=== PATIENT | male | born 1940 | race Caucasian/White ===

== ENCOUNTER 2023-08-28 18:12 | Inpatient (IN) | payer MEDICARE, SELFPAY ==
[2023-08-28 16:42] LABS: % Basophils 1.2 % (0-2); % Eosinophils 1.3 % (0-6); % Immature Granulocytes 0.3 % (0-0.5); % Lymphocytes 9.3 % (20.5-51.1); % Neutrophils 79.9 % (42.2-75.2); Absolute Basophils 0.1 10^3/uL (0-0.2); Absolute Eosinophils 0.1 10^3/uL (0-0.7); Absolute Lymphocytes 0.7 10^3/uL (1.2-3.4); Absolute Monocytes 0.6 10^3/uL (0.1-0.6); Hematocrit 49.1 % (39.0-52.0); Mean Corp Hgb Conc. 32.6 g/dL (33.0-37.0); Mean Corpuscular Hgb 26.9 pg (27.0-31.0); Mean Corpuscular Volume 82.7 fL (80.0-94.0); Mean Platelet Volume 9.7 fL (7.4-10.4); Nucleated Red Blood Cells % 0 % (-); Platelet Count 397 10^3/uL (130-400); Red Blood Cell Count 5.94 10^6/uL (4.70-6.10); Red Cell Dist. Width 16.2 % (11.5-14.5); White Blood Cell Count 7.5 10^3/uL (4.8-10.8)
[2023-08-28 16:49] LABS: ALT (SGPT) 17 U/L (0-50); AST (SGOT) 29 U/L (17-59); Albumin 4.2 g/dl (3.5-5.0); Alkaline Phosphatase 82 U/L (38-126); Blood Urea Nitrogen 35 mg/dl (9-20); Calcium 9.2 mg/dl (8.4-10.2); Carbon Dioxide 32 mmol/L (22-30); Chloride 103 mmol/L (98-107); Glucose 93 mg/dl (70-99); Potassium 4.5 mmol/L (3.5-5.1); Sodium 140 mmol/L (135-145); Total Bilirubin 1.2 mg/dl (0.2-1.3); eGFR 30.85
[2023-08-28 16:56] LABS: NT-proBNP 14300 pg/ml
--- NOTE | 2023-08-28 17:34 | ED.GENMED ---
History of Present Illness
General
Chief Complaint: Breathing Problem
Source: patient and spouse
Time Seen by Provider: 08/28/23 16:48
Travel History
Have you had any contact with someone who has COVID-19?: No
Do you have any symptoms of coronavirus? Fever > 100 degrees, chills, cough, shortness of breath, sore throat, loss of taste or smell, muscle aches, or headache?: No
History of Present Illness
History of Present Illness:
83-year-old male with past medical history of hypertension, hyperlipidemia, CHF, atrial fibrillation, chronic kidney disease presenting to the emergency department for evaluation after he started experiencing worsening shortness of breath when
laying flat as well as with exertion, taking his daily 80 mg of Lasix as prescribed but without any relief. Patient was admitted at this facility in July for similar and was diuresed and was ultimately discharged after a few days. Patient
states that at rest he feels okay. Notes that his weight has been approximately 170 pounds. Denies any cough, chest pain, palpitations, diaphoresis, pleurisy, hemoptysis or any other concerns.
Past History
Past History
ED Past Medical History: Arrthythmia (afib), CHF, GERD, HTN, Hypercholesterolemia, Renal failure and Other (PNA, C-diff)
ED Past Surgical History: Appendectomy and Other (Hernia repair)
Patient has exhibited threatening behavior?: No
PSI?: No
Social History
Tobacco: Former smoker
Alcohol: Occasional
Drug: None
Personal:
Living: with family
Employment: Retired
Family History
Family History: Other (Noncontributory)
Review of Systems
Review of Systems
All Other Systems: ROS reviewed and negative except as documented in HPI and ROS
Phy Exam
Physical Exam
Physical Exam:
GENERAL: Alert , in no apparent distress
EYE: conjunctiva clear
NECK: Supple
ENT: o/p clr, mmm.
CARDIAC: Irregularly irregular rate and rhythm, systolic murmur
LUNGS: Bilateral posterior lung field lower lung rales, no accessory muscle use, no acute respiratory distress, no wheezing or rhonchi
NEUROLOGICAL: Alert and oriented
SKIN: Warm and dry, skin intact.
MUSCULOSKELETAL: well perfused. Trace ankle edema
PSYCH: Normal and appropriate interaction.
Scores
Heart Failure Risk
Heart Failure Risk Score: Yes
History of Stroke or TIA: No
History of intubation for respiratory distress: No
Heart rate on ED arrival >/= 110: No
SaO2 <90% on arrival on room air: No
HR >/=110 during 3min walk test (or too ill to perform test): Yes
ECG has acute ischemic changes: No
Urea >/=12mmol/L (BUN 33.6mg/dL): Yes
Serum CO2>/=35mmol/L: No
Troponin I or T elevated to [place] Level (0.4mg/dL): No
NT-proBNP >/=5,000ng/L (5,000pg/ml): Yes
HF Risk Score: 4
Admission Status: HIGH RISK 26.1% Consider SNF treatment or admission to hospital
Heart Score for Chest Pain Patients
STEMI patient?: Not applicable
Withdrawal Assessment of Alcohol
Withdrawal Assessment Completed?: Not applicable
Course
Orders/Labs/Results
Orders:
Orders
08/28/23 Dinner
Cholesterol Lowering
Cholesterol Lowering: Sodium, 2 Gram
08/28/23 15:59
EKG [Electrocardiogram (*1)] Urgent
Reason for Study: Shortness of Breath
EKG- Treatment ONCE
08/28/23 16:08
CMP [Comprehensive Metabolic Panel] Urgent
Complete Blood Count/With Diff Urgent
NT-proBNP Urgent
08/28/23 16:35
Chest [CR Chest - 2 Views ] Urgent
Comment:
Reason For Exam: SHAH
08/28/23 17:33
Furosemide [Lasix] 60 mg IV NOW STA
08/28/23 17:58
Admit/Transfer Patient As Directed
Co-Sign Provider:
Level of Care: Inpatient admission
Assign to:: Telemetry
Physician / Group: luma
Diagnosis: chf exacerbation
Reason for Telemetry: Subacute Heart Failure
Date to Stop Telemetry: 08/30/23
Time to Stop Telemetry: 11:00
Reason for Hospitalization: chf exacerbation
Expected length of stay greater than two midnights?: Yes
ELOS- Estimated Length of Stay in days: 2
I certify the patient meets the requirements for IP care: Yes
Code Status As Directed
Resuscitation Status: Full Code
08/28/23 18:30
Famotidine [Pepcid] 20 mg PO DAILYPRN PRN
azelastine [Astepro Allergy] 1 spray NASAL DAILY PRN
coenzyme Q10 [Co Q-10] 100 mg PO Q48H
08/28/23 18:30
VTE Contraindication Routine
VTE Mechanical Device Contraindication: Medical Contraindication
Pharmocologic Contraindication: Medical Contraindication
Activity As Directed
Activity Level: As Tolerated
Intake/ Output As Directed
Frequency: Per unit guidelines
Patient Education As Directed
Type: CHF folder
Comment: give on admission. Document in Interdisciplinary Education record
Sleep Apnea Assessment by RN As Directed
Comment:
Physician Instructions:
Vital Signs As Directed
Frequency: Other
Additional Instructions:: Q12 or per unit guidelines if more frequent.
Weight As Directed
Frequency: Daily
Type of Scale: Standing Scale
Comment: Daily morning weight. If unable to stand, use balanced bed scale.
Weight As Directed
Frequency: Once
Type of Scale: Standing Scale
Comment: Upon Admission. If unable to stand, use balanced bed scale.
Pulse Ox/cont/shift [RESP] Routine
Quantity: 1
Special Instructions: Daily pulse oximetry at rest. If greater than 92% at rest also obtain pulse oximetry
while ambulating as tolerated.
08/28/23 18:39
Procalcitonin Routine
PCT Algorithmm Indication: Respiratory
08/28/23 20:00
Apixaban [Eliquis] 2.5 mg PO BID
HydrALAZINE [Apresoline] 75 mg PO BID
Metoprolol Xl [Toprol Xl] 100 mg PO BID
08/29/23 06:00
Complete Blood Count/No Diff IN AM
Comprehensive Metabolic Panel IN AM
08/29/23 08:00
Empagliflozin [Jardiance] 10 mg PO DAILY
Furosemide [Lasix] 40 mg IV BID AT 0800,1600
ISOSORBIDE MONOnitrate ER [Imdur (Extended Release)] 30 mg PO DAILY
Multivitamin [Theragran] 1 tablet PO DAILY
08/29/23 18:00
Atorvastatin [Lipitor] 10 mg PO QPM
Doxazosin Mesylate [Cardura] 4 mg PO QPM
08/30/23 08:00
Polyethylene Glycol Powder [Miralax] 17 grams PO Q48H
08/30/23 11:00
DC Protocol for Telemetry ONCE
Abnormal Lab Results
08/28/23
16:08
MCH 26.9 L pg
(27.0-31.0)
MCHC 32.6 L g/dL
(33.0-37.0)
RDW 16.2 H %
(11.5-14.5)
Absolute Lymphs (auto) 0.7 L 10^3/uL
(1.2-3.4)
Neutrophils % 79.9 H %
(42.2-75.2)
Lymphocytes % 9.3 L %
(20.5-51.1)
Carbon Dioxide 32 H mmol/L
(22-30)
BUN 35 H mg/dl
(9-20)
Creatinine 2.1 H mg/dL
(0.7-1.3)
08/28/23 16:08
08/28/23 16:08
Vital Signs
Initial and Last Documented VS:
Initial Vital Signs
Temp Pulse Resp Pulse Ox
97.4 F 81 20 96
08/28/23 15:53 08/28/23 15:53 08/28/23 15:53 08/28/23 15:53
Last Documented Vital Signs
Temp Pulse Resp BP Pulse Ox
97.9 F 86 17 143/71 95
08/28/23 19:00 08/28/23 19:00 08/28/23 19:00 08/28/23 19:00 08/28/23 19:00
MDM/Problems Addressed
Differential Diagnosis Includes:
CHF, worsening renal failure, valvular disease, cardiac dysrhythmia, less likely infectious etiology such as pneumonia
MDM/Problems Addressed:
83-year-old male present emergency department for evaluation of gradually worsening shortness of breath with exertion as well as orthopnea x 2 days despite taking daily 80 mg Lasix p.o. as prescribed. Had a recent admission here for similar in
July. Follows with Dr. Benjamin from [facility]. Lab work was initiated in triage and shows no leukocytosis. Patient does have chronic kidney disease which is right around patient's baseline. Patient's BNP is also
significantly elevated although appears to be within the normal range when patient has been admitted in the past. Patient's chest x-ray shows cardiomegaly with bilateral lower lobe pleural effusions. Will initiate patient on IV Lasix. Plan to
admit.
Chronic conditions affecting care: Cardiomyopathy and Kidney disease
Acute Exacerbation and/or Progression of Chronic Illness: Cardiomyopathy and Kidney disease
*Radiology
Radiology exam reviewed: preliminary read by ED provider (Bilateral pleural effusions with cardiomegaly)
*Pulse Oximetry
Patient hypoxic: no
*EKG
Interpreted by ED Provider?: Yes
Comparison EKG: no changes
Heart Rate: 80
Rate: normal
Rhythm: a-fib
[place]: normal axis
Ischemia: no ischemia
*Critical Care Note
Total Time (30-74mins, 75-104mins- exclusive of procedures): Not Applicable
Data Reviewed
Review of Other/Old Records Reveals: Labs, Records and Discharge Summary
Source: patient, records and spouse
Patient Management
Discussion with other providers: Hospitalist
Escalation/DeEscalation of care consider admission/obs:
Hospitalist is aware and accepts patient for continued evaluation and treatment.
ED Attending Note
-
Portions of this chart may have been created with voice recognition software.� Occasional wrong word or��sound alike� substitutions may have occurred due to the inherent limitations of voice recognition software.
Discharge Plan
Departure
Patient Disposition: Admit
Date of Disposition: 08/28/23
Time of Disposition: 17:43
Presentation/result/management discussed w/ accepting MD/DO: Hospitalist
Discharge Problem:
Acute exacerbation of CHF (congestive heart failure), Pleural effusion, CKD (chronic kidney disease)
Interventions
Interventions:
*Risk Screen - Suicide Last Done: 08/28/23 15:53
*Neglect/Abuse Screening Last Done: 08/28/23 15:53
*ED COVID-19 Vaccine History Last Done: 08/28/23 15:53
*Nursing Disposition Last Done: 08/28/23 18:35
ED- Cardiac Assessment Last Done: 08/28/23 17:52
ED- Pulmonary Assessment Last Done: 08/28/23 17:52
Discharge Date and Time
Discharge Date/Time: 08/28/23 18:37
[2023-08-28] MEDS: LASIX 60 MG IV (17:45)
[2023-08-28 17:47] VITALS: BP 133/84
--- NOTE | 2023-08-28 18:05 | HPS.HSE ---
Family Physician
-
Family Physician:
Chief Complaint
-
shortness of breath
History of Present Illness
84-year-old male with past medical history of atrial fibrillation, CHF, hypertension, hyperlipidemia, CKD, GERD, C. difficile, presenting to the emergency room after having shortness of breath when lying down flat as well as with exertion. He
denies any cough, chest pain, palpitations, sweating or fevers or chills. He has slightly more lower extremity JULISSA but denies any weight gain. He has been taking 80 mg of Lasix per day for the past few weeks.
Medical History
Past Medical History
Past Medical History: Reports Other (atrial fibrillation, CHF, hypertension, hyperlipidemia, CKD, GERD, C. difficile)
Past Surgical History: Reports None
Social History
Tobacco: Non-smoker
Alcohol: Occasional
Drug: None
Family History
Family History: Not pertinent
Allergies / Home Medications
Allergies reflects when Allergies were last updated in [facility].
Home Medications with original date entered in [facility]
Allergy/Medication List:
Allergies
Allergy/AdvReac Type Severity Reaction Status Date / Time
No Known Allergies Allergy Verified 08/28/23 15:58
Home Medications
atorvastatin 10 mg tablet 10 mg PO QPM High cholesterol 12/26/19
apixaban 2.5 mg tablet (Eliquis) 2.5 mg PO BID Blood clot prevention/tx 10/22/22
coenzyme Q10 100 mg capsule (Co Q-10) 100 mg PO Q48H Supplement 10/22/22
doxazosin 4 mg tablet 4 mg PO QPM Urinary issue 10/22/22
isosorbide mononitrate 30 mg tablet,extended release 24 hr 30 mg PO DAILY Heart disease/condition 11/15/22
hydralazine 50 mg tablet 75 mg PO BID Blood Pressure 01/08/23
metoprolol succinate 100 mg tablet,extended release 24 hr 100 mg PO BID Heart Failure #60 tabs 01/11/23
famotidine 20 mg tablet (Pepcid) 20 mg PO DAILY PRN heartburn/gi issues 07/30/23
furosemide 80 mg tablet 80 mg PO DAILY Fluid Retention/Swelling 07/30/23
multivitamin-ferrous fumarate-folic acid 18 mg-400 mcg tablet (Centrum) 1 tab PO DAILY Supplement 07/30/23
azelastine 205.5 mcg (0.15 %) nasal spray (Astepro Allergy) 1 spray intranasal DAILY PRN allergies 08/28/23
empagliflozin 10 mg tablet (Jardiance) 10 mg PO DAILY 08/28/23
polyethylene glycol 3350 17 gram oral powder packet (Miralax) 17 g PO Q48H Constipation 08/28/23
Review of Systems
-
History Source: Patient
A 12 point ROS was completed and negative except as noted: Yes
Constitutional: Reports No Symptoms
EENT: Reports No Symptoms
Respiratory: Reports See HPI
Cardiac: Reports See HPI
Abdomen/GI: Reports No Symptoms
: Reports No Symptoms
Musculoskeletal: Reports No Symptoms
Skin: Reports No Symptoms
Neurological: Reports No Symptoms
Endocrine: Reports No Symptoms
Hematologic/Lymphatic: Reports No Symptoms
Psych: Reports No Symptoms
Physical Exam
Vital Signs
Vital Signs
Temp Pulse Resp BP Pulse Ox
97.4 F 79 15 133/84 94
08/28/23 15:53 08/28/23 17:47 08/28/23 17:47 08/28/23 17:47 08/28/23 17:47
Physical Exam
General: Well Developed, Well Nourished and No Apparent Distress
HEENT: NormoCephalic, Moist mucous membranes and Atraumatic
Respiratory: Rales
Cardiac: S1/S2 and Regular Rhythm; No Murmur or Rub
GI: Soft, Non Tender, Non Distended and Normal Bowel Sounds; No Organomegaly
Rectal: Deferred by Provider
Musculoskeletal: No Clubbing, No Cyanosis and No Edema
Skin: No Rash
Neuro: Nonfocal/grossly intact
Laboratory Results
-
08/28/23 16:08
08/28/23 16:08
Laboratory Results
Total Bilirubin 1.2 mg/dl (0.2-1.3) 08/28/23 16:08
AST 29 U/L (17-59) 08/28/23 16:08
ALT 17 U/L (0-50) 08/28/23 16:08
Alkaline Phosphatase 82 U/L (38-126) 08/28/23 16:08
Data Reviewed
-
Lab Data: Labs Reviewed by me
Old Records: Reviewed
Impression/Plan
-
IMPRESSION:
PLAN:
# Acute on chronic HFrEF exacerbation
-Cardiac BNP 14,000 from 18,000
-Chest x-ray interpretated as moderate right middle lobe and mild right lower lobe pneumonia but clinically does not seem to correlate with presentation
-check Procalcitonin
-Check I's and O's, daily weights
-60 IV Lasix
-40 IV Lasix twice daily
-Prior echo shows EF of 27%
-Continue isosorbide mononitrate
-continue Jiardiance
-Cardiology consulted
Moderate mitral regurgitation
Mild aortic regurgitation
Mild tricuspid regurgitation
Small pericardial effusion
Permanent atrial fibrillation
-Continue metoprolol
-Continue Eliquis
CKD 3
-Renal function at baseline
History of hydropneumothorax status post chest tube
Essential hypertension
-Continue hydralazine
Hyperlipidemia
-Continue statin
History of C. difficile
GERD
-Continue Pepcid
BPH
-Continue doxazosin
Ex-smoker
Full code
DVT prophylaxis Eliquis
Cardiac diet
[2023-08-28 19:00] VITALS: BP 138/61; BP 143/71; BMI 25.0
[2023-08-28 19:18] LABS: Procalcitonin < 0.05 ng/ml (0.0-0.25)
[2023-08-28 19:38] VITALS: BMI 25.0
[2023-08-28] MEDS: APRESOLINE 75 MG PO (20:50)
[2023-08-28] MEDS: ELIQUIS 2.5 MG PO (20:51)
[2023-08-28] MEDS: TOPROL XL 100 MG PO (20:51)
[2023-08-28 23:00] VITALS: BP 142/68
[2023-08-29 03:00] VITALS: BP 136/77
[2023-08-29 06:00] VITALS: BMI 24.3
[2023-08-29 06:56] LABS: Hematocrit 47.7 % (39.0-52.0); Mean Corp Hgb Conc. 33.5 g/dL (33.0-37.0); Mean Corpuscular Hgb 26.8 pg (27.0-31.0); Mean Platelet Volume 9.4 fL (7.4-10.4); Platelet Count 370 10^3/uL (130-400); Red Blood Cell Count 5.96 10^6/uL (4.70-6.10); Red Cell Dist. Width 15.9 % (11.5-14.5); White Blood Cell Count 8.9 10^3/uL (4.8-10.8)
[2023-08-29 07:00] VITALS: BP 137/69
[2023-08-29 07:43] LABS: ALT (SGPT) 14 U/L (0-50); AST (SGOT) 25 U/L (17-59); Albumin 3.6 g/dl (3.5-5.0); Alkaline Phosphatase 77 U/L (38-126); Blood Urea Nitrogen 36 mg/dl (9-20); Calcium 9.2 mg/dl (8.4-10.2); Carbon Dioxide 33 mmol/L (22-30); Chloride 100 mmol/L (98-107); Estimated Creatinine Clearance 28 ml/min; Glucose 101 mg/dl (70-99); Sodium 141 mmol/L (135-145); Total Protein 6.3 g/dl (6.3-8.2); eGFR 30.85
[2023-08-29] MEDS: APRESOLINE 75 MG PO ×2 (07:53→20:42)
[2023-08-29] MEDS: THERAGRAN 1 TABLET PO (07:53)
[2023-08-29] MEDS: ELIQUIS 2.5 MG PO ×2 (07:53→20:43)
[2023-08-29] MEDS: IMDUR (EXTENDED RELEASE) 30 MG PO (07:53)
[2023-08-29] MEDS: JARDIANCE 10 MG PO (07:53)
[2023-08-29] MEDS: LASIX 40 MG IV ×2 (07:54→17:04)
[2023-08-29] MEDS: TOPROL XL 100 MG PO ×2 (07:54→20:43)
--- NOTE | 2023-08-29 08:06 | W.PN.HOSP.TC ---
Today's Communication/Plan
-
Continue with IV diuresis which seems to be symptomatically responding
Monitor weights and BMP in setting of CKD
Will defer to cardiology for repeat echocardiogram left which was done in March
Assessment / Plan
Assessment / Plan
84-year-old male with past medical history of atrial fibrillation, CHF, hypertension, hyperlipidemia, CKD, GERD, C. difficile, presenting to the emergency room after having shortness of breath when lying down flat as well as with exertion.� He
denies any cough, chest pain, palpitations, sweating or fevers or chills.� He has slightly more lower extremity JULISSA but denies any weight gain.� He has been taking 80 mg of Lasix per day for the past few weeks.
# Acute on chronic HFrEF exacerbation
-Cardiac BNP 14,000 from 18,000
-Chest x-ray interpretated as moderate right middle lobe and mild right lower lobe pneumonia but clinically does not seem to correlate with presentation
-check Procalcitonin was normal shedding further doubt/would not treat with antibiotics
-Check I's and O's, daily weights
-60 IV Lasix
-40 IV Lasix twice daily
-Prior echo shows EF of 27% from echo March 2023/was due to have repeat in 1 month
-Continue isosorbide mononitrate
-continue Jiardiance
-Cardiology consulted
Moderate mitral regurgitation
Mild aortic regurgitation
Mild tricuspid regurgitation
Small pericardial effusion
Permanent atrial fibrillation
-Adequate rate control
-Continue metoprolol
-Continue Eliquis
CKD 3
-Renal function at baseline
History of hydropneumothorax status post chest tube
Essential hypertension
-Continue hydralazine
Hyperlipidemia
-Continue statin
History of C. difficile
GERD
-Continue Pepcid
BPH
-Continue doxazosin
Ex-smoker
Full code
DVT prophylaxis Eliquis
Cardiac diet
Anticipated Discharge: 24 - 48 hours
Subjective/Interval History
-
Date of Service: August 29, 2023
Patient already feeling better and able to at least semirecumbent overnight that he was unable to do at home he lost about 5 pounds of weight since arrival. He has had a brisk diuresis throughout the night
Objective Data
-
Labs:
Laboratory Results
08/29/23
06:42
WBC 8.9
Hgb 16.0
Hct 47.7
Plt Count 370
Sodium 141
Potassium 4.0
Chloride 100
Carbon Dioxide 33 H
BUN 36 H
Creatinine 2.1 H
Glucose 101 H
Calcium 9.2
Total Bilirubin 2.0 H
AST 25
ALT 14
Alkaline Phosphatase 77
Vital Signs:
Vital Signs
Temp Pulse Resp BP Pulse Ox
97.5 F 76 16 137/69 93
08/29/23 03:00 08/29/23 07:54 08/29/23 03:00 08/29/23 07:54 08/29/23 03:00
I&O
08/28/23 08/29/23 08/30/23
06:59 06:59 06:59
Output Total 850 / 850
Balance -850 / -850
Review of Systems
-
Constitutional: Reports Weight Gain
EENT: Reports No Symptoms Reported
Respiratory: Reports Trouble Breathing
Cardiac: Reports No Symptoms
Abdomen/GI: Reports No Symptoms
Physical Exam
-
General: Well Developed
HEENT: Normocephalic
Respiratory: Clear to Auscultation and Clear to Percussion
Cardiac: Regular Rhythm
GI: Soft, Nontender and Nondistended
Genito-urinary: No Costovertebral Tender
Skin: Warm
Neuro: Awake, Alert, Oriented, AO x 3 and No Motor Deficits
Psych: Calm
Data Reviewed
-
Total Time Spent with Patient (in minutes): 45
Diagnostic Radiology: Report Reviewed by me (Chest x-ray results reviewed and noted infiltrates right middle lobe and left mild right lower lobe)
Labs: Labs Reviewed by me (Creatinine stable at 2.1)
[2023-08-29 11:00] VITALS: BP 131/64
--- NOTE | 2023-08-29 15:06 | CON.CAR ---
Addendum entered and electronically signed by Angel Sheldon MD 08/29/23 17:37:
I saw and examined the patient.
The Technical Sales Support Manager's note was reviewed and I agree with the note.
Comment:
GEN: No distress, awake, Ox3
HEENT: supple, anicteric, mmm
LUNGS: scatt rhonchi
CV: irreg, S1/S2, 1/6 syst LSB, no gallop
ABD: soft, BS+, NT/ND
EXT: No edema
NEURO: Gross non-focal
SKIN: No rash
Plan:
He has a past medical history of chronic heart failure with reduced ejection fraction, permanent atrial fibrillation, pleural effusions, left bundle branch block, and hypertension. He presents with fatigue, shortness of breath, and difficulty
sleeping at night. He denies any chest pains. His ejection fraction has been anywhere in the 30 to 40% range over the past 12 months.
Continue IV Lasix 40 mg IV twice daily and reassess in AM. He is already been diuresing well. His creatinine is stable at 2.1.
Repeat echo with EF 35 to 40% with mild to moderate mitral, aortic, and tricuspid regurgitation. His PA pressure is elevated on his echo so we will attempt to diurese him until his kidney function worsens.
Continue Imdur and hydralazine.
Continue Jardiance.
His A-fib is overall rate controlled. Continue the Toprol and Eliquis. We will follow him on telemetry.
Original Note:
Consultation
Consultation Request
Date/Time Consultation Requested: 08/29/23
Date/Time Consultation Performed: 08/29/23
Requesting Provider: Dr. Higgins
Performing Provider: Dr. Sheldon
Reason for Consultation: Acute HF
Medical History
-
History of Present Illness:
Patient came to [facility] yesterday with SHAH and trouble sleeping at night and is now admitted with acute HF. Patient has had 6 admissions for HF since 09/2022. It was around that time that his paroxysmal Afib became more permanent, but HRs have been
controlled with Toprol XL 100 mg BID and he denies palpitations. Patient also had a slight drop in EF around that time to about 40%. Then patient had an admission 03/2023 for spontaneous left hydropneumothorax with exudative fluid on cytology and he
was managed with a chest tube and antibiotics, his EF dropped to 25-30% at that time. Patient was admitted most recently from 07/30/23 until 08/02/23 for acute HF and weighed 171 lbs at discharge. He has not been seen in the office since discharge, but
reports that he watches his fluid intake and weighs himself daily without increase in weight. He also has not noticed any edema or bloating. He eats at a restaurant several times a week. Patient has known CKD 3b and is not on LAURA/ARB/aldosterone
antagonist, but does take Toprol XL and a regimen of nitrates and hydralazine. Patient cannot afford SGLT-2 and even if he could his partner, Antonietta, has previously decided that they are not a good medication for the patient.
PMH:
Chronic HFrEF
Cardiomyopathy, EF 27-41% by echo 05/18/23
CKD 3b
Permanent Afib
Chronic Eliquis OAC
HTN
Mild aortic regurgitation
Mod MR
Chronic LBBB
Hyperlipidemia
Palpable abdominal aorta -normal aortic ultrasound 11/2022
h/o C.diff
Past Medical History
Past Medical History: Other (in HPI)
Past Surgical History: Other (in HPI)
Social History
Tobacco: Former Smoker
Alcohol: Occasional
Drug: None
Personal: Partner
Living: With Family
Family History
Family History: CAD and Hypertension
Allergies / Home Medications
Allergy/AdvReac Type Severity Reaction Status Date / Time
No Known Allergies Allergy Verified 08/28/23 15:58
Medication Instructions Recorded Confirmed Type
atorvastatin 10 mg tablet 10 mg PO QPM High cholesterol 12/26/19 08/28/23 History
apixaban 2.5 mg tablet (Eliquis) 2.5 mg PO BID Blood clot 10/22/22 08/28/23 History
prevention/tx
coenzyme Q10 100 mg capsule (Co 100 mg PO Q48H Supplement 10/22/22 08/28/23 History
Q-10)
doxazosin 4 mg tablet 4 mg PO QPM Urinary issue 10/22/22 08/28/23 History
isosorbide mononitrate 30 mg 30 mg PO DAILY Heart 11/15/22 08/28/23 History
tablet,extended release 24 hr disease/condition
hydralazine 50 mg tablet 75 mg PO BID Blood Pressure 01/08/23 08/28/23 History
metoprolol succinate 100 mg 100 mg PO BID Heart Failure #60 01/11/23 08/28/23 Rx
tablet,extended release 24 hr tabs
famotidine 20 mg tablet (Pepcid) 20 mg PO DAILY PRN heartburn/gi 07/30/23 08/28/23 History
issues
furosemide 80 mg tablet 80 mg PO DAILY Fluid 07/30/23 08/28/23 History
Retention/Swelling
multivitamin-ferrous 1 tab PO DAILY Supplement 07/30/23 08/28/23 History
fumarate-folic acid 18 mg-400 mcg
tablet (Centrum)
azelastine 205.5 mcg (0.15 %) 1 spray intranasal DAILY PRN 08/28/23 08/28/23 History
nasal spray (Astepro Allergy) allergies
empagliflozin 10 mg tablet 10 mg PO DAILY Heart Failure 08/28/23 08/28/23 History
(Jardiance)
polyethylene glycol 3350 17 gram 17 g PO Q48H Constipation 08/28/23 08/28/23 History
oral powder packet (Miralax)
Review of Systems
-
History Source: Patient
All other systems: Negative unless noted
Physical Exam
Vital Signs
Temp Pulse Resp BP Pulse Ox
97.6 F 68 18 131/64 96
08/29/23 11:00 08/29/23 11:00 08/29/23 11:00 08/29/23 11:00 08/29/23 11:00
GEN: NAD, AAO x3
HEENT: EOMI, MMM
LUNGS: Decreased BS B/L without wheeze or rales
CV: Irregularly irregular, S1/S2, no murmur
ABD: soft, BS+, NT, ND
EXT: Trace B/L LE edema. No clubbing, cyanosis or lesions B/L
NEURO: Gross non-focal
SKIN: Warm, dry and pink. No rash
Lab Results
08/29/23 06:42
08/29/23 06:42
Qmi-H-Dmegtvsoevd Pept 52588 pg/ml 08/28/23 16:08
Impression / Plan
-
PCP: Dr. Gutierres
Cardiology: Dr. SOCORRO Benjamin
Nephrology: Dr. Lao
Impression:�
Acute on chronic HFrEF
Cardiomyopathy, EF 27-41% by echo 05/18/23
CKD 3b
Permanent Afib
Chronic Eliquis OAC
HTN
Mild aortic regurgitation
Mod MR
Chronic LBBB
Hyperlipidemia
Palpable abdominal aorta -normal aortic ultrasound 11/2022
h/o C.diff
Lexiscan mibi 01/10/23: No evidence of ischemia
Echo 04/11/21: EF 45-50%, mild conc LVH, mild MR, mild aortic regurgitation
Echo 10/23/22: EF 40%, moderate MR, mild aortic regurgitation, mod TR with PASP 49 mmHg
Echo 04/16/23: Ejection fraction 25 to 30%, moderate MR, aortic sclerosis with mild AI, pleural effusions
Echo 05/18/23: EF 27% by volumetric assessment and 41% by Nunez
Echo 08/29/23: preliminary report EF 40%, final report pending
Plan:
-Patient came to [facility] yesterday with SHAH and trouble sleeping at night and is now admitted with acute HF. Patient has had 6 admissions for HF since 09/2022. It was around that time that his paroxysmal Afib became more permanent, but HRs have been
controlled with Toprol XL 100 mg BID and he denies palpitations. Patient also had a slight drop in EF around that time to about 40%. Then patient had an admission 03/2023 for spontaneous left hydropneumothorax with exudative fluid on cytology and he
was managed with a chest tube and antibiotics, his EF dropped to 25-30% at that time. Patient was admitted most recently from 07/30/23 until 08/02/23 for acute HF and weighed 171 lbs at discharge. He has not been seen in the office since discharge, but
reports that he watches his fluid intake and weighs himself daily without increase in weight. He also has not noticed any edema or bloating. He eats at a restaurant several times a week. Patient has known CKD 3b and is not on LAURA/ARB/aldosterone
antagonist, but does take Toprol XL and a regimen of nitrates and hydralazine. Patient cannot afford SGLT-2 and even if he could his partner, Antonietta, has previously decided that they are not a good medication for the patient.
-Patient is near his dry weight, but reports SHAH and maybe his insomnia is orthopnea because he says he feels better sleeping in a recliner. He also reports symptomatic improvement after Lasix 60 mg IV in the ER last night and then 40 mg IV BID
since then.
-Cont to diurese and follow Cre. Baseline Cre is 1.8 to 2.0.
-Will likely need to establish a new dry weight at time of discharge.
-Not on LAURA/ARB/Aldactone given renal insufficiency. Continue medical therapy with hydralazine, Imdur, and Toprol. Jardiance was considered at last OV, but he cannot afford it and his partner previously thought SGLT-2 meds were not a good idea for
the patient.
-Afib is permanent. ECG reviewed by me with Afib. Cont Eliquis 2.5 mg BID. HRs controlled on usual dose of Toprol XL 100 mg BID
-Preliminary echo report indicates EF has improved a bit. Await final report.
--- NOTE | 2023-08-29 15:09 | CM ---
Reviewed chart, met with patient to obtain information for assessment. Patient was in the hallway waiting for his s.o. He stated that he lives with her in a one floor apartment with no steps.
Patient stated that he drives and can get to all of his appointments do his own shopping.
He is independent with all ADLs, dressing, bathing, toileting and ambulates without device. 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
He denied and DME in his home.
He has never had VN services or been to a SNF.
Patient has a prescription plan and uses the [facility] in [place] for all of his medications. His PCP is Dr. Gutierres.
Patient denied any services at time of discharge and stated that he will be able to return home with his when medically cleared.
Plan: Case management will continue to follow and assist with discharge planning. Patient would like to return home when medically cleared and does not feel he will have any needs at time of discharge.
[2023-08-29 15:45] VITALS: BP 143/71
[2023-08-29] MEDS: LIPITOR 10 MG PO (17:14)
[2023-08-29] MEDS: CARDURA 4 MG PO (18:01)
[2023-08-29 19:00] VITALS: BP 149/69
[2023-08-29 23:00] VITALS: BP 136/62
[2023-08-30 03:00] VITALS: BP 127/62
[2023-08-30 05:52] LABS: Blood Urea Nitrogen 38 mg/dl (9-20); Calcium 8.7 mg/dl (8.4-10.2); Carbon Dioxide 31 mmol/L (22-30); Chloride 99 mmol/L (98-107); Estimated Creatinine Clearance 27 ml/min; Glucose 98 mg/dl (70-99); Potassium 3.7 mmol/L (3.5-5.1); Sodium 141 mmol/L (135-145); eGFR 29.17
[2023-08-30 06:00] VITALS: BMI 24.2
[2023-08-30 07:00] VITALS: BP 112/66
[2023-08-30] MEDS: MIRALAX 17 GRAMS PO (08:11)
[2023-08-30] MEDS: TOPROL XL 100 MG PO (08:11)
[2023-08-30] MEDS: THERAGRAN 1 TABLET PO (08:11)
[2023-08-30] MEDS: IMDUR (EXTENDED RELEASE) 30 MG PO (08:11)
[2023-08-30] MEDS: ELIQUIS 2.5 MG PO (08:11)
[2023-08-30] MEDS: JARDIANCE 10 MG PO (08:11)
[2023-08-30] MEDS: APRESOLINE 75 MG PO (08:16)
[2023-08-30] MEDS: LASIX 40 MG IV (08:16)
--- NOTE | 2023-08-30 08:16 | W.PN.HOSP.TC ---
Today's Communication/Plan
-
Some diminished GFR and escalating creatinine with plateauing of weight suggest approaching dry weight
Will defer to cardiology. Transition to oral diuresis
Symptomatically improved
Assessment / Plan
Assessment / Plan
84-year-old male with past medical history of atrial fibrillation, CHF, hypertension, hyperlipidemia, CKD, GERD, C. difficile, presenting to the emergency room after having shortness of breath when lying down flat as well as with exertion.� He
denies any cough, chest pain, palpitations, sweating or fevers or chills.� He has slightly more lower extremity JULISSA but denies any weight gain.� He has been taking 80 mg of Lasix per day for the past few weeks.
# Acute on chronic HFrEF exacerbation
-Cardiac BNP 14,000 from 18,000
-Chest x-ray interpretated as moderate right middle lobe and mild right lower lobe pneumonia but clinically does not seem to correlate with presentation
-check Procalcitonin was normal shedding further doubt/would not treat with antibiotics
-Check I's and O's, daily weights
-60 IV Lasix
-40 IV Lasix twice daily/transition to oral as per cardiology
-Prior echo shows EF of 27% from echo March 2023/was due to have repeat in 1 month/repeated August 29 without significant change with EF of 41%. stage I diastolic abnormality and PA pressures about 70 mmHg
-Continue isosorbide mononitrate
-continue Jiardiance
-Cardiology consulted
Moderate mitral regurgitation
Mild aortic regurgitation
Mild tricuspid regurgitation
Small pericardial effusion/small pleural effusion
Permanent atrial fibrillation
-Adequate rate control
-Continue metoprolol
-Continue Eliquis
CKD 3
-Renal function at baseline
History of hydropneumothorax status post chest tube
Essential hypertension
-Continue hydralazine
Hyperlipidemia
-Continue statin
History of C. difficile
GERD
-Continue Pepcid
BPH
-Continue doxazosin
Ex-smoker
Full code
DVT prophylaxis Eliquis
Cardiac diet
Anticipated Discharge: Within 24 hours
Subjective/Interval History
-
Date of Service: August 30, 2023
Slept recumbent last night and slept well has no complaints this morning and feeling better.
Objective Data
-
Labs:
Laboratory Results
08/30/23
04:57
Sodium 141
Potassium 3.7
Chloride 99
Carbon Dioxide 31 H
BUN 38 H
Creatinine 2.2 H
Glucose 98
Calcium 8.7
Vital Signs:
Vital Signs
Temp Pulse Resp BP Pulse Ox
98.3 F 70 18 127/62 95
08/30/23 03:00 08/30/23 03:00 08/30/23 03:00 08/30/23 03:00 08/30/23 03:00
I&O
08/29/23 08/30/23 08/31/23
06:59 06:59 06:59
Intake Total 1020 / 1020
Output Total 850 / 850 1700 / 1700
Balance -850 / -850 -680 / -680
Review of Systems
-
History Source: Patient
All other systems: Reviewed and negative
Respiratory: Reports No Symptoms
Cardiac: Reports No Symptoms
Physical Exam
-
General: Well Developed
HEENT: Normocephalic
Respiratory: Clear to Auscultation
Cardiac: Irregular Rhythm
GI: Soft, Nontender and Nondistended
Neuro: Awake
Psych: Calm
Data Reviewed
-
Total Time Spent with Patient (in minutes): 45
Medical Tests (Nuc Med, Echo etc): Report Reviewed by me
Labs: Labs Reviewed by me (Creatinine now up to 2.2/weight seems to have plateaued at 76 kg)
--- NOTE | 2023-08-30 08:39 | W.PN.CARDCBS ---
Addendum entered and electronically signed by Que Benjamin MD 08/30/23 11:10:
He feels better and wants to go home
Medications: Furosemide 40 mg IV twice daily, Jardiance 10 mg a day, apixaban 2.5 mg twice, atorvastatin 10 mg a day, Cardura 4 mg a day, hydralazine 75 twice daily, isosorbide 30 mg daily, metoprolol ER 100 mg twice daily
Allergies none,
outpatient medications furosemide 80 mg daily
PMH/PSH/SH/FH: Reviewed
ROS negative except as above
112/66, pulse 80s, intake and output -0.7 L, blood pressures 120s to 140s systolic, weight is 76.3 kg, down 0.6 kg, pulse overall fairly well-controlled
Head neck exam unremarkable, lungs are clear, regular rate and rhythm, no obvious murmurs JVD okay, neuro nonfocal, extremities without significant edema, pulses palpable, musculoskeletal intact
BUN/creatinine 38 and 2.2, potassium 3.7, creatinine had been 2.1, proBNP is 14,300, had been 18,200 on the eighth
Impression:�
Acute on chronic HFrEF
Cardiomyopathy, EF 27-41% by echo 05/18/23
CKD 3b
Permanent Afib
Chronic Eliquis OAC
HTN
Mild AR
Mod MR
Chronic LBBB
Hyperlipidemia
Palpable abdominal aorta -normal aortic ultrasound 11/2022
h/o C.diff
Lexiscan mibi 01/10/23: No evidence of ischemia
Echo 04/11/21: EF 45-50%, mild conc LVH, mild MR, mild aortic regurgitation
Echo 10/23/22: EF 40%, moderate MR, mild aortic regurgitation, mod TR with PASP 49 mmHg
Echo 04/16/23: Ejection fraction 25 to 30%, moderate MR, aortic sclerosis with mild AI, pleural effusions
Echo 05/18/23: EF 27% by volumetric assessment and 41% by Nunez
Echo 08/29/2023: EF 36-41%, stage I diastolic dysfunction, mild-mod MR, mild-mod AR, mild-mod TR, estimated PAP 60-70 mmHg
Plan:
CHF: He appears euvolemic but has had multiple hospital stays in the last 9 to 12 months, at least 6
He has some room to improve with regards to salt intake. He will work on this.
With multiple readmissions, risk-benefit of digoxin at low-dose probably makes sense.
I think he needs an increase in his furosemide dosing
Continue nitrates hydralazine, not candidate for LAURA/ARB/Entresto, he is now on Jardiance
Longstanding permanent atrial fibrillation: Ventricular response is relatively slow and with addition of digoxin we will decrease metoprolol ER to 50 mg twice daily
CKD 4: Relatively stable
Okay for discharge from cardiac standpoint.
Recommended cardiac meds:
Furosemide 80 mg in a.m. and 40 mg in p.m. (p.m. dose is new)
Jardiance 10 mg a day
Apixaban 2.5 mg twice daily
Atorvastatin 10 mg daily
Doxazosin 4 mg at bedtime
Hydralazine 75 mg twice daily
Isosorbide mononitrate 30 mg a day
Digoxin 62.5 mcg daily
Metoprolol ER 50 mg twice daily (lower dose)
Please check BMP and digoxin level in 1 week
We will arrange for cardiac follow-up
Original Note:
Today's Communication / Plan
-
OK to transition to PO lasix 80mg daily
Start digoxin 62.5 mcg daily
Reduce Toprol to 75mg BID
Will arrange follow up.
Impression / Plan
-
PCP: Dr. Gutierres
Cardiology: Dr. SOCORRO Benjamin
Nephrology: Dr. Lao
Impression:�
Acute on chronic HFrEF
Cardiomyopathy, EF 27-41% by echo 05/18/23
CKD 3b
Permanent Afib
Chronic Eliquis OAC
HTN
Mild AR
Mod MR
Chronic LBBB
Hyperlipidemia
Palpable abdominal aorta -normal aortic ultrasound 11/2022
h/o C.diff
Lexiscan mibi 01/10/23: No evidence of ischemia
Echo 04/11/21: EF 45-50%, mild conc LVH, mild MR, mild aortic regurgitation
Echo 10/23/22: EF 40%, moderate MR, mild aortic regurgitation, mod TR with PASP 49 mmHg
Echo 04/16/23: Ejection fraction 25 to 30%, moderate MR, aortic sclerosis with mild AI, pleural effusions
Echo 05/18/23: EF 27% by volumetric assessment and 41% by Nunez
Echo 08/29/2023: EF 36-41%, stage I diastolic dysfunction, mild-mod MR, mild-mod AR, mild-mod TR, estimated PAP 60-70 mmHg
Plan:
-Presented with SHAH and trouble sleeping. Admitted with acute heart failure exacerbation.
-Diuresing with IV lasix 40mg BID. Weight down 6lbs this admission, down 1lb overnight to 168lbs.
-Symptomatically improved. Creat up slightly to 2.2. Baseline creat is 1.8-2.0.
-Likely stable for transition to PO lasix 80mg daily.
-Continue medical therapy with hydralazine, Imdur, Jardiance, and Toprol. Not on LAURA/ARB/Aldactone due to renal function.
-Echo 08/29 with EF 36-41% as noted above with mild-moderate valvular disease.
-Afib is permanent. Cont Eliquis 2.5 mg BID. Will start low dose digoxin and lower dose of Toprol to 75mg BID. Continue to follow HRs.
-Will arrange follow up
HPI: Patient came to [facility] yesterday with SHAH and trouble sleeping at night and is now admitted with acute HF. Patient has had 6 admissions for HF since 09/2022. It was around that time that his paroxysmal Afib became more permanent, but HRs have been
controlled with Toprol XL 100 mg BID and he denies palpitations. Patient also had a slight drop in EF around that time to about 40%. Then patient had an admission 03/2023 for spontaneous left hydropneumothorax with exudative fluid on cytology and he
was managed with a chest tube and antibiotics, his EF dropped to 25-30% at that time. Patient was admitted most recently from 07/30/23 until 08/02/23 for acute HF and weighed 171 lbs at discharge. He has not been seen in the office since discharge, but
reports that he watches his fluid intake and weighs himself daily without increase in weight. He also has not noticed any edema or bloating. He eats at a restaurant several times a week. Patient has known CKD 3b and is not on LAURA/ARB/aldosterone
antagonist, but does take Toprol XL and a regimen of nitrates and hydralazine. Patient cannot afford SGLT-2 and even if he could his partner, Antonietta, has previously decided that they are not a good medication for the patient.
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
Subjective
Date of Service: August 30, 2023
Feeling better. Breathing improved and able to sleep without difficulty last night.
Objective
Labs:
08/29/23 06:42
08/30/23 04:57
Labs
Hgb 16.0 g/dL (13.0-18.0) 08/29/23 06:42
Hct 47.7 % (39.0-52.0) 08/29/23 06:42
Plt Count 370 10^3/uL (130-400) 08/29/23 06:42
Sodium 141 mmol/L (135-145) 08/30/23 04:57
Potassium 3.7 mmol/L (3.5-5.1) 08/30/23 04:57
BUN 38 mg/dl (9-20) H 08/30/23 04:57
Creatinine 2.2 mg/dL (0.7-1.3) H 08/30/23 04:57
Glucose 98 mg/dl (70-99) 08/30/23 04:57
Vital Signs and I&O:
Vital Signs
Temp Pulse Resp BP Pulse Ox
98.3 F 82 18 112/66 95
08/30/23 03:00 08/30/23 08:16 08/30/23 03:00 08/30/23 08:16 08/30/23 03:00
Vital Signs
Temp Pulse Resp BP Pulse Ox
98.3 F 82 18 112/66 95
08/30/23 03:00 08/30/23 08:16 08/30/23 03:00 08/30/23 08:16 08/30/23 03:00
Intake & Output
08/28/23 08/29/23 08/30/23 08/31/23
06:59 06:59 06:59 06:59
Intake Total 1020 / 1020
Output Total 850 / 850 1700 / 1700
Balance -850 / -850 -680 / -680
Physical Exam
Physical Exam
General: No acute distress, AAOX3
Neck: Negative JVD
Heart: Regular, Negative S3 positive S1/S2, Negative S4, No murmur
Lungs: CTA b/l, negative wheezes/rales/rhonchi
Abd: Positive BS, NT/ND, neg rebound/rigidity/guarding
Ext: Negative cyanosis/clubbing/edema
Neuro: nonfocal
[2023-08-30 11:00] VITALS: BP 130/64
--- NOTE | 2023-08-30 11:35 | CM ---
Addendum entered by Pretty Moran RN 08/30/23 14:27:
MD entered ordered of discharge.
Spoke with patient he said he was ready for discharge.
Tali will drive him home.
Offered VN he declined need.
PLAN Home no needs
Original Note:
Cardiology involved .
On Lasix IV will transition to Po at dc as per MD note.
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
Declined VN at dc.
PLAN Home no needs
[2023-08-30] MEDS: LANOXIN 62.5 MCG PO (11:36)
--- NOTE | 2023-08-30 12:34 | W.DS.TRANS ---
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
-
Discharge Instructions:
Sleep Apnea Risk Intermediate
Discharge Diagnosis/Procedures Acute on chronic reduced ejection fraction heart
failure
Diet 2 Gram Sodium,Restrict fluids to 48 oz
Specialty Instructions Weigh Daily
Instructions:
Stand-Alone Forms:
Changes to Home Medications: Yes
Discharge Medications:
DC Medications w/original date entered in [employer]
atorvastatin 10 mg tablet 10 mg PO QPM High cholesterol 12/26/19
apixaban 2.5 mg tablet (Eliquis) 2.5 mg PO BID Blood clot prevention/tx 10/22/22
coenzyme Q10 100 mg capsule (Co Q-10) 100 mg PO Q48H Supplement 10/22/22
doxazosin 4 mg tablet 4 mg PO QPM Urinary issue 10/22/22
isosorbide mononitrate 30 mg tablet,extended release 24 hr 30 mg PO DAILY Heart disease/condition 11/15/22
hydralazine 50 mg tablet 75 mg PO BID Blood Pressure 01/08/23
famotidine 20 mg tablet (Pepcid) 20 mg PO DAILY PRN heartburn/gi issues 07/30/23
furosemide 80 mg tablet 80 mg PO DAILY Fluid Retention/Swelling 07/30/23
multivitamin-ferrous fumarate-folic acid 18 mg-400 mcg tablet (Centrum) 1 tab PO DAILY Supplement 07/30/23
azelastine 205.5 mcg (0.15 %) nasal spray (Astepro Allergy) 1 spray intranasal DAILY PRN allergies 08/28/23
empagliflozin 10 mg tablet (Jardiance) 10 mg PO DAILY Heart Failure 08/28/23
polyethylene glycol 3350 17 gram oral powder packet (Miralax) 17 g PO Q48H Constipation 08/28/23
digoxin 125 mcg (0.125 mg) tablet 62.5 mcg PO NOON Heart disease/condition #30 tabs 08/30/23
furosemide 40 mg tablet (Lasix) 40 mg PO .pm Heart Failure #30 tabs 08/30/23
metoprolol succinate 50 mg capsule sprinkle, ext. release 24 hr 50 mg PO BID AT 0800,1600 Heart disease/condition #60 ea 08/30/23
Home Medication Changes
digoxin 125 mcg (0.125 mg) tablet 62.5 mcg PO NOON Heart disease/condition #30 tabs 08/30/23
furosemide 40 mg tablet (Lasix) 40 mg PO .pm Heart Failure #30 tabs 08/30/23
metoprolol succinate 50 mg capsule sprinkle, ext. release 24 hr 50 mg PO BID AT 0800,1600 Heart disease/condition #60 ea 08/30/23
Pending Results: No
Total time spent discharging patient (in min): 37
--- NOTE | 2023-08-30 12:43 | W.DCSUMMARY ---
Discharge Summary
Discharge Data
Date of Admission: 08/28/23
Date of Discharge: 08/30/23
Total time spent discharging patient (in min): 39
-
Pending Results: No
Hospital Course
83-year-old male with a known history of reduced EF heart failure with multiple admissions in relation to exacerbations of CHF in the last year he has underlying cardiomyopathy with an EF last measured between 27 and 41% back in April of this past
year he has underlying chronic kidney disease stage IIIb along with permanent atrial fibrillation on chronic Eliquis and oral anticoagulant therapy and a moderate MR noted by most recent echo he presented again with a symptoms consistent with
dyspnea on exertion cannot lie flat without orthopnea and PND and was admitted with again a proBNP of 14,000 with prior BMPs with prior exacerbations most recently as high as the 18,000 he was admitted placed on IV diuresis furosemide 40 mg twice
daily rate control has been achieved with metoprolol ER 100 mg twice daily. He on this occasion became rather quickly into the euvolemic status after only 36 hours of IV diuresis he admits to poor poor compliance to a salt restriction at home
cardiology on consultation felt that the patient may have some risk benefit in relation to further rate control with the Jose Luis at low-dose and increasing his oral dosing of furosemide to an evening dosing of 40 mg added onto his 80 in the a.m. He
will be continued on nitrates hydralazine he is not a candidate for LAURA in addition ARB's or Entresto and he is now to remain on Jardiance as prior. Given that the patient's presentation was consistent with a permanent atrial fibrillation and
adequate rate control ventricular response this may slow further with the addition of digoxin and metoprolol ER will be reduced from 100 to 50 mg twice a day and will call in a prescription for that during IV diuresis his CKD 3B remained relatively
stable he will have further follow-up with cardiology service he should have a repeat BMP and digoxin level in 1 week's time we called in a prescription for digoxin 62.5 mcg daily along with his metoprolol succinate to his local pharmacy all other
medications unchanged with the addition of also furosemide 40 mg to his 80 mg dosing in the morning
Discharge Plan
-
Patient Disposition: Home (Routine Discharge)
Discharge Diagnosis/Procedures: Acute on chronic reduced ejection fraction heart failure
Diet: 2 Gram Sodium and Restrict fluids to 48 oz
Specialty Instructions: Weigh Daily- Call MD for wt gain/loss 3 lbs overnight/5 lbs in 1 week
Referrals:
Luz Villatoro CRNP [Specified Professional Personl] - 09/07/23 9:00 am (You have a follow up appointment with Dr. Benjamin's CLEANING MACHINE OPERATOR, Luz, at the [place] office. Please call with questions. )
Maile Gutierres, [Family Provider] - in less than 1 week (Needs BMP in 1 week after discharge and digoxin level)
Prescriptions:
New
digoxin 125 mcg (0.125 mg) Tablet
62.5 mcg PO NOON Qty: 30 0RF
metoprolol succinate 50 mg capsule,sprinkle,ER 24hr
50 mg PO BID AT 0800,1600 Qty: 60 0RF
furosemide [Lasix] 40 mg tablet
40 mg PO .pm Qty: 30 0RF
Continued
atorvastatin 10 MG tablet
10 mg PO QPM
doxazosin 4 mg Tablet
4 mg PO QPM
coenzyme Q10 [Co Q-10] 100 mg Capsule
100 mg PO Q48H
Eliquis 2.5 mg Tablet
2.5 mg PO BID
isosorbide mononitrate 30 mg tablet extended release 24 hr
30 mg PO DAILY
hydralazine 50 mg Tablet
75 mg PO BID
famotidine [Pepcid] 20 mg Tablet
20 mg PO DAILY PRN (Reason: heartburn/gi issues)
furosemide 80 mg tablet
80 mg PO DAILY
Centrum 18-400 mg-mcg Tablet
1 tab PO DAILY
Jardiance 10 mg tablet
10 mg PO DAILY
polyethylene glycol 3350 [Miralax] 17 gram powder in packet
17 g PO Q48H
azelastine [Astepro Allergy] 205.5 mcg (0.15 %) [place],Non-Aerosol
1 spray INTRANASAL DAILY PRN (Reason: allergies)
Discontinued
metoprolol succinate 100 mg Tablet Extended Release 24 Hr
100 mg PO BID Qty: 60 0RF
Discharge Orders:
Discharge Patient (As Directed); Ordered 08/30/23
Ordered By: Markell Higgins
Discharge Date and Time
Discharge Date/Time: 08/30/23 16:38
--- NOTE | 2023-09-04 11:04 | W.HF.CON ---
Heart Failure
- LV Function
Left ventricular function study result: LV Ejection fraction >35% - 40%
Ejection Fraction Percentage: 36-41
- ARNI
Patient already on ARNI: No
Heart Failure ARNI Contraindication: Acute Renal Failure
- ACEI/ARB
Patient already on ACEI/ARB: No
Heart Failure ACEI/ARB Contraindication: Acute Renal Failure
- Beta Jes
Patient already on Evidence Based Beta Jes: Yes
- Mineralocorticord Receptor Antagonist
Patient already on MRA: No
Heart Failure MRA Contraindication: Acute Renal Insufficiency
- SGLT-2 Inhibitor
Patient already on SGLT-2 Inhibitor: Yes
- Afib Anticoagulation
Patient already on Anticoagulation for Afib: Yes
- NYHA CHF Classification
NYHA CHF Classification Level: Class III - Symptoms w/ min exertion, interferes w/ nml daily activity
- ACC/AHA Stage
ACC/AHA Stage: Stage C: Symptomatic Heart Failure
--- NOTE | 2023-09-24 12:54 | HFEDUCATE ---
Pt had F/U appt on 09/06/23 at 1:15PM with Dr. Anthony Lao.
== END 2023-08-30 16:38 | disposition home or self-care (01) | DRG 291 ==
LOC: 3 WEST ACU 18:12
PROVIDERS: Emergency Medicine; ADMITTING PHYSICIAN Hospitalist; ATTENDING PHYSICIAN Internal Medicine; CONSULT PHYSICIAN Internal Medicine Cardiovascular Disease; EMERGENCY PHYSICIAN Student in an Organized Health Care Education/Training Program; FAMILY PHYSICIAN Family Medicine
DX: I13.0 Hypertensive heart and chronic kidney disease with heart failure and stage 1 through stage 4 chronic kidney disease, or unspecified chronic kidney disease (principal); I50.23 Acute on chronic systolic (congestive) heart failure; I48.21 Permanent atrial fibrillation; I31.39 Other pericardial effusion (noninflammatory); N18.32 Chronic kidney disease, stage 3b; I08.3 Combined rheumatic disorders of mitral, aortic and tricuspid valves; N40.0 Benign prostatic hyperplasia without lower urinary tract symptoms; I44.7 Left bundle-branch block, unspecified; I42.9 Cardiomyopathy, unspecified; E78.00 Pure hypercholesterolemia, unspecified; K21.9 Gastro-esophageal reflux disease without esophagitis; Z87.01 Personal history of pneumonia (recurrent); Z87.891 Personal history of nicotine dependence; Z79.01 Long term (current) use of anticoagulants; Z79.84 Long term (current) use of oral hypoglycemic drugs
CPT/HCPCS: 71046; 80048; 80053; 83880; 84145; 85025; 85027; 93005; 93306; 96374; 99285

== ENCOUNTER 2024-09-17 11:03 | Inpatient (IN) | payer MEDICARE, SELFPAY ==
[2024-09-17] VITALS (12 sets, daily range): BP systolic 64–169; BP diastolic 6–120; BMI 25.3; BMI 20.9
--- NOTE | 2024-09-17 08:55 | ED.GENMED ---
History of Present Illness
General
Chief Complaint: Breathing Problem
Source: patient
Time Seen by Provider: 09/17/24 08:42
History of Present Illness
History of Present Illness:
84-year-old male presents to the emergency room complaining of fatigue, shortness of breath and feeling he is dehydrated. Patient states he is typically on a dose of Lasix of 80 mg. Recently his partner and because of that he is lost
about 35 pounds. He is concerned the dose of Lasix is too much for him now. However he does admit that he is feeling more short of breath over the past few days. No chest pain. No fever, chills, cough.
Past History
Past History
ED Past Medical History: Arrthythmia (afib), CHF, GERD, HTN, Hypercholesterolemia, Renal failure and Other (PNA, C-diff)
ED Past Surgical History: Appendectomy and Other (Hernia repair)
Patient has exhibited threatening behavior?: No
PSI?: No
Social History
Tobacco: Former smoker
Alcohol: Occasional
Drug: None
Personal:
Living: with family
Employment: Retired
Family History
Family History: Other (Noncontributory)
Phy Exam
Physical Exam
Physical Exam:
General: Awake, Alert, Oriented X3. No acute distress.
Vitals: unremarkable
Head: Atraumatic
Eyes: Pupils equal, EOMI
Throat: Airway intact, no exudates
Neck: Trachea midline
Lungs: Decreased breath sounds right lower lung field, otherwise fairly clear
Heart: Regular rate, no murmurs
Abd: Soft, Nontender, No pulsatile mass
Neuro: Nonfocal
Skin: Warm, dry, no rash
Extremities: pulses equal b/l, no edema
Scores
Heart Failure Risk
Heart Failure Risk Score: Yes
History of Stroke or TIA: No
History of intubation for respiratory distress: No
Heart rate on ED arrival >/= 110: No
SaO2 <90% on arrival on room air: No
HR >/=110 during 3min walk test (or too ill to perform test): Yes
ECG has acute ischemic changes: No
Urea >/=12mmol/L (BUN 33.6mg/dL): Yes
Serum CO2>/=35mmol/L: No
Troponin I or T elevated to [place] Level (0.4mg/dL): No
NT-proBNP >/=5,000ng/L (5,000pg/ml): Yes
HF Risk Score: 4
Admission Status: HIGH RISK 26.1% Consider SNF treatment or admission to hospital
Course
Orders/Labs/Results
Orders:
Orders
09/17/24 06:40
Electrocardiogram (*1) Urgent
Reason for Study: Shortness of Breath
09/17/24 06:41
EKG- Treatment ONCE
09/17/24 08:54
CR Chest - 2 Views Urgent
Comment:
Reason For Exam: shortness of breath
09/17/24 08:56
CMP [Comprehensive Metabolic Panel] Urgent
Complete Blood Count/With Diff Urgent
Digoxin Urgent
Comment: ADD ON
NT-proBNP Urgent
Troponin I Urgent
09/17/24 Lunch
Cholesterol Lowering
At Your Request: Full Participation
Does patient need a safe tray?: No
Fluid Restriction: 1500 mL/day (50 oz)
Cholesterol Lowering: Sodium, 2 Gram
09/17/24 10:16
CT Chest W/o Iv Contrast Urgent
Comment:
Reason For Exam: pleural effusion, weight loss
09/17/24 10:20
Furosemide [Lasix] 40 mg IV NOW STA
09/17/24 10:29
Admit/Transfer Patient As Directed
Co-Sign Provider:
Level of Care: Inpatient admission
Assign to:: Telemetry
Physician / Group: Dr. Tapia
Diagnosis: CHF
Reason for Telemetry: Acute Heart Failure
Date to Stop Telemetry: 09/20/24
Time to Stop Telemetry: 11:00
Reason for Hospitalization: CHF. Right pleural effusion
Expected length of stay greater than two midnights?: Yes
ELOS- Estimated Length of Stay in days: 2
I certify the patient meets the requirements for IP care: Yes
09/17/24 10:30
Code Status As Directed
Resuscitation Status: Full Code
PRN Pain Medication Management As Directed
May give lesser potent ordered pain med per pt: Yes
preference::
Protocol:: Medication orders for pain may be administered in a
manner that supports deferring to patient preference
when the pt is:
- Requesting an ordered lesser potent pain medication.
Least to most potent pain medications are defined
as: acetaminophen < NSAID < tramadol < opioids
(morphine, oxycodone, hydromorphone).
- Requesting a lesser dose of the same medication IF
ORDERED.
- Requesting a less intrusive route of administration
if both routes are prescribed by the provider (PO <
IV).
09/17/24 10:38
CARDIOLOGY CONSULT Routine
Consulting Provider: Jong Victor
Was physician already notified: Yes
Reason for consult: chf eval
09/17/24 10:39
IRAD CONSULT Routine
Consulting Provider: Manuel Hoffman
Was physician already notified: Yes
Reason for Consult/Procedure: Right thoracentesis
Acknowledgement that appropriate orders are entered: Yes
IRAD Cytology Routine
Date Specimen was Collected: 09/17/24
Time Specimen was Collected: 13:30
Source: Pleural Fluid, Right
Clinical Impression: patient with sob and r pleural efussion
Submitting Physician: Salvador MORSE
Comment: Right Thoracentesis
09/17/24 13:00
PT/INR [Prothrombin Time] Urgent
09/17/24 13:07
Bisacodyl [Dulcolax] 10 mg RECTAL [id number] PRN
Docusate W/Senna [Senokot-S] 1 tablet PO BIDPRN PRN
Polyethylene Glycol Powder [Miralax] 17 grams PO DAILYPRN PRN
09/17/24 13:07
Activity As Directed
Activity Level: Out of Bed-Early Mobility
Pneumatic Compression Sleeves As Directed
Type: Knee high
Vital Signs As Directed
Frequency: Per unit guidelines
DX Deep Vein Thrombosis Video Routine
09/17/24 13:43
Body Fluid Cell Count Routine
What is the Body Fluid: pleural fluid
Date Specimen was Collected: 09/17/24
Time Specimen was Collected: 13:30
Comment: Right Thoracentesis
Body Fluid Protein Routine
Fluid Source: Pleural
Date Specimen was Collected: 09/17/24
Time Specimen was Collected: 13:30
Comment: Right Thoracentesis
Body Fluid pH Routine
Fluid Source: Pleural
Date Specimen was Collected: 09/17/24
Time Specimen was Collected: 13:30
Comment: Right Thoracentesis
Fluid Culture with Gram Stain Routine
FESTUS Source: Pleural Fluid
Specimen Description:
Date Specimen was Collected: 09/17/24
Time Specimen was Collected: 13:30
Comment: Right Thoracentesis
09/18/24 06:00
Basic Metabolic Panel IN AM
Complete Blood Count/With Diff IN AM
09/20/24 11:00
DC Protocol for Telemetry ONCE
Abnormal Lab Results
09/17/24
08:56
RBC 6.22 H 10^6/uL
(4.70-6.10)
MCH 25.7 L pg
(27.0-31.0)
MCHC 31.4 L g/dL
(33.0-37.0)
RDW 17.3 H %
(11.5-14.5)
Plt Count 429 H 10^3/uL
(130-400)
Absolute Lymphs (auto) 0.5 L 10^3/uL
(1.2-3.4)
Neutrophils % 84.4 H %
(42.2-75.2)
Lymphocytes % 6.1 L %
(20.5-51.1)
Carbon Dioxide 31 H mmol/L
(22-30)
BUN 54 H mg/dl
(9-20)
Creatinine 1.8 H mg/dL
(0.7-1.3)
Glucose 102 H mg/dl
(70-99)
Total Bilirubin 1.5 H mg/dl
(0.2-1.3)
Digoxin < 0.4 L ng/ml
(0.8-2.0)
09/17/24 08:56
09/17/24 08:56
Vital Signs
Initial and Last Documented VS:
Initial Vital Signs
Temp Pulse Resp BP Pulse Ox
97.5 F 62 24 136/56 95
09/17/24 06:41 09/17/24 06:41 09/17/24 06:41 09/17/24 06:41 09/17/24 06:41
Last Documented Vital Signs
Temp Pulse Resp BP Pulse Ox
98.0 F 87 22 148/69 95
09/17/24 14:30 09/17/24 14:30 09/17/24 14:30 09/17/24 14:30 09/17/24 14:30
MDM/Problems Addressed
Differential Diagnosis Includes:
Congestive heart failure, pneumonia, pleural effusion
MDM/Problems Addressed:
Patient presents with increased shortness of breath. He has a moderate-sized right pleural effusion. This certainly could be related to heart failure but the patient's imaging does not show clear pulmonary edema. He does not have significant
peripheral edema. Overall his physical exam is not suggestive of significant fluid overload. Alternative reasons for pleural effusion need to be considered. I feel the patient to be hospitalized for thoracentesis. CT of the chest ordered.
*Radiology
Radiology exam reviewed: preliminary read by ED provider (Moderate size right pleural effusion)
*Pulse Oximetry
Patient hypoxic: yes
*EKG
Interpreted by ED Provider?: Yes
Heart Rate: 69
Rate: normal
Rhythm: a-fib
Ischemia: non-specific ST changes
*Steel Die Printer Interpretation
Rate: normal
Interpretation: abnormal
Heart Rate: 69
Rhythm: a-fib
*Critical Care Note
Total Time (30-74mins, 75-104mins- exclusive of procedures): Not Applicable
ED Attending Note
-
Portions of this chart may have been created with voice recognition software.� Occasional wrong word or��sound alike� substitutions may have occurred due to the inherent limitations of voice recognition software.
Discharge Plan
Departure
Patient Disposition: Admit
Date of Disposition: 09/17/24
Time of Disposition: 10:29
Admit to: Med/Surg
Presentation/result/management discussed w/ accepting MD/DO: Hospitalist
Condition: Fair
Discharge Problem:
Pleural effusion on right, CHF (congestive heart failure)
Interventions
Interventions:
*Risk Screen - Suicide Last Done: 09/17/24 06:36
*General Assessment Last Done: 09/17/24 08:49
*Neglect/Abuse Screening Last Done: 09/17/24 06:35
ED- Fall Risk Assessment Last Done: 09/17/24 08:49
*ED COVID-19 Vaccine History Last Done: 09/17/24 08:49
*Nursing Disposition Last Done: 09/17/24 14:05
ED- Cardiac Assessment Last Done: 09/17/24 08:49
ED- Pulmonary Assessment Last Done: 09/17/24 08:49
Discharge Date and Time
Discharge Date/Time: 09/17/24 14:05
[2024-09-17 09:11] LABS: % Basophils 1.1 % (0-2); % Eosinophils 0.7 % (0-6); % Immature Granulocytes 0.3 % (0-0.5); % Lymphocytes 6.1 % (20.5-51.1); % Monocytes 7.4 % (1.7-9.3); % Neutrophils 84.4 % (42.2-75.2); Absolute Basophils 0.1 10^3/uL (0-0.2); Absolute Eosinophils 0.1 10^3/uL (0-0.7); Absolute Lymphocytes 0.5 10^3/uL (1.2-3.4); Absolute Monocytes 0.6 10^3/uL (0.1-0.6); Absolute Neutrophils 6.4 10^3/uL (1.4-6.5); Hematocrit 50.9 % (39.0-52.0); Mean Corp Hgb Conc. 31.4 g/dL (33.0-37.0); Mean Corpuscular Hgb 25.7 pg (27.0-31.0); Mean Corpuscular Volume 81.8 fL (80.0-94.0); Mean Platelet Volume 9.4 fL (7.4-10.4); Nucleated Red Blood Cells % 0 % (-); Platelet Count 429 10^3/uL (130-400); Red Blood Cell Count 6.22 10^6/uL (4.70-6.10); Red Cell Dist. Width 17.3 % (11.5-14.5); White Blood Cell Count 7.6 10^3/uL (4.8-10.8)
[2024-09-17 09:29] LABS: ALT (SGPT) 20 U/L (0-50); AST (SGOT) 26 U/L (17-59); Albumin 4.2 g/dl (3.5-5.0); Alkaline Phosphatase 86 U/L (38-126); Blood Urea Nitrogen 54 mg/dl (9-20); Calcium 9.2 mg/dl (8.4-10.2); Carbon Dioxide 31 mmol/L (22-30); Chloride 100 mmol/L (98-107); Estimated Creatinine Clearance 32 ml/min; Glucose 102 mg/dl (70-99); Potassium 4.4 mmol/L (3.5-5.1); Sodium 141 mmol/L (135-145); Total Bilirubin 1.5 mg/dl (0.2-1.3); Total Protein 6.8 g/dl (6.3-8.2); eGFR 36.89
[2024-09-17 09:40] LABS: NT-proBNP 9140 pg/ml; Troponin I 0.015 ng/ml
--- NOTE | 2024-09-17 10:32 | HPS.HSE ---
Family Physician
-
Family Physician: Maile Gutierres
Chief Complaint
-
Shortness of breath
History of Present Illness
Patient 84 years old male with history of CHF, A-fib, CKD, hypertension, COPD, presented to the hospital shortness of breath. Patient has been experiencing shortness of breath over the last few days and has been progressively getting worse. He
denies any chest pain. He is consistent taking his oral diuretics. He also is consistent with his oral anticoagulant. He has not taken his medications today though. He denies any fevers or chills. He denies any cough. He denies chest pain. In
the ER chest x-ray shows moderate right pleural effusion and CT scan of the chest shows effusion and also emphysema changes. He is BNP noticed to be elevated although less than before. His creatinine 1.8 close to his baseline. He was referred to
hospitalist for further evaluation.
Medical History
Past Medical History
Past Medical History: Reports Other (atrial fibrillation, CHF, hypertension, hyperlipidemia, CKD, GERD, C. difficile)
Past Surgical History: Reports None
Social History
Tobacco: Non-smoker
Alcohol: Occasional
Drug: None
Family History
Family History: Not pertinent
Allergies / Home Medications
Allergies reflects when Allergies were last updated in [employer].
Home Medications with original date entered in [employer]
Allergy/Medication List:
Allergies
Allergy/AdvReac Type Severity Reaction Status Date / Time
No Known Allergies Allergy Verified 08/28/23 15:58
Home Medications
atorvastatin 10 mg tablet 10 mg PO QPM High cholesterol 12/26/19
apixaban 2.5 mg tablet (Eliquis) 2.5 mg PO BID Blood clot prevention/tx 10/22/22
coenzyme Q10 100 mg capsule (Co Q-10) 100 mg PO Q48H Supplement 10/22/22
doxazosin 4 mg tablet 4 mg PO QPM Urinary issue 04/02/23
isosorbide mononitrate 30 mg tablet,extended release 24 hr 30 mg PO DAILY Heart disease/condition 11/15/22
hydralazine 50 mg tablet 75 mg PO BID Blood Pressure 01/08/23
famotidine 20 mg tablet (Pepcid) 20 mg PO DAILY PRN heartburn/gi issues 07/30/23
furosemide 80 mg tablet 80 mg PO DAILY Fluid Retention/Swelling 07/30/23
multivitamin-ferrous fumarate-folic acid 18 mg-400 mcg tablet (Centrum) 1 tab PO DAILY Supplement 07/30/23
azelastine 205.5 mcg (0.15 %) nasal spray (Astepro Allergy) 1 spray intranasal DAILY PRN allergies 08/28/23
empagliflozin 10 mg tablet (Jardiance) 10 mg PO DAILY Heart Failure 08/28/23
polyethylene glycol 3350 17 gram oral powder packet (Miralax) 17 g PO Q48H Constipation 08/28/23
digoxin 125 mcg (0.125 mg) tablet 62.5 mcg (1/2 x 125 mcg (0.125 mg)) PO NOON Heart disease/condition #30 tabs 08/30/23
furosemide 40 mg tablet (Lasix) 40 mg PO .pm Heart Failure #30 tabs 08/30/23
metoprolol succinate 50 mg capsule sprinkle, ext. release 24 hr 50 mg PO BID AT 0800,1600 Heart disease/condition #60 ea 08/30/23
Review of Systems
-
A 12 point ROS was completed and negative except as noted: Yes
Physical Exam
Vital Signs
Vital Signs
Temp Pulse Resp BP Pulse Ox
97.5 F 77 20 142/63 97
09/17/24 06:41 09/17/24 10:02 09/17/24 09:30 09/17/24 09:00 09/17/24 10:02
Physical exam:
General: Acutely ill
HEENT: Normocephalic, Atraumatic and Moist Mucous Membranes
Respiratory: Decreased breath sounds on the right, coarse crackles in the bases. No wheezes
Cardiac: Regular Rhythm and S1/S2
GI: Soft, Nontender and Nondistended
Musculoskeletal: No Clubbing, No Cyanosis and No Edema
Neuro: Awake, Alert and Oriented
Psych: Calm
Physical Exam
General: Other
Laboratory Results
-
09/17/24 08:56
09/17/24 08:56
Laboratory Results
Total Bilirubin 1.5 mg/dl (0.2-1.3) H 09/17/24 08:56
AST 26 U/L (17-59) 09/17/24 08:56
ALT 20 U/L (0-50) 09/17/24 08:56
Alkaline Phosphatase 86 U/L (38-126) 09/17/24 08:56
Troponin I 0.015 ng/ml 09/17/24 08:56
Data Reviewed
-
Diagnostic Radiology: Image Personally Visualized and interpreted
Lab Data: Labs Reviewed by me
Impression/Plan
-
IMPRESSION:
Patient 84 years old male with multiple comorbidities came into the hospital with dyspnea and right pleural effusion. Concerns for acute on chronic diastolic congestive heart failure among other etiologies. Given acute presentation and multiple
comorbidities patient is at increased risk of morbidity mortality and therefore needs to be in the hospital for further evaluation and management.
PLAN:
Acute respiratory insufficiency:
Oxygen supplement
Seen chest x-ray
Monitor respiratory status closely
Acute on chronic systolic congestive heart failure:
IV Lasix given in the ED
Reviewed last echocardiogram back in August 2023 EF 36 to 41%
Will redose diuretics as needed since I am not certain heart failure send only issue here.
Cardiology consult-discussed with cardiology via [place]
Continue GDMT
Right pleural effusion:
IR consult for right thoracentesis-discussed with IR today
Hold anticoagulation and resume after procedure
Cardiac valvulopathy:
Mild to moderate aortic regurgitation, tricuspid regurgitation, and mitral regurgitation.
Chronic kidney disease:
Avoid nephrotoxic
Monitor renal function
Permanent atrial fibrillation:
Cardiac monitoring
Anticoagulation on Eliquis 2.5 mg p.o. twice a day
Rate control with metoprolol succinate 100 mg twice a day and digoxin 62.5 mcg p.o. daily
Hypertension:
Will resume antihypertensives
Hyperlipidemia:
Continue statins
DVT prophylaxis:
Eliquis
CODE STATUS:
DNR
Time spent 75 minutes
[2024-09-17] MEDS: LASIX 40 MG IV (10:42)
--- NOTE | 2024-09-17 10:50 | CON.CAR ---
Addendum entered and electronically signed by Angel Sheldon MD 09/17/24 14:45:
I saw and examined the patient.
The Community [employer] Member's note was reviewed and I agree with the note.
Comment:
GEN: No distress, awake, Ox3
HEENT: supple, anicteric, mmm
LUNGS: dec Bs R base, + rhochi
CV: Irreg, S1/S2, / syst LSB, no gallop
ABD: soft, BS+, NT/ND
EXT: No edema
NEURO: Gross non-focal
SKIN: No rash
Plan:
84-year-old male with past medical history of chronic heart failure with reduced ejection fraction, permanent atrial fibrillation, CKD 3, hypertension, and COPD/emphysema presents with orthopnea, shortness of breath, fatigue, and dry mouth. He
admits he has been drinking more water over the past several nights. He had increased nocturia. He denies any chest pains. He has noticed also increased dyspnea on exertion.
Chest x-ray today reveals a moderate right sized pleural effusion. CT scan reveals advanced emphysema.
He has mild acute heart failure with reduced ejection fraction.
Will give Lasix 60 mg IV times now. Would follow volume status and consider thoracentesis.
Follow creatinine closely at 1.8. proBNP is elevated at 9000, but this is improved from last admission. He has had multiple admissions in 2023 for congestive heart failure.
Continue Eliquis 2.5 mg p.o. twice daily. Continue a rate control strategy for A-fib with digoxin and metoprolol.
Continue Imdur/hydralazine/Jardience
I do suspect that a significant amount of his dyspnea on exertion is also due to his advanced COPD..
Original Note:
Consultation
Consultation Request
Date/Time Consultation Requested: 09/17/24
Date/Time Consultation Performed: 09/17/24
Requesting Provider: Dr. Tapia
Performing Provider: Dr. Sheldon
Reason for Consultation: SOB, CKD
Medical History
-
History of Present Illness:
Patient came to [facility] today with a couple of nights worth of dry mouth that has made it hard for him to sleep and in the ER he was found to have a moderate sized right-sided pleural effusion and so cardiology has been consulted. Patient had a series
of admissions for HF in 2022, but after an admission to 08/2023 he has not required readmission. In 2022 his paroxysmal Afib became more permanent, but HRs were controlled with Toprol XL 100 mg BID and digoxin. Patient also had a slight drop in EF
to about 40% in 10/23/22. Then patient had an admission 03/2023 for spontaneous left hydropneumothorax with exudative fluid on cytology and he was managed with a chest tube and antibiotics, his EF dropped to 25-30% at that time. During his last
admission 08/2023 his EF was a bit better at 35-40%. Patient says that in spring his long-time partner, Antonietta, unexpectedly and he lost about 30 lbs. Patient has continued to follow with Dr. Benjamin in the office and reports
exercising by climbing 300 steps a day. Patient feels like it has been harder for him to climb steps in the last 2 weeks and he reports SOB, but no chest pain. He denies weight gain or edema. Patient wonders if he is dehydrated because he continues
on Lasix 80 mg daily despite the 30 lb weight loss over the last year. He thought this was especially true in the last 2 nights because he feels like his mouth has been so dry that it is extending into his chest and he cannot sleep at night without
drinking large amounts of water which leads to increased nocturia and because this has happened for the last 2 nights he came to the hospital today. On CXR he was found to have a moderate-sized right sided pleural effusion and is being admitted.
PMH:
Chronic HFrEF
Cardiomyopathy, EF 27-41% by echo 05/18/23
CKD 3b
Permanent Afib
Chronic Eliquis OAC
h/o spontaneous left-sided hydropneumothorax with exudative fluid on cytology managed with chest tube and antibiotics 03/2023
HTN
Mild AR
Mod MR
Chronic LBBB
Hyperlipidemia
Palpable abdominal aorta -normal aortic ultrasound 11/2022
h/o C.diff
Past Medical History
Past Medical History: Other (in HPI)
Past Surgical History: Other (in HPI)
Social History
Tobacco: Former Smoker
Alcohol: Occasional
Drug: None
Personal: Partner
Living: Alone (he's been living alone since his long-term partner, Antonietta, last year)
Family History
Family History: CAD and Hypertension
Allergies / Home Medications
Allergy/AdvReac Type Severity Reaction Status Date / Time
No Known Allergies Allergy Verified 08/28/23 15:58
�Medication �Instructions �Recorded �Confirmed �Type
atorvastatin 10 mg tablet 10 mg PO QPM High cholesterol 12/26/19 08/28/23 History
apixaban 2.5 mg tablet (Eliquis) 2.5 mg PO BID Blood clot 10/22/22 08/28/23 History
prevention/tx
coenzyme Q10 100 mg capsule (Co 100 mg PO Q48H Supplement 10/22/22 08/28/23 History
Q-10)
doxazosin 4 mg tablet 4 mg PO QPM Urinary issue 10/22/22 08/28/23 History
isosorbide mononitrate 30 mg 30 mg PO DAILY Heart 11/15/22 08/28/23 History
tablet,extended release 24 hr disease/condition
hydralazine 50 mg tablet 75 mg PO BID Blood Pressure 01/08/23 08/28/23 History
famotidine 20 mg tablet (Pepcid) 20 mg PO DAILY PRN heartburn/gi 07/30/23 08/28/23 History
issues
furosemide 80 mg tablet 80 mg PO DAILY Fluid 07/30/23 08/28/23 History
Retention/Swelling
multivitamin-ferrous 1 tab PO DAILY Supplement 07/30/23 08/28/23 History
fumarate-folic acid 18 mg-400 mcg
tablet (Centrum)
azelastine 205.5 mcg (0.15 %) 1 spray intranasal DAILY PRN 08/28/23 08/28/23 History
nasal spray (Astepro Allergy) allergies
empagliflozin 10 mg tablet 10 mg PO DAILY Heart Failure 08/28/23 08/28/23 History
(Jardiance)
polyethylene glycol 3350 17 gram 17 g PO Q48H Constipation 08/28/23 08/28/23 History
oral powder packet (Miralax)
digoxin 125 mcg (0.125 mg) tablet 62.5 mcg (1/2 x 125 mcg (0.125 08/30/23 Rx
mg)) PO NOON Heart
disease/condition #30 tabs
furosemide 40 mg tablet (Lasix) 40 mg PO .pm Heart Failure #30 tabs 08/30/23 Rx
metoprolol succinate 50 mg capsule 50 mg PO BID AT 0800,1600 Heart 08/30/23 Rx
sprinkle, ext. release 24 hr disease/condition #60 ea
Review of Systems
-
History Source: Patient
All other systems: Negative unless noted
Physical Exam
Vital Signs
Temp Pulse Resp BP Pulse Ox
97.5 F 66 20 140/51 97
09/17/24 06:41 09/17/24 10:42 09/17/24 09:30 09/17/24 10:42 09/17/24 10:02
GEN: NAD, AAO x3
HEENT: EOMI, MMM
LUNGS: RA. Decreased BS right worse than left base
CV: Afib on tele. Irregularly irregular, S1/S2, no murmur
ABD: soft, BS+, NT, ND
EXT: No edema B/L LE. No clubbing, cyanosis or lesions B/L
NEURO: Gross non-focal
SKIN: Warm, dry and pink. No rash
Lab Results
09/17/24 08:56
09/17/24 08:56
Troponin I 0.015 ng/ml 09/17/24 08:56
Pds-W-Rsjjauehjbd Pept 9140 pg/ml 09/17/24 08:56
Impression / Plan
-
PCP: Dr. Gutierres
Cardiology: Dr. SOCORRO Benjamin
Nephrology: Dr. Lao
Impression:�
Admitted with right-sided pleural effusion and SOB 09/17/24
Right-sided pleural effusion
Acute on chronic HFrEF
Cardiomyopathy, EF 27-41% by echo 05/18/23
CKD 3b
Permanent Afib
Chronic Eliquis OAC
h/o spontaneous left-sided hydropneumothorax with exudative fluid on cytology managed with chest tube and antibiotics 03/2023
HTN
Mild AR
Mod MR
Chronic LBBB
Hyperlipidemia
Palpable abdominal aorta -normal aortic ultrasound 11/2022
h/o C.diff
Lexiscan mibi 01/10/23: No evidence of ischemia
Echo 04/11/21: EF 45-50%, mild conc LVH, mild MR, mild aortic regurgitation
Echo 10/23/22: EF 40%, moderate MR, mild aortic regurgitation, mod TR with PASP 49 mmHg
Echo 04/16/23: Ejection fraction 25 to 30%, moderate MR, aortic sclerosis with mild AI, pleural effusions
Echo 05/18/23: EF 27% by volumetric assessment and 41% by Nunez
Echo 08/29/2023: EF 36-41%, stage I diastolic dysfunction, mild-mod MR, mild-mod AR, mild-mod TR, estimated PAP 60-70 mmHg
Plan:
-Patient came to [facility] today with a couple of nights worth of dry mouth that has made it hard for him to sleep and in the ER he was found to have a moderate sized right-sided pleural effusion and so cardiology has been consulted. Patient had a series
of admissions for HF in 2022, but after an admission to 08/2023 he has not required readmission. In 2022 his paroxysmal Afib became more permanent, but HRs were controlled with Toprol XL 100 mg BID and digoxin. Patient also had a slight drop in EF
to about 40% in 10/23/22. Then patient had an admission 03/2023 for spontaneous left hydropneumothorax with exudative fluid on cytology and he was managed with a chest tube and antibiotics, his EF dropped to 25-30% at that time. During his last
admission 08/2023 his EF was a bit better at 35-40%. Patient says that in spring his long-time partner, Antonietta, unexpectedly and he lost about 30 lbs. Patient has continued to follow with Dr. Benjamin in the office and reports
exercising by climbing 300 steps a day. Patient feels like it has been harder for him to climb steps in the last 2 weeks and he reports SOB, but no chest pain. He denies weight gain or edema. Patient wonders if he is dehydrated because he continues
on Lasix 80 mg daily despite the 30 lb weight loss over the last year. He thought this was especially true in the last 2 nights because he feels like his mouth has been so dry that it is extending into his chest and he cannot sleep at night without
drinking large amounts of water which leads to increased nocturia and because this has happened for the last 2 nights he came to the hospital today. On CXR he was found to have a moderate-sized right sided pleural effusion and is being admitted.
-ECG reviewed by me shows Afib with HR 69 and no acute ischemic changes.
-CXR and CT chest reports reviewed by me. Patient with a right sided pleural effusion. Patient has a history of a left sided hydropneumothorax that was managed with chest tube and eventually antibiotics when cytology indicated an exudative process.
He has not previously had right-sided pleural effusion and has not previously had right sided thoracentesis.
-Cre today is 1.8 with a baseline creatinine of 1.8-2.2. He has known CKD 3B and follows with Dr. Lao in the office.
-Patient was given Lasix 20 mg IV x 1 in the ER. Patient was taking Lasix 80 mg PO daily prior to admission. Will give an additional Lasix 60 mg IV x 1 now.
-Follow BMP in the a.m.
-Recommend recheck echo. EF was 35 to 40% with mild to moderate MR and mild to moderate aortic insufficiency by last echo 08/29/2023.
-Continue Toprol XL 100 mg twice daily
-Patient has known CKD 3b and is not on LAURA/ARB/aldosterone antagonist, but does take a regimen of nitrates and hydralazine. Patient missed his usual doses of Imdur ER 30 mg daily and hydralazine 50 mg twice daily today and he is HTN in the ER now
also will order.
-Patient cannot afford SGLT-2
-Patient took his usual dose of Cardura 4 mg at bedtime last night
-Patient takes digoxin 0.625 mg daily. Check digoxin level, ordered by me.
-Afib is permanent. Cont Eliquis 2.5 mg BID. Will start low dose digoxin and lower dose of Toprol to 75mg BID. Continue to follow HRs.
[2024-09-17 13:17] LABS: PT 16.7 Sec (11.4-14.6)
[2024-09-17 13:38] LABS: Digoxin < 0.4 ng/ml (0.8-2.0)
--- NOTE | 2024-09-17 14:01 | W.PN.UPDATE ---
Update Note
Progress Note Update
84 yo male s/p IR thoracentesis. We drained 900 cc of serosanguinous fluid. P\\ost procedure CXR shows basilar trapped lung. No further intervention needed at this time.
[2024-09-17 14:07] LABS: Body Fluid pH 7.39
[2024-09-17 14:11] LABS: Body Fluid Mononuclear 91.1 %; Body Fluid Polymorphonuclear 8.9 %; Body Fluid WBC 609 /CUMM
[2024-09-17 14:12] LABS: Body Fluid Second Tech EF
[2024-09-17 14:31] LABS: Body Fluid Protein 2.4 g/dl
[2024-09-17] MEDS: LASIX 60 MG IV (14:52)
[2024-09-17] MEDS: IMDUR (EXTENDED RELEASE) 30 MG PO (14:52)
[2024-09-17] MEDS: APRESOLINE 50 MG PO ×2 (14:52→19:57)
[2024-09-17] MEDS: TOPROL XL 100 MG PO ×2 (14:52→19:56)
[2024-09-17] MEDS: FARXIGA 10 MG PO (14:53)
--- NOTE | 2024-09-17 16:16 | PTCARENOTE ---
Patient admitted from ER into room 404-01. Oriented to room, use of call vallejo and TV/bed controls. Patient verbalizes understanding of all teaching. BP elevated. Patient given all BP medications ordered. Patient with thoracentesis site - CDI. Denies
pain or other complaints at this time.
[2024-09-17] MEDS: CARDURA 4 MG PO (17:03)
[2024-09-17] MEDS: LIPITOR 10 MG PO (17:04)
[2024-09-17] MEDS: ELIQUIS 2.5 MG PO (19:56)
[2024-09-18] VITALS (7 sets, daily range): BP systolic 93–163; BP diastolic 57–75; BMI 20.7
[2024-09-18 07:34] LABS: % Basophils 1.1 % (0-2); % Eosinophils 1.5 % (0-6); % Immature Granulocytes 0.5 % (0-0.5); % Lymphocytes 7.8 % (20.5-51.1); % Monocytes 8.2 % (1.7-9.3); % Neutrophils 80.9 % (42.2-75.2); Absolute Basophils 0.1 10^3/uL (0-0.2); Absolute Eosinophils 0.1 10^3/uL (0-0.7); Absolute Lymphocytes 0.6 10^3/uL (1.2-3.4); Absolute Monocytes 0.7 10^3/uL (0.1-0.6); Absolute Neutrophils 6.4 10^3/uL (1.4-6.5); Hematocrit 52.6 % (39.0-52.0); Hemoglobin 16.6 g/dL (13.0-18.0); Mean Corp Hgb Conc. 31.6 g/dL (33.0-37.0); Mean Corpuscular Hgb 25.8 pg (27.0-31.0); Mean Corpuscular Volume 81.8 fL (80.0-94.0); Nucleated Red Blood Cells % 0 % (-); Platelet Count 439 10^3/uL (130-400); Red Blood Cell Count 6.43 10^6/uL (4.70-6.10); Red Cell Dist. Width 17.5 % (11.5-14.5); White Blood Cell Count 7.9 10^3/uL (4.8-10.8)
[2024-09-18] MEDS: ELIQUIS 2.5 MG PO ×2 (08:30→19:58)
[2024-09-18] MEDS: APRESOLINE 50 MG PO ×2 (08:30→19:58)
[2024-09-18] MEDS: IMDUR (EXTENDED RELEASE) 30 MG PO (08:30)
[2024-09-18] MEDS: FARXIGA 10 MG PO (08:30)
[2024-09-18] MEDS: TOPROL XL 100 MG PO ×2 (08:30→19:57)
[2024-09-18 08:52] LABS: Blood Urea Nitrogen 58 mg/dl (9-20); Calcium 9.3 mg/dl (8.4-10.2); Carbon Dioxide 31 mmol/L (22-30); Chloride 101 mmol/L (98-107); Estimated Creatinine Clearance 29 ml/min; Glucose 92 mg/dl (70-99); Potassium 4.6 mmol/L (3.5-5.1); Sodium 143 mmol/L (135-145); eGFR 36.89
--- NOTE | 2024-09-18 09:12 | W.PN.HOSP.TC ---
Today's Communication/Plan
-
Repeat chest x-ray. Continue GDMT. PT OT eval
Assessment / Plan
Assessment / Plan
Physical exam:
General: Acutely ill
HEENT: Normocephalic, Atraumatic and Moist Mucous Membranes
Respiratory: Clear to auscultation bilateral. No wheezes, no rhonchi
Cardiac: Regular Rhythm and S1/S2
GI: Soft, Nontender and Nondistended
Musculoskeletal: No Clubbing, No Cyanosis and No Edema
Neuro: Awake, Alert and Oriented
Psych: Calm
A/P:
Acute respiratory insufficiency:
Oxygen supplement
Seen chest x-ray
Repeat chest x-ray in a.m.
Monitor respiratory status closely
Acute on chronic systolic congestive heart failure:
IV Lasix given in the ED
Will defer diuretics to cardiology
Reviewed last echocardiogram back in August 2023 EF 36 to 41%
Cardiology consult appreciated
Continue GDMT including hydralazine and nitrate, beta-blockers, SGT inhibitor
Right pleural effusion:
s/p thoracentesis on 09/17
Cardiac valvulopathy:
Mild to moderate aortic regurgitation, tricuspid regurgitation, and mitral regurgitation.
Chronic kidney disease:
Avoid nephrotoxic
Monitor renal function
Permanent atrial fibrillation:
Cardiac monitoring
Anticoagulation on Eliquis 2.5 mg p.o. twice a day
Rate control with metoprolol succinate 100 mg twice a day and digoxin 62.5 mcg p.o. daily
Hypertension:
Continue hydralazine, Imdur, metoprolol succinate
Hyperlipidemia:
Continue statins
DVT prophylaxis:
Eliquis
CODE STATUS:
DNR
Anticipated Discharge: 24 - 48 hours
Subjective/Interval History
-
Date of Service: September 18, 2024
Patient feels better today. Less shortness of breath. No chest pain
Objective Data
-
Labs:
Laboratory Results
09/18/24
06:49
WBC 7.9
Hgb 16.6
Hct 52.6 H
Plt Count 439 H
Sodium 143
Potassium 4.6
Chloride 101
Carbon Dioxide 31 H
BUN 58 H
Creatinine 1.8 H
Glucose 92
Calcium 9.3
Vital Signs:
Vital Signs
Temp Pulse Resp BP Pulse Ox
97.6 F 72 16 163/71 94
09/18/24 07:30 09/18/24 08:30 09/18/24 07:30 09/18/24 08:30 09/18/24 07:30
I&O
09/17/24 09/18/24 09/19/24
06:59 06:59 06:59
Intake Total 240 / 240
Balance 240 / 240
[2024-09-18] MEDS: LANOXIN 62.5 MCG PO (11:24)
--- NOTE | 2024-09-18 13:04 | CM ---
CM reviewed chart, patient seen bedside, initial assessment completed. Patient resides independently in an apartment at [facility] with elevator access, patient has a rollator if needed, denies VN or SNF. Patient confirms PCP Angel Gutierres,
pharmacy [facility], confirms prescription coverage. Patient denies needs from CM at this time. CM will continue to follow for all discharge planning needs.
Plan; home no needs likely.
[2024-09-18] MEDS: LIPITOR 10 MG PO (17:06)
[2024-09-18] MEDS: CARDURA 4 MG PO (17:06)
[2024-09-19] VITALS (7 sets, daily range): BP systolic 126–152; BP diastolic 54–74; O2SAT 98; BMI 20.6
[2024-09-19] MEDS: TOPROL XL 100 MG PO ×2 (07:45→20:48)
[2024-09-19] MEDS: IMDUR (EXTENDED RELEASE) 30 MG PO (07:45)
[2024-09-19] MEDS: FARXIGA 10 MG PO (07:45)
[2024-09-19] MEDS: APRESOLINE 50 MG PO ×2 (07:46→20:48)
[2024-09-19] MEDS: ELIQUIS 2.5 MG PO ×2 (07:46→20:47)
[2024-09-19 08:38] LABS: Blood Urea Nitrogen 61 mg/dl (9-20); Calcium 9.6 mg/dl (8.4-10.2); Carbon Dioxide 31 mmol/L (22-30); Chloride 102 mmol/L (98-107); Estimated Creatinine Clearance 30 ml/min; Glucose 93 mg/dl (70-99); Potassium 4.3 mmol/L (3.5-5.1); Sodium 142 mmol/L (135-145); eGFR 39.51
--- NOTE | 2024-09-19 09:03 | W.PN.HOSP.TC ---
Addendum entered and electronically signed by Milad Tapia MD 09/19/24 14:10:
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
Original Note:
Today's Communication/Plan
-
Chest x-ray. Pulmonary and CT eval.
Assessment / Plan
Assessment / Plan
Physical exam:
General: Acutely ill
HEENT: Normocephalic, Atraumatic and Moist Mucous Membranes
Respiratory: Clear to auscultation bilateral. No wheezes, no rhonchi
Cardiac: Regular Rhythm and S1/S2
GI: Soft, Nontender and Nondistended
Musculoskeletal: No Clubbing, No Cyanosis and No Edema
Neuro: Awake, Alert and Oriented
Psych: Calm
A/P:
Acute respiratory insufficiency:
Oxygen supplement
Seen chest x-ray
Repeat chest x-ray in a.m.
Monitor respiratory status closely
Hydropneumothorax post-thoracentesis:
Seen in follow-up chest x-ray today and large hydropneumothorax-discussed with radiology who recommends pulmonary and CT surgery eval
Pulmonary and CT consult
Acute on chronic systolic congestive heart failure:
IV Lasix given in the ED
Resume oral diuretics today
Reviewed last echocardiogram back in August 2023 EF 36 to 41%
Cardiology consult appreciated
Continue GDMT including hydralazine and nitrate, beta-blockers, SGT inhibitor
Right pleural effusion:
s/p thoracentesis on 09/17
Cardiac valvulopathy:
Mild to moderate aortic regurgitation, tricuspid regurgitation, and mitral regurgitation.
Chronic kidney disease:
Avoid nephrotoxic
Monitor renal function
Permanent atrial fibrillation:
Cardiac monitoring
Anticoagulation on Eliquis 2.5 mg p.o. twice a day
Rate control with metoprolol succinate 100 mg twice a day and digoxin 62.5 mcg p.o. daily
Hypertension:
Continue hydralazine, Imdur, metoprolol succinate
Hyperlipidemia:
Continue statins
DVT prophylaxis:
Eliquis
CODE STATUS:
DNR
Anticipated Discharge: 24 - 48 hours
Subjective/Interval History
-
Date of Service: September 19, 2024
Patient denies any chest pain or shortness of breath today. Pulse ox on room air
Objective Data
-
Labs:
Laboratory Results
09/19/24
07:22
Sodium 142
Potassium 4.3
Chloride 102
Carbon Dioxide 31 H
BUN 61 H
Creatinine 1.7 H
Glucose 93
Calcium 9.6
Vital Signs:
Vital Signs
Temp Pulse Resp BP Pulse Ox
97.7 F 67 18 152/74 96
09/19/24 07:30 09/19/24 07:30 09/19/24 07:30 09/19/24 07:30 09/19/24 07:30
I&O
09/18/24 09/19/24 09/20/24
06:59 06:59 06:59
Intake Total 240 / 240 240 / 240
Balance 240 / 240 240 / 240
[2024-09-19] MEDS: LASIX 80 MG PO (09:15)
--- NOTE | 2024-09-19 10:00 | W.PN.CARDCBS ---
Addendum entered and electronically signed by Lamont Connolly MD 09/19/24 14:45:
I saw and examined the patient.
The [employer] Driver's note was reviewed and I agree with the note.
Comment: Briefly, 84-year-old man past medical history of heart failure reduced ejection fraction, permanent atrial fibrillation, CKD who presents with worsening dyspnea concerning for acute decompensated heart failure.
With IV diuresis and thoracentesis his volume status and breathing is improved and is currently comfortable on room air
Unfortunately chest x-ray concerning for trapped lung physiology
From a cardiology perspective he is stable and has been transition to oral Lasix
Would recommend discharge on:
p.o. Lasix 80 mg daily
Hydralazine 50 mg twice daily
Imdur 30 mg daily
Digoxin 62.5 daily
Metoprolol succinate 100 mg twice daily
Eliquis 2.5 mg twice daily
Atorvastatin 10 mg daily
Dapagliflozin 10 mg daily
Cardiology follow-up being arranged
We will sign off, please recall as needed
Original Note:
Today's Communication / Plan
-
Continue PO lasix 80mg daily
Check echo
Continue hydralazine, Imdur, metoprolol, and farxiga
Continue digoxin
Continue Eliquis 2.5mg BID
Impression / Plan
-
PCP: Dr. Gutierres
Cardiology: Dr. SOCORRO Benjamin
Nephrology: Dr. Lao
Impression:�
Presented with SOB 09/17/24
Right-sided pleural effusion
s/p R thoracentesis w/ 900 cc serosanguineous fluid removed 09/17/2024
h/o spontaneous left-sided hydropneumothorax with exudative fluid on cytology managed with chest tube and antibiotics 03/2023
Acute on chronic HFrEF
Cardiomyopathy, EF 27-41% by echo 05/18/23
CKD 3b
Permanent Afib
Chronic Eliquis OAC
HTN
Mild AR
Mod MR
Chronic LBBB
Hyperlipidemia
Palpable abdominal aorta -normal aortic ultrasound 11/2022
h/o C.diff
Lexiscan mibi 01/10/23: No evidence of ischemia
Echo 04/11/21: EF 45-50%, mild conc LVH, mild MR, mild aortic regurgitation
Echo 10/23/22: EF 40%, moderate MR, mild aortic regurgitation, mod TR with PASP 49 mmHg
Echo 04/16/23: Ejection fraction 25 to 30%, moderate MR, aortic sclerosis with mild AI, pleural effusions
Echo 05/18/23: EF 27% by volumetric assessment and 41% by Nunez
Echo 08/29/2023: EF 36-41%, stage I diastolic dysfunction, mild-mod MR, mild-mod AR, mild-mod TR, estimated PAP 60-70 mmHg
Echo 09/19/2024: Study pending
Plan:
-Presented with dry mouth and SOB. Admitted w/ R pleural effusion and underwent thoracentesis 09/17 with 900 cc removed. Repeat CXR 09/19 with large R hydropneumothorax, for pulm and CT surgery eval per primary service.
-He does have history of L hydropneumothorax that was managed with chest tube and eventually abx 03/2023.
-Given 80mg of IV lasix on 09/18, now back on PO lasix 80mg daily. Weight down slightly from admission at 143 lbs 09/19.
-No edema or SOB. Continue PO lasix
-Creat stable at 1.7 09/19. Baseline creat 1.8 to 2.2, follows w/ nephrology as OP.
-Echo 08/29/2023 with EF 36-41% and mild-moderate MR and AR. Will repeat.
-Known permanent atrial fibrillation, on Eliquis 2.5mg BID.
-Continue Toprol XL 100 mg twice daily and digoxin 0.625 mg daily.
-Not on LAURA/ARB/aldosterone antagonist due to h/o CKD 3b. Continue Imdur and hydralazine.
-SGLT2 inhibitor cost prohibitive.
-BP stable. Continue current medications
-Continue lipitor 10mg daily.
HPI: Patient came to [facility] today with a couple of nights worth of dry mouth that has made it hard for him to sleep and in the ER he was found to have a moderate sized right-sided pleural effusion and so cardiology has been consulted. Patient had a
series of admissions for HF in 2022, but after an admission to 08/2023 he has not required readmission. In 2022 his paroxysmal Afib became more permanent, but HRs were controlled with Toprol XL 100 mg BID and digoxin. Patient also had a slight
drop in EF to about 40% in 10/23/22. Then patient had an admission 03/2023 for spontaneous left hydropneumothorax with exudative fluid on cytology and he was managed with a chest tube and antibiotics, his EF dropped to 25-30% at that time. During his
last admission 08/2023 his EF was a bit better at 35-40%. Patient says that in spring his long-time partner, Antonietta, unexpectedly and he lost about 30 lbs. Patient has continued to follow with Dr. Benjamin in the office and reports
exercising by climbing 300 steps a day. Patient feels like it has been harder for him to climb steps in the last 2 weeks and he reports SOB, but no chest pain. He denies weight gain or edema. Patient wonders if he is dehydrated because he continues
on Lasix 80 mg daily despite the 30 lb weight loss over the last year. He thought this was especially true in the last 2 nights because he feels like his mouth has been so dry that it is extending into his chest and he cannot sleep at night without
drinking large amounts of water which leads to increased nocturia and because this has happened for the last 2 nights he came to the hospital today. On CXR he was found to have a moderate-sized right sided pleural effusion and is being admitted.
Progress Note - Bit Sharpener
Subjective
Date of Service: September 19, 2024
Feeling well with no SOB or edema.
Objective
Labs:
09/18/24 06:49
09/19/24 07:22
Labs
Hgb 16.6 g/dL (13.0-18.0) 09/18/24 06:49
Hct 52.6 % (39.0-52.0) H 09/18/24 06:49
Plt Count 439 10^3/uL (130-400) H 09/18/24 06:49
PT 16.7 Sec (11.4-14.6) H 09/17/24 13:00
INR 1.30 09/17/24 13:00
Sodium 142 mmol/L (135-145) 09/19/24 07:22
Potassium 4.3 mmol/L (3.5-5.1) 09/19/24 07:22
BUN 61 mg/dl (9-20) H 09/19/24 07:22
Creatinine 1.7 mg/dL (0.7-1.3) H 09/19/24 07:22
Glucose 93 mg/dl (70-99) 09/19/24 07:22
Digoxin < 0.4 ng/ml (0.8-2.0) L 09/17/24 08:56
Troponins
09/17/24
08:56
Troponin I 0.015
Vital Signs and I&O:
Vital Signs
Temp Pulse Resp BP Pulse Ox
97.7 F 67 18 150/70 96
09/19/24 07:30 09/19/24 07:30 09/19/24 07:30 09/19/24 09:15 09/19/24 07:30
Vital Signs
Temp Pulse Resp BP Pulse Ox
97.7 F 67 18 150/70 96
09/19/24 07:30 09/19/24 07:30 09/19/24 07:30 09/19/24 09:15 09/19/24 07:30
Intake & Output
09/17/24 09/18/24 09/19/24 09/20/24
06:59 06:59 06:59 06:59
Intake Total 240 / 240 240 / 240
Balance 240 / 240 240 / 240
Physical Exam
Physical Exam
GEN: NAD, AAO x3
HEENT: EOMI, MMM
LUNGS: CTA, decreased R base
CV: Irregularly irregular, S1/S2, no murmur
EXT: No edema B/L LE. No clubbing, cyanosis or lesions B/L
NEURO: Gross non-focal
SKIN: Warm, dry and pink. No rash
[2024-09-19] MEDS: LANOXIN 62.5 MCG PO (11:26)
--- NOTE | 2024-09-19 13:59 | PN.CDI ---
CDI
- -
CDI:
Physician Documentation Request
Admit Date: 09/17/24 11:03
Dear Doctor Willie,
Patient admitted with acute on chronic systolic congestive heart failure.
Chest x-ray, 'There is incomplete expansion of the right lung at the right lateral lung base, likely reflective of trapped lung.'
The diagnosis of trapped lung was included in the signed chest x-ray on 09/17/24.
Please indicate in your progress notes if you are in agreement that the above diagnosis is valid for this patient:
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
____ - Trapped lung is not a valid diagnosis for this patient
____ - Other
Use of terms such as suspected, likely, concern for, or probable are acceptable for a diagnosis that is being evaluated, monitored or treated as if it exists and can be coded in the inpatient setting, when documented at the time of discharge.
Thank you,
Maya CAT,RN,CCDS
CDI Specialist
Available via tiger text
Please use your independent medical judgment in providing your response.
--- NOTE | 2024-09-19 14:36 | CON.PUL ---
Consultation
Consultation Request
Date/Time Consultation Requested: 09/19/2024
Date/Time Consultation Performed: 09/19/2024
Requesting Provider: Dr. Tapia
Performing Provider: Dr. Ronald Horan
Reason for Consultation: Hydropneumothorax
Medical History
-
History of Present Illness:
84-year-old male with history of CHF, HTN, COPD, atrial fibrillation, chronic kidney disease presented to the hospital complaining of shortness of breath. Complaining of shortness of breath over the last few days and has been progressively getting
worse.
Denied any chest pain or lightheadedness. Patient has been compliant with his diuresis and diet.
He remains on anticoagulation and has been compliant.
Denies fevers, chills or night sweats. Denies cough or phlegm production.
Chest x-ray showed moderate right pleural effusion and CT scan showed effusion and also emphysema changes.
proBNP was elevated.
Underwent thoracentesis, chest x-ray postthoracentesis showed hydropneumothorax. I was consulted for evaluation.
Past Medical History
Past Medical History: Other (See assessment and plan)
Social History
Tobacco: Former Smoker
Alcohol: Occasional
Drug: None
Family History
Family History: Reviewed & Not Pertinent
Allergies / Home Medications
Allergies
Allergy/AdvReac Type Severity Reaction Status Date / Time
No Known Allergies Allergy Verified 08/28/23 15:58
Home Medications
�Medication �Instructions �Recorded �Confirmed �Last Taken �Type
atorvastatin 10 mg tablet 10 mg PO QPM High cholesterol 12/26/19 09/17/24 09/16/24 History
apixaban 2.5 mg tablet (Eliquis) 2.5 mg PO BID Blood clot 10/22/22 09/17/24 09/16/24 History
prevention/tx
coenzyme Q10 100 mg capsule (Co 100 mg PO Q48H Supplement 10/22/22 09/17/24 09/16/24 History
Q-10)
doxazosin 4 mg tablet 4 mg PO QPM Urinary issue 10/22/22 09/17/24 09/16/24 History
isosorbide mononitrate 30 mg 30 mg PO DAILY Heart 11/15/22 09/17/24 09/16/24 History
tablet,extended release 24 hr disease/condition
hydralazine 50 mg tablet 50 mg PO BID Blood Pressure 01/08/23 09/17/24 09/16/24 History
furosemide 80 mg tablet 80 mg PO DAILY Fluid 07/30/23 09/17/24 09/16/24 History
Retention/Swelling
empagliflozin 10 mg tablet 10 mg PO DAILY Heart Failure 08/28/23 09/17/24 09/16/24 History
(Jardiance)
digoxin 62.5 mcg (0.0625 mg) tablet 62.5 mcg PO DAILY@1200 Heart 09/17/24 09/17/24 09/16/24 History
Disease/Condition
metoprolol succinate 100 mg 100 mg PO BID Heart 09/17/24 09/17/24 09/16/24 History
tablet,extended release 24 hr Disease/Condition
therapeutic multivitamin 1 tab PO Q48H Supplement 09/17/24 09/17/24 09/16/24 History
Review of Systems
-
All other systems: Negative unless noted
Constitutional: No Symptoms
Vitals / Labs / Diagnostic Testing
Vital Signs
Temp Pulse Resp BP Pulse Ox
97.7 F 80 18 126/54 97
09/19/24 11:05 09/19/24 11:26 09/19/24 11:05 09/19/24 11:05 09/19/24 11:05
Lab Data
09/18/24 06:49
09/19/24 07:22
Microbiology
09/17/24 13:43 Pleural Fluid Body Fluid Culture - Preliminary
No Growth After 48 Hours
09/17/24 13:43 Pleural Fluid Gram Stain - Preliminary
Diagnostic Testing:
Physical Exam
-
HEENT: Normocephalic
Cardiovascular: S1/S2 and JVD (n)
Respiratory: Non-Labored Respirations, Other (No subcutaneous air) and Other (Decreased breath sounds in the right)
GI: Soft and Non Distended
Neurology: Awake and AO x 3
Skin: Warm
General: Comfortable
Assessment
-
Patient is an 84-year-old male with previous history of heart failure with reduced ejection fraction, chronic kidney disease, A-fib presenting to the emergency room with complaints of shortness of breath. This has progressively worsened over the
past several days. Chest x-ray demonstrated right pleural effusion. Underwent thoracentesis with subsequent hydropneumothorax. We were consulted on 09/19/2024.
Recurrent right pleural effusion-s/p thoracentesis. Present since at least 03/[address] chest 09/17/2024: Moderate right pleural effusion. Severe emphysema. Similar to March 2023. Few scattered tiny pulmonary nodules predominantly stable. Tiny left pleural effusion.
L sided hydropneumothorax
S/p L chest tube 04/14/23-that pleural effusion negative for cytology or cultures.
-
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
Per [facility] seen by Dr. Almanzar 09/26/2023: PFT 09/26/2023: Mild airflow obstruction. Air-trapping. Severely decreased diffusion capacity.
Not on inhalers due to the patient not complaining of shortness of breath.
Elevated proBNP
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
Admitted to [facility] with acute exacerbation of heart failure 08/30/2024
Admitted to [facility] with left pleural effusion status post chest tube 03/2022-negative cytology. Negative cultures. 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
Former smoker 40 pack years, quit 20 years ago
Aortic atherosclerosis� �
Rwkl-mw-conteegu mitral regurgitation� �
Permanent atrial fibrillation� �
History of asbestos exposure
Works for [employer] for many years.
Hypercholesterolemia� �
Myalgia� �
Mild aortic insufficiency� �
Chronic HFrEF�40%
Moderate PH on ECHO
History of C diff� �
Hernia repair
Vasectomy
Hospitalization History� �
[facility] 02/2020� �
ER Hypertension� � 09/10/22� �
acute HFmrEF, BANDAR on CKD� � 10/22/22� �
HF, BANDAR on CKD� � 11/15-11/20/2022� �
CHF, SOB� � 01/08-01/11/2023� �
Plan
-
Chronic bilateral pleural effusions: Multifactorial CHF/CKD-
This time right greater than left.
-
Patient currently asymptomatic, not on oxygen supplementation
Denies shortness of breath. Feels better.
-
Right thoracentesis 09/17/2024: 7.39/WBC 609/91% mononuclears/8% polymorphs/total protein 2.4.--Exudate>
Chest x-ray 09/19/2024 reviewed, this morning showed hydropneumothorax. Suspect this is a chronic problem. Present since at least 2022.
It is noted that he followed up up in our office with Dr. Almanzar in September 2023 he was recommended to repeat a CAT scan but he never followed through.
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
Doubt iatrogenic pneumothorax.
-
Prior history of lung disease is noted including asbestosis(*), former smoker/emphysema.
Mild airflow obstruction-not on inhalers.
He has never had a pneumothorax in the past, denies any chest trauma.
He also denies any other known triggers including coughing spells.
He is a former smoker quit 20 years ago. Total use of 40 pack years.
Prior asbestos exposure
Chronic left pleural effusion. 03/2023. Prior history.
CXR- L hydroptx s/p chest tube 03/2023
L PF: Gstain negative, culture negative at 72h on 04-17, wbc with M61.6%, LDH ratio 0.71, prot ratio 0.43, incomplete set of PF testing but overall most likely exudative PF
L PF cytology negative
L chest tube placed 04-14, mgmt by Juanis
On this CAT scan 08/2024 patient has no significant left hydropneumothorax. Small left pleural effusion.
-
Plan:
Will continue to manage volume as you are.
-
Chest x-ray 09/19/2024: Stable right hydropneumothorax compared to prior postthoracentesis.
Repeat chest x-ray 09/20/2024 to document stability of hydropneumothorax. This likely will fill back up with fluid.
Home oxygen assessment 09/20/2024.
At this point no need for chest tube placement.
-
Patient will need to follow-up in the outpatient setting for further direction depending on symptoms.
This may include VATS/Pleurx etc. depending on his symptoms.
I strongly advised To make a follow-up appointment in our office
-
Will follow fluid cytology-malignancies within the differential diagnosis.
-
Dr. Horan updated daughter over the phone 09/19/2024.
.
Discussed with primary team.
-
If tomorrow morning patient remains asymptomatic, chest x-ray shows stability of hydropneumothorax and there is no exertional symptoms okay to discharge at that time.
If patient is symptomatic then may need to consider readdressing.

Diagnostic Data
CXR 04-17: drained L PF, L chest tube in place. Small R PF
CXR 04-16 and : portable, lordotic, slightly rotated and underpenetrated, L chest tube in (low) position and with resolved L PF. Small R PF, R basilar linear atelectasis
Chest X-Ray: 04/15/23- 1. � SMALL LEFT HYDROPNEUMOTHORAX involving less than 10% of the lung volume.
2. � Left pigtail pleural catheter projecting over the left upper quadrant of the abdomen (possibly in the left posterior inferior pleural space).
3. � Large amount of bilateral lower lobe airspace opacity which could be atelectasis or pneumonia.
4. � Small to moderate-sized right pleural effusion.
-
CT chest 09/17/2024: Reviewed,
Moderate right pleural effusion, somewhat similar to March 2023. Chronic right lower lobe consolidation. Few scattered tiny pulmonary nodules. Tiny left pleural effusion with left lower lobe subsegmental atelectasis. Emphysema.
Chest CT s/c 04-15-23:
Comparison examination: 04/15/2023 chest x-ray
FINDINGS:
There is less than 10% left-sided pneumothorax located at the anterior aspect in this supine patient had best seen on series 297 series 205, sagittal image 68 and coronal image 38.
The tip of a pigtail drainage catheter is at the posterior lateral left lung base.
There are extensive emphysematous changes throughout both lungs most prominent in the upper lobes consistent with centrilobular emphysema
There is moderate-sized right pleural effusion with associated compressive atelectasis at the right lung base.
There is moderate acute versus chronic acinar airspace disease with associated bronchiectasis throughout the left lower lobe.
There is mild cardiomegaly.
There is no pulmonary edema
There is vascular calcification including coronary artery calcification and aortic valvular calcification indicating atherosclerosis
There is no mediastinal lymphadenopathy.
Imaging obtained into the upper abdomen demonstrates moderate right-sided renal cortical atrophy Acinar airspace disease with associated bronchiectasis in the left lower lobe
IMPRESSION:
1.). Less than 10% left-sided pneumothorax despite the presence of left-sided chest tube with its tip at the posterior lateral left lung base.
2). Extensive centrilobular emphysema
3).There is moderate acute versus chronic acinar airspace disease with associated bronchiectasis throughout the left lower lobe.
4). Mild cardiomegaly without associated pulmonary edema
TTE 04-16-23
CONCLUSIONS
1. Borderline dilated left ventricle with global hypokinesis and septal straightening, EF 25-30%
2. Mitral annular calcification with thickened leaflets, moderate mitral regurgitation and dilated left atrium
3. Aortic sclerosis with mild aortic regurgitation
4. Normal right heart with normal pulmonary artery pressure
5. Pleural effusions identified
In October of this year the ejection fraction was 40%. The pulmonary artery systolic pressure was 49 mmHg. Otherwise the 2 studies are similar.
10/23/22 Echo: Mildly dilated left ventricle. Normal left ventricular wall thickness. �Moderately reduced left ventricular systolic function. Left ventricular�ejection fraction is 40% by Nunez's method of discs. Global hypokinesis.�Diastolic
function indeterminate due to atrial fibrillation.�Mitral valve opens normally. Mitral annular calcification. Moderate mitral�regurgitation.�Moderately dilated left atrium. Indexed LA volume is moderately abnormal (42-48�mL/m2).�Trileaflet aortic
valve. Aortic valve opens normally. Mild aortic�regurgitation.�Tricuspid valve opens normally.� Moderate tricuspid regurgitation. Estimated�pulmonary artery pressure of 49 mmHg assuming a right atrial pressure of 3�mmHg.�Mildly dilated right
atrium.�Normal right ventricular size and function.�Pleural effusion present.�Since echocardiogram March 2021, left ventricle is now mildly dilated and�ejection fraction is decreased from 45-50% to 40%.� MR has worsened to moderate�and pleural
effusion is noted.
--- NOTE | 2024-09-19 14:45 | CONSULT.CT ---
Consultation
-
Date/Time Consultation Requested: 09/19/2024
Date/Time Consultation Performed: 09/19/2024
Requesting Provider:
Performing Provider: Fabi hood
Reason for Consultation: Recurrent hydropneumothorax now with entrapped lung
Patient History
Physicians
Family Physician: Dr. Gutierres
Outpatient Sludge Control Operator: Dr. Salvador Benjamin
Inpatient Sludge Control Operator: Stock Patcher: Dr. Lao
History of Present Illness
Patient is a 84-year-old gentleman with a history of a recurrent pleural effusions. Recently admitted for increasing shortness of breath over the past 2 weeks. He has continued to take his oral diuretics. He denies any fevers, chills, cough and
denies chest pain. He presented to [facility] ER and chest x-ray showed moderate right pleural effusion. Chest x-ray also showed emphysematous changes. On admission he was initially treated for acute on chronic heart failure with reduced
ejection fraction. He was treated with IV Lasix.
Interventional radiology was consulted for thoracentesis which was performed which removed approximately 900 mL of serosanguineous fluid. Follow-up chest x-ray revealed trapped lung.
Cardiothoracic surgery was consulted for definitive treatment. CAT scans were reviewed and revealed emphysematous changes and calcifications. This patient would be best served by going to a tertiary care center. Would recommend the lung center at
[facility], or [facility].
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
Best option would be to transfer to tertiary care center.
Patient appears stable at this point and may be able to be discharged to follow-up as an outpatient.
Patient is extremely thin and frail appearing and upon further questioning admits to recent 30 pound weight loss over past year. He admits to losing his longtime life partner Antonietta.
Past Medical History
Past medical history significant for recent 30 pound weight loss
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
Acute on chronic heart failure with reduced ejection fraction, cardiomyopathy,EF 35%
Hypertension
Hyperlipidemia
Permanent atrial fibrillation
Moderate aortic insufficiency
Moderate mitral regurgitation
Moderate tricuspid regurgitation
Chronic left bundle branch block
Pulmonary hypertension with pulmonary artery pressures 60-70
GERD
History of C. difficile
Past Surgical History
Past Surgical History: None
Dental History
n/a
Family History
Mother: N/A
Father: N/A
Social History
Alcohol: Occasional
Drug: None
Tobacco: Non-Smoker
Personal: Single (Longtime partner last year)
Living: Alone
Employment: Retired
Allergies
Allergy/AdvReac Type Severity Reaction Status Date / Time
No Known Allergies Allergy Verified 08/28/23 15:58
Home Medications
�Medication �Instructions �Recorded �Confirmed �Type
atorvastatin 10 mg tablet 10 mg PO QPM High cholesterol 12/26/19 09/17/24 History
apixaban 2.5 mg tablet (Eliquis) 2.5 mg PO BID Blood clot 10/22/22 09/17/24 History
prevention/tx
coenzyme Q10 100 mg capsule (Co 100 mg PO Q48H Supplement 10/22/22 09/17/24 History
Q-10)
doxazosin 4 mg tablet 4 mg PO QPM Urinary issue 10/22/22 09/17/24 History
isosorbide mononitrate 30 mg 30 mg PO DAILY Heart 11/15/22 09/17/24 History
tablet,extended release 24 hr disease/condition
hydralazine 50 mg tablet 50 mg PO BID Blood Pressure 01/08/23 09/17/24 History
furosemide 80 mg tablet 80 mg PO DAILY Fluid 07/30/23 09/17/24 History
Retention/Swelling
empagliflozin 10 mg tablet 10 mg PO DAILY Heart Failure 08/28/23 09/17/24 History
(Jardiance)
digoxin 62.5 mcg (0.0625 mg) tablet 62.5 mcg PO DAILY@1200 Heart 09/17/24 09/17/24 History
Disease/Condition
metoprolol succinate 100 mg 100 mg PO BID Heart 09/17/24 09/17/24 History
tablet,extended release 24 hr Disease/Condition
therapeutic multivitamin 1 tab PO Q48H Supplement 09/17/24 09/17/24 History
Review of Systems
-
History Source: Patient
General: Reports Weight Loss and Fatigue
HEENT: Reports Hoarseness
Respiratory: Reports SOB, SHAH and Cough
Cardiac: Reports Edema and Other (Acute on chronic diastolic heart failure)
Abdomen/GI: Reports No Symptoms
: Reports Nocturia
Musculoskeletal: Reports No Symptoms
Skin: Reports No Symptoms
Neurological: Reports No Symptoms
Vascular: Reports No Symptoms
Physical Exam
Vital Signs
Temp 97.7 F 09/19/24 11:05
Temp route: Oral 09/19/24 11:05
Pulse 80 09/19/24 11:26
Rhythm: Atrial fibrillation 09/19/24 07:58
Resp Rate 18 09/19/24 11:05
Blood pressure 126/54 09/19/24 11:05
Blood pressure extremity used: Left upper arm 09/19/24 11:05
Position: Lying 09/19/24 11:05
MAP (cuff-Lincoln Monitor) 130 09/17/24 11:00
SaO2 97 09/19/24 11:05
Nasal Cannula flow liters per minute 96 09/19/24 07:58
Oxygen Mode of Delivery Room air 09/19/24 11:05
Pulse Ox at Rest 98 09/19/24 13:07
Acceptable pain level during hospitalization? 0 09/17/24 06:35
Can the patient verbally communicate their pain? Yes 09/19/24 07:58
Actual Weight 143 lb 9 oz 09/19/24 06:00
Body Mass Index (BMI) 20.6 09/19/24 06:00
Oxygen Saturation with Activity 98 09/19/24 13:07
Labs
09/18/24 06:49
09/19/24 07:22
PT 16.7 Sec (11.4-14.6) H 09/17/24 13:00
Troponin I 0.015 ng/ml 09/17/24 08:56
Igl-G-Ifnawuoumyt Pept 9140 pg/ml 09/17/24 08:56
Exam
General: No Apparent Distress, Comfortable, Poor Appetite and Other (Thin cachectic elderly gentleman)
HEENT: Normocephalic, Anicteric and Atraumatic
Neck: Trachea Midline
Respiratory: Clear
Cardiac: Irregular Rhythm, Murmur and HJR
GI: Soft, Non Tender, Non Distended and Normal Bowel Sounds
Rectal: Deferred by Provider
Skin: Warm
Neuro: AO x 3
Extremities: Pulses
Lymph: No Lymphadenopathy
Psych: Calm
Assessment / Plan
-
Assessment: Right pleural effusion status postthoracentesis yielding 900 mL of serous sanguinous fluid. Follow-up chest x-ray reveals entrapped lung
Interstitial lung disease
Acute on chronic diastolic heart failure with reduced ejection fraction. Will need follow-up echo
Moderate aortic insufficiency
Moderate mitral regurgitation
Moderate tricuspid regurgitation
Cardiomyopathy with ejection fraction of 35%
Pulmonary hypertension with PAP 60-70
Hypertension
Hyperlipidemia
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
Permanent atrial fibrillation on anticoagulation
Recent weight loss of 30 pounds after the of his longtime life partner
Plan:
Would recommend transfer to tertiary care center. Recommended lung center at [facility] or [facility].
He is not a candidate for any type of surgical intervention at [facility] with his severe interstitial lung disease with calcifications
--- NOTE | 2024-09-19 15:36 | W.HF.CON ---
Heart Failure
- LV Function
Left ventricular function study result: LV Ejection fraction 41-49%
Ejection Fraction Percentage: 40-45
- ARNI
Patient already on ARNI: No
Heart Failure ARNI Not Indicated: LV Ejection Fraction >/= 40%
- ACEI/ARB
Patient already on ACEI/ARB: No
Heart Failure ACEI/ARB Not Indicated: LV Ejection Fraction > 40%
- Beta Jes
Patient already on Evidence Based Beta Jes: Yes
- Mineralocorticord Receptor Antagonist
Patient already on MRA: No
Heart Failure MRA Not Indicated: LV Ejection Fraction > 40%
- SGLT-2 Inhibitor
Patient already on SGLT-2 Inhibitor: Yes
- Hydralazine & Isosorbide Dinitrate
Patient already on Hydralazine & Isosorbide Dinitrate: Yes
- Afib Anticoagulation
Patient already on Anticoagulation for Afib: Yes
- NYHA CHF Classification
NYHA CHF Classification Level: Class III - Symptoms w/ min exertion, interferes w/ nml daily activity (ILD)
- ACC/AHA Stage
ACC/AHA Stage: Stage C: Symptomatic Heart Failure
--- NOTE | 2024-09-19 16:10 | VNURNOTE ---
Home Health Liaison met with patient at bedside to discuss [facility] nurse/therapy, visits, schedule and homebound status. Patient is agreeable and understands that visits at home will be 2-3 x per week to assess and teach medical management.
[facility] brochure provided with contact information. Patient is aware that [facility] will contact them for start of care in 1-2 days after discharge from .
[facility] referral completed in [facility].
[2024-09-19] MEDS: LIPITOR 10 MG PO (16:45)
[2024-09-19] MEDS: CARDURA 4 MG PO (16:45)
--- NOTE | 2024-09-19 17:02 | CM ---
Spoke with pt in room.
Offered VN he requested [facility] .
Maya Duran Liaison [facility] set up VN.
Pt not ready for dc yet.
PLAN Home with [facility]
[2024-09-20 03:56] VITALS: BP 151/54
[2024-09-20 06:00] VITALS: BMI 20.5
[2024-09-20 06:17] LABS: Hematocrit 51.8 % (39.0-52.0); Hemoglobin 16.5 g/dL (13.0-18.0); Mean Corp Hgb Conc. 31.9 g/dL (33.0-37.0); Mean Corpuscular Hgb 25.4 pg (27.0-31.0); Mean Corpuscular Volume 79.8 fL (80.0-94.0); Mean Platelet Volume 9.6 fL (7.4-10.4); Platelet Count 411 10^3/uL (130-400); Red Blood Cell Count 6.49 10^6/uL (4.70-6.10); Red Cell Dist. Width 17.6 % (11.5-14.5); White Blood Cell Count 7.9 10^3/uL (4.8-10.8)
[2024-09-20 06:42] LABS: Blood Urea Nitrogen 59 mg/dl (9-20); Calcium 9.1 mg/dl (8.4-10.2); Carbon Dioxide 28 mmol/L (22-30); Chloride 102 mmol/L (98-107); Estimated Creatinine Clearance 34 ml/min; Glucose 95 mg/dl (70-99); Sodium 140 mmol/L (135-145); eGFR 45.91
[2024-09-20 07:20] VITALS: BP 146/66
[2024-09-20] MEDS: FARXIGA 10 MG PO (08:57)
[2024-09-20] MEDS: IMDUR (EXTENDED RELEASE) 30 MG PO (08:57)
[2024-09-20] MEDS: LASIX 80 MG PO (08:57)
[2024-09-20] MEDS: ELIQUIS 2.5 MG PO ×2 (08:57→20:44)
[2024-09-20] MEDS: APRESOLINE 50 MG PO ×2 (08:58→20:43)
[2024-09-20] MEDS: TOPROL XL 100 MG PO ×2 (08:58→20:44)
--- NOTE | 2024-09-20 09:09 | W.PN.HOSP.TC ---
Today's Communication/Plan
-
Pulmonary eval. Repeat chest x-ray.
Assessment / Plan
Assessment / Plan
Physical exam:
General: No acute distress
HEENT: Normocephalic, Atraumatic and Moist Mucous Membranes
Respiratory: Decreased breath sounds bilateral. No wheezes, no rhonchi
Cardiac: Regular Rhythm and S1/S2
GI: Soft, Nontender and Nondistended
Musculoskeletal: No Clubbing, No Cyanosis and No Edema
Neuro: Awake, Alert and Oriented, no gross neurological deficits
Psych: Calm
A/P:
Acute respiratory insufficiency:
Oxygen supplement
Seen chest x-ray today and trapped lung is about the same but now there is a possibility of a left pneumothorax
Pulmonary reevaluation
Repeat chest x-ray later this afternoon
Monitor respiratory status closely
Reported hydropneumothorax post-thoracentesis but actually it is trapped lung or pneumothorax ex vacuo(non-expandable lung,RE):
Discussed with pulmonary
Reviewed CT surgery note
No need for chest tube which in this case would make things worse.
No indication for surgical intervention at the moment and standard of care is monitoring as outpatient at this point. Patient is asymptomatic and cavity will fill up with fluid again. Consideration for VATS can happen as outpatient down the road.
Possible left apical pneumothorax:
Oxygen
Reevaluate repeat images
Acute on chronic systolic congestive heart failure:
IV Lasix given in the ED
Resumed oral diuretics
Reviewed last echocardiogram back in August 2023 EF 36 to 41%
Cardiology consult appreciated
Continue GDMT including hydralazine and nitrate, beta-blockers, SGT inhibitor
Right pleural effusion:
s/p thoracentesis on 09/17
Follow-up cytology as outpatient
BANDAR:
Creatinine 1.5 today
Creatinine 1.8 upon admission
Cardiac valvulopathy:
Mild to moderate aortic regurgitation, tricuspid regurgitation, and mitral regurgitation.
Chronic kidney disease:
Avoid nephrotoxic
Monitor renal function
Permanent atrial fibrillation:
Cardiac monitoring
Anticoagulation on Eliquis 2.5 mg p.o. twice a day
Rate control with metoprolol succinate 100 mg twice a day and digoxin 62.5 mcg p.o. daily
Hypertension:
Continue hydralazine, Imdur, metoprolol succinate
Hyperlipidemia:
Continue statins
DVT prophylaxis:
Eliquis
CODE STATUS:
DNR
Total time spent on today's encounter was 52 minutes which included time spent in counseling the patient/family regarding diagnosis and treatment plan as listed above, goals of care, and symptom management. Case was discussed with nursing staff,
specialists, and care coordinators/case management. All labs and imaging personally reviewed by me. Remainder the time spent in detailed review of previous records, lab data, imaging, and other medical provider documentation.
Anticipated Discharge: 24 - 48 hours
Subjective/Interval History
-
Date of Service: September 20, 2024
Patient denies any shortness of breath or chest pain. Afebrile
Objective Data
-
Labs:
Laboratory Results
09/20/24
05:56
WBC 7.9
Hgb 16.5
Hct 51.8
Plt Count 411 H
Sodium 140
Potassium 4.0
Chloride 102
Carbon Dioxide 28
BUN 59 H
Creatinine 1.5 H
Glucose 95
Calcium 9.1
Vital Signs:
Vital Signs
Temp Pulse Resp BP Pulse Ox
97.8 F 62 16 146/66 96
09/20/24 07:20 09/20/24 07:20 09/20/24 07:20 09/20/24 07:20 09/20/24 07:20
I&O
02/28/25 03/01/25 03/02/25
06:59 06:59 06:59
Intake Total 240 / 240 600 / 600
Output Total 350 / 350
Balance 240 / 240 250 / 250
[2024-09-20 11:15] VITALS: BP 129/54
[2024-09-20] MEDS: LANOXIN 62.5 MCG PO (12:24)
[2024-09-20 15:25] VITALS: BP 130/102
--- NOTE | 2024-09-20 16:40 | W.PN.PUL3 ---
Today's Communication / Plan
-
Placed onto Ventimask today due to new left apical pneumothorax
Continue on Ventimask today and night and can use nasal cannula if he wants to eat or wants a break
Repeat CXR tomorrow morning on 09/21
If CXR tomorrow shows no recurrence of left-sided pneumothorax and right lower lobe pneumothorax ex vacuo appears stable, then he is okay for discharge from pulmonary perspective
Pulmonary service will continue to follow along while he remains hospitalized
Assessment
-
Patient is an 84-year-old male with previous history of heart failure with reduced ejection fraction, chronic kidney disease, A-fib presenting to the emergency room with complaints of shortness of breath. This has progressively worsened over the
past several days. Chest x-ray demonstrated right pleural effusion. Underwent thoracentesis with subsequent hydropneumothorax. We were consulted on 09/19/2024.
Recurrent right pleural effusion-s/p thoracentesis. Present since at least 03/[address] chest 09/17/2024: Moderate right pleural effusion. Severe emphysema. Similar to March 2023. Few scattered tiny pulmonary nodules predominantly stable. Tiny left pleural effusion.
L sided hydropneumothorax
S/p L chest tube 04/14/23-that pleural effusion negative for cytology or cultures.
-
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
Per [facility] seen by Dr. Almanzar 09/26/2023: PFT 09/26/2023: Mild airflow obstruction. Air-trapping. Severely decreased diffusion capacity.
Not on inhalers due to the patient not complaining of shortness of breath.
Elevated proBNP
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
Admitted to [facility] with acute exacerbation of heart failure 08/30/2024
Admitted to [facility] with left pleural effusion status post chest tube 03/2022-negative cytology. Negative cultures. 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
Former smoker 40 pack years, quit 20 years ago
Aortic atherosclerosis� �
Ayrn-hd-wjahnnbd mitral regurgitation� �
Permanent atrial fibrillation� �
History of asbestos exposure
Works for [employer] for many years.
Hypercholesterolemia� �
Myalgia� �
Mild aortic insufficiency� �
Chronic HFrEF�40%
Moderate PH on ECHO
History of C diff� �
Hernia repair
Vasectomy
Hospitalization History� �
[facility] FALL 02/2020� �
ER Hypertension� � 09/10/22� �
acute HFmrEF, BANDAR on CKD� � 10/22/22� �
HF, BANDAR on CKD� � 11/15-11/20/2022� �
CHF, SOB� � 01/08-01/11/2023� �
Plan
-
Chronic bilateral pleural effusions: Multifactorial CHF/CKD-
This time right greater than left.
-
Patient currently asymptomatic, not on oxygen supplementation
Denies shortness of breath. Feels better.
-
Right thoracentesis 09/17/2024: 7.39/WBC 609/91% mononuclears/8% polymorphs/total protein 2.4.--Exudate>
Chest x-ray 09/19/2024 reviewed, this morning showed hydropneumothorax. Suspect this is a chronic problem. Present since at least 2022.
It is noted that he followed up up in our office with Dr. Almanzar in September 2023 he was recommended to repeat a CAT scan but he never followed through.
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
Doubt iatrogenic pneumothorax.
-
Prior history of lung disease is noted including asbestosis, former smoker/emphysema.
Mild airflow obstruction-not on inhalers.
He has never had a pneumothorax in the past, denies any chest trauma.
He also denies any other known triggers including coughing spells.
He is a former smoker quit 20 years ago. Total use of 40 pack years.
Prior asbestos exposure
Chronic left pleural effusion. 03/2023. Prior history.
CXR- L hydroptx s/p chest tube 03/2023
L PF: Gstain negative, culture negative at 72h on 04-17, wbc with M61.6%, LDH ratio 0.71, prot ratio 0.43, incomplete set of PF testing but overall most likely exudative PF
L PF cytology negative
L chest tube placed 04-14, mgmt by IRsebastien
On this CAT scan 09/17/2024 patient has no significant left hydropneumothorax. Small left pleural effusion.
-
Plan:
Continue with p.o. Lasix 80 mg daily
-
Chest x-ray 09/19/2024: Stable right hydropneumothorax compared to prior post-thoracentesis.
CXR this morning on 09/20/2024 shows a new small left apical pneumothorax --> patient placed onto Ventimask at 55% FiO2, and repeat CXR later in the afternoon showed resolved left-sided PTX
Home oxygen assessment prior to discharge
At this point no need for chest tube placement.
-
Patient will need to follow-up in the outpatient setting for further direction depending on symptoms.
This may include VATS/Pleurx etc. depending on his symptoms.
I strongly advised To make a follow-up appointment in our office
-
Will follow fluid cytology-cultures from thoracentesis on 09/17/2024
-
Dr. Horan updated daughter over the phone 09/19/2024.
.
Discussed with primary team.
-
If left-sided pneumothorax remains resolved tomorrow morning, then believe he would be stable for discharge with outpatient pulmonary office follow-up.

Diagnostic Data
CXR 04-17: drained L PF, L chest tube in place. Small R PF
CXR 04-16 and : portable, lordotic, slightly rotated and underpenetrated, L chest tube in (low) position and with resolved L PF. Small R PF, R basilar linear atelectasis
Chest X-Ray: 04/15/23- 1. � SMALL LEFT HYDROPNEUMOTHORAX involving less than 10% of the lung volume.
2. � Left pigtail pleural catheter projecting over the left upper quadrant of the abdomen (possibly in the left posterior inferior pleural space).
3. � Large amount of bilateral lower lobe airspace opacity which could be atelectasis or pneumonia.
4. � Small to moderate-sized right pleural effusion.
-
CT chest 09/17/2024: Reviewed,
Moderate right pleural effusion, somewhat similar to March 2023. Chronic right lower lobe consolidation. Few scattered tiny pulmonary nodules. Tiny left pleural effusion with left lower lobe subsegmental atelectasis. Emphysema.
Chest CT s/c 04-15-23:
Comparison examination: 04/15/2023 chest x-ray
FINDINGS:
There is less than 10% left-sided pneumothorax located at the anterior aspect in this supine patient had best seen on series 297 series 205, sagittal image 68 and coronal image 38.
The tip of a pigtail drainage catheter is at the posterior lateral left lung base.
There are extensive emphysematous changes throughout both lungs most prominent in the upper lobes consistent with centrilobular emphysema
There is moderate-sized right pleural effusion with associated compressive atelectasis at the right lung base.
There is moderate acute versus chronic acinar airspace disease with associated bronchiectasis throughout the left lower lobe.
There is mild cardiomegaly.
There is no pulmonary edema
There is vascular calcification including coronary artery calcification and aortic valvular calcification indicating atherosclerosis
There is no mediastinal lymphadenopathy.
Imaging obtained into the upper abdomen demonstrates moderate right-sided renal cortical atrophy Acinar airspace disease with associated bronchiectasis in the left lower lobe
IMPRESSION:
1.). Less than 10% left-sided pneumothorax despite the presence of left-sided chest tube with its tip at the posterior lateral left lung base.
2). Extensive centrilobular emphysema
3).There is moderate acute versus chronic acinar airspace disease with associated bronchiectasis throughout the left lower lobe.
4). Mild cardiomegaly without associated pulmonary edema
TTE 04-16-23
CONCLUSIONS
1. Borderline dilated left ventricle with global hypokinesis and septal straightening, EF 25-30%
2. Mitral annular calcification with thickened leaflets, moderate mitral regurgitation and dilated left atrium
3. Aortic sclerosis with mild aortic regurgitation
4. Normal right heart with normal pulmonary artery pressure
5. Pleural effusions identified
In October of this year the ejection fraction was 40%. The pulmonary artery systolic pressure was 49 mmHg. Otherwise the 2 studies are similar.
10/23/22 Echo: Mildly dilated left ventricle. Normal left ventricular wall thickness. �Moderately reduced left ventricular systolic function. Left ventricular�ejection fraction is 40% by Nunez's method of discs. Global hypokinesis.�Diastolic
function indeterminate due to atrial fibrillation.�Mitral valve opens normally. Mitral annular calcification. Moderate mitral�regurgitation.�Moderately dilated left atrium. Indexed LA volume is moderately abnormal (42-48�mL/m2).�Trileaflet aortic
valve. Aortic valve opens normally. Mild aortic�regurgitation.�Tricuspid valve opens normally.� Moderate tricuspid regurgitation. Estimated�pulmonary artery pressure of 49 mmHg assuming a right atrial pressure of 3�mmHg.�Mildly dilated right
atrium.�Normal right ventricular size and function.�Pleural effusion present.�Since echocardiogram March 2021, left ventricle is now mildly dilated and�ejection fraction is decreased from 45-50% to 40%.� MR has worsened to moderate�and pleural
effusion is noted.
Total time spent today was 38 minutes for this encounter. Time includes reviewing laboratory test/imaging results, reviewing pertinent medical records, obtaining and reviewing medical history, performing an appropriate exam, ordering medications,
tests and procedures. Time also includes documentation of this encounter, coordinating patient care and communicating with other healthcare professionals. Total time does not include separately billed tests performed on this date of service.
Subjective Data
-
Date of Service:
Date of Service: September 20, 2024
Chief Complaint: Pulmonary Follow Up
Subjective:
Patient was seen earlier today (late note entry). Patient seen this morning, sitting in bed in no acute distress. Denies chest pain or shortness of breath. CXR today shows a new small left apical pneumothorax, and he was placed onto Ventimask at
55% FiO2. He feels well on the Ventimask, and has no complaints. He wants to know if the Ventimask flow rate can go down as it is loud.
Review of Systems
General: Other (Negative unless mentioned above)
Objective Data
Data Reviewed
Vital Signs / I&O / Oxygen:
Vital Signs
Temp Pulse Resp BP Pulse Ox
97.8 F 62 16 146/66 96
09/20/24 07:20 09/20/24 07:20 09/20/24 07:20 09/20/24 07:20 09/20/24 07:20
Intake and Output
09/19/24 09/20/24 09/21/24
06:59 06:59 06:59
Intake Total 240 / 240 600 / 600
Output Total 350 / 350
Balance 240 / 240 250 / 250
SaO2 96
Nasal Cannula flow liters per 96
minute
Physical Exam
General: Respiratory Distress (negative), Comfortable, Chills (negative) and Sweats (negative)
HEENT: Normocephalic and Anicteric
Cardiovascular: S1-S2 and Peripheral Edema (negative)
Respiratory: Wheeze (negative), Crackles (negative), Rhonchi (negative), Non-Labored Respirations, Stridor (negative) and Other (Diminished breath sounds bilaterally)
GI: Soft, Non Distended, Non Tender and Normal Bowel Sounds
Neurology: Awake, Alert and Tremors (negative)
Skin: Warm, Dry, Cyanosis (negative) and Jaundice (negative)
Labs/Micro/Reports
Lab Data
09/20/24 05:56
09/20/24 05:56
Microbiology
09/17/24 13:43 Pleural Fluid Body Fluid Culture - Preliminary
No Growth After 48 Hours
09/17/24 13:43 Pleural Fluid Gram Stain - Preliminary
[2024-09-20] MEDS: LIPITOR 10 MG PO (17:54)
[2024-09-20] MEDS: CARDURA 4 MG PO (17:54)
[2024-09-20 19:37] VITALS: BP 138/61
[2024-09-20 23:26] VITALS: BP 140/54
[2024-09-21 03:17] VITALS: BP 150/63
[2024-09-21 06:00] VITALS: BMI 20.4
[2024-09-21 06:37] LABS: % Basophils 1.3 % (0-2); % Eosinophils 3.2 % (0-6); % Immature Granulocytes 0.3 % (0-0.5); % Lymphocytes 9.8 % (20.5-51.1); % Monocytes 7.9 % (1.7-9.3); % Neutrophils 77.5 % (42.2-75.2); Absolute Basophils 0.1 10^3/uL (0-0.2); Absolute Eosinophils 0.2 10^3/uL (0-0.7); Absolute Lymphocytes 0.7 10^3/uL (1.2-3.4); Absolute Monocytes 0.6 10^3/uL (0.1-0.6); Absolute Neutrophils 5.8 10^3/uL (1.4-6.5); Hematocrit 53.5 % (39.0-52.0); Hemoglobin 16.8 g/dL (13.0-18.0); Mean Corp Hgb Conc. 31.4 g/dL (33.0-37.0); Mean Corpuscular Hgb 25.5 pg (27.0-31.0); Mean Corpuscular Volume 81.1 fL (80.0-94.0); Mean Platelet Volume 9.4 fL (7.4-10.4); Nucleated Red Blood Cells % 0 % (-); Platelet Count 412 10^3/uL (130-400); Red Cell Dist. Width 17.6 % (11.5-14.5); White Blood Cell Count 7.5 10^3/uL (4.8-10.8)
[2024-09-21 06:51] LABS: Blood Urea Nitrogen 60 mg/dl (9-20); Calcium 9.2 mg/dl (8.4-10.2); Carbon Dioxide 31 mmol/L (22-30); Chloride 102 mmol/L (98-107); Estimated Creatinine Clearance 28 ml/min; Glucose 94 mg/dl (70-99); Potassium 4.7 mmol/L (3.5-5.1); Sodium 142 mmol/L (135-145); eGFR 36.89
[2024-09-21] MEDS: TOPROL XL 100 MG PO (07:40)
[2024-09-21] MEDS: IMDUR (EXTENDED RELEASE) 30 MG PO (07:41)
[2024-09-21] MEDS: FARXIGA 10 MG PO (07:41)
[2024-09-21] MEDS: ELIQUIS 2.5 MG PO (07:42)
[2024-09-21] MEDS: APRESOLINE 50 MG PO (07:42)
[2024-09-21 08:10] VITALS: BP 156/59
[2024-09-21] MEDS: LASIX PO (08:26)
--- NOTE | 2024-09-21 09:15 | W.PN.HOSP.TC ---
Today's Communication/Plan
-
Discharge today
Assessment / Plan
Assessment / Plan
Physical exam:
General: No acute distress
HEENT: Normocephalic, Atraumatic and Moist Mucous Membranes
Respiratory: Decreased breath sounds bilateral. No wheezes, no rhonchi
Cardiac: Regular Rhythm and S1/S2
GI: Soft, Nontender and Nondistended
Musculoskeletal: No Clubbing, No Cyanosis and No Edema
Neuro: Awake, Alert and Oriented, no gross neurological deficits
Psych: Calm
A/P:
Acute respiratory insufficiency:
Oxygen supplement
Seen chest x-ray today and trapped lung is stable
Pulmonary reevaluation
Repeat chest x-ray later this afternoon
Monitor respiratory status closely
Reported hydropneumothorax post-thoracentesis but actually it is trapped lung or pneumothorax ex vacuo(non-expandable lung,RE):
Discussed with pulmonary
Reviewed CT surgery note
No need for chest tube which in this case would make things worse.
No indication for surgical intervention at the moment and standard of care is monitoring as outpatient at this point. Patient is asymptomatic and cavity will fill up with fluid again. Consideration for VATS can happen as outpatient down the road.
Left apical pneumothorax:
Oxygen
Reevaluate repeat images
Acute on chronic systolic congestive heart failure:
IV Lasix given in the ED
Resumed oral diuretics as outpatient
Reviewed last echocardiogram back in August 2023 EF 36 to 41%
Cardiology consult appreciated
Continue GDMT including hydralazine and nitrate, beta-blockers, SGT inhibitor
Right pleural effusion:
s/p thoracentesis on 09/17
Follow-up cytology as outpatient
BANDAR:
Creatinine up mildly today
Creatinine 1.8 upon admission
Cardiac valvulopathy:
Mild to moderate aortic regurgitation, tricuspid regurgitation, and mitral regurgitation.
Chronic kidney disease:
Avoid nephrotoxic
Monitor renal function
Permanent atrial fibrillation:
Cardiac monitoring
Anticoagulation on Eliquis 2.5 mg p.o. twice a day
Rate control with metoprolol succinate 100 mg twice a day and digoxin 62.5 mcg p.o. daily
Hypertension:
Continue hydralazine, Imdur, metoprolol succinate
Hyperlipidemia:
Continue statins
DVT prophylaxis:
Eliquis
CODE STATUS:
DNR
Anticipated Discharge: Today
Subjective/Interval History
-
Date of Service: September 21, 2024
Feels well. No sob or cp
Objective Data
-
Labs:
Laboratory Results
09/21/24
06:05
WBC 7.5
Hgb 16.8
Hct 53.5 H
Plt Count 412 H
Sodium 142
Potassium 4.7
Chloride 102
Carbon Dioxide 31 H
BUN 60 H
Creatinine 1.8 H
Glucose 94
Calcium 9.2
Vital Signs:
Vital Signs
Temp Pulse Resp BP Pulse Ox
97.4 F 56 18 156/59 99
09/21/24 08:10 09/21/24 08:10 09/21/24 08:10 09/21/24 08:10 09/21/24 08:10
I&O
09/20/24 09/21/24 09/22/24
06:59 06:59 06:59
Intake Total 600 / 600 420 / 420
Output Total 350 / 350 700 / 700
Balance 250 / 250 -280 / -280
[2024-09-21 11:43] VITALS: BP 156/63
[2024-09-21] MEDS: LANOXIN 62.5 MCG PO (11:53)
--- NOTE | 2024-09-21 11:53 | W.DCSUMMARY ---
Discharge Summary
Discharge Data
Date of Admission: 09/17/24
Date of Discharge: 09/21/24
-
Pending Results: No
Hospital Course
Patient 84 years old male history of CKD, CHF, A-fib, COPD came into the hospital shortness of breath. His dyspnea appeared to be multifactorial. Cardiology consulted. He was given IV diuresis. He also had a right-sided pleural effusion and IR
consulted and he underwent thoracentesis. Dyspnea improved. Post-thoracentesis it was discovered that he had right trapped lung and serial chest x-ray did not reveal changes from that perspective. Cytology will need to follow up as outpatient. On
the other hand, he had a spontaneous small pneumothorax on the left side and he was given supplemental oxygen and improved substantially. He had a follow up CXR and improvement noticed. Pulmonary consulted and follow-up throughout this hospital
stay. CT surgery saw him and felt he is not a candidate for surgery in this hospital if required and can check a tertiary care center for such. He had mild bump in his creatinine but not far off his baseline so he will continue to monitor as
outpatient. Pulmonary cleared him for discharge today. No other events were noticed. Patient will be discharged in relatively stable condition today.
Discharge duration: 35 minutes
Discharge Plan
-
Patient Disposition: Home with Home Care
Discharge Diagnosis/Procedures: Acute on chronic systolic congestive heart failure. Right pleural effusion. Permanent atrial fibrillation. Chronic kidney disease.
Diet: Low Cholesterol, 2 Gram Sodium and Restrict fluids to 48 oz
Blood Work: Please PCP to order CBC, BMP within 1 week
Specialty Instructions: Weigh Daily- Call MD for wt gain/loss 3 lbs overnight/5 lbs in 1 week
Instructions: *[facility] Heart Failure Instructions
Referrals:
Glory Almanzar MD [Active] - in two to four weeks
Maile Gutierres, [Family Provider] - in less than 1 week
Kathleen Douglas PA-C [Specified Professional Personl] - 10/02/24 9:00 am (You have a follow up visit with Dr. Benjamin's PA, Kathleen Douglas, at the [facility]. Please call with questions. )
Prescriptions:
Continued
atorvastatin 10 MG tablet
10 mg PO QPM
doxazosin 4 mg Tablet
4 mg PO QPM
coenzyme Q10 [Co Q-10] 100 mg Capsule
100 mg PO Q48H
Eliquis 2.5 mg Tablet
2.5 mg PO BID
isosorbide mononitrate 30 mg tablet extended release 24 hr
30 mg PO DAILY
hydralazine 50 mg Tablet
50 mg PO BID
furosemide 80 mg tablet
80 mg PO DAILY
Jardiance 10 mg tablet
10 mg PO DAILY
metoprolol succinate 100 mg Tablet Extended Release 24 Hr
100 mg PO BID
therapeutic multivitamin Tablet
1 tab PO Q48H
digoxin 62.5 mcg (0.0625 mg) Tablet
62.5 mcg PO DAILY@1200
Discharge Orders:
Discharge Patient (As Directed); Ordered 09/21/24
Ordered By: Milad Tapia
Discharge Date and Time
Discharge Date/Time: 09/21/24 14:17
Print Language: SPANISH
--- NOTE | 2024-09-21 12:30 | CM ---
Patient is stable for d/c today. Per chart, patient is set up w/ [facility].
Met w/ patient bedside, agreeable to d/c, patient's friend will transport
IMM reviewed, copy given, copy placed on chart
Plan: Home w/ [facility]
--- NOTE | 2024-09-21 14:40 | W.PN.PUL3 ---
Today's Communication / Plan
-
Placed onto Ventimask yesterday due to new left apical pneumothorax
CXR last night and this morning shows resolved left-sided pneumothorax
Patient is stable for discharge from pulmonary perspective
Outpatient pulmonary office follow-up will be arranged
No additional recommendations at this time. Pulmonary service will now sign off. Please reconsult if there are any additional questions/concerns, or if patient's respiratory status deteriorates.
Assessment
-
Patient is an 84-year-old male with previous history of heart failure with reduced ejection fraction, chronic kidney disease, A-fib presenting to the emergency room with complaints of shortness of breath. This has progressively worsened over the
past several days. Chest x-ray demonstrated right pleural effusion. Underwent thoracentesis with subsequent hydropneumothorax. We were consulted on 09/19/2024.
Recurrent right pleural effusion-s/p thoracentesis. Present since at least 03/[address] chest 09/17/2024: Moderate right pleural effusion. Severe emphysema. Similar to March 2023. Few scattered tiny pulmonary nodules predominantly stable. Tiny left pleural effusion.
L sided hydropneumothorax
S/p L chest tube 04/14/23-that pleural effusion negative for cytology or cultures.
-
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
Per [facility] seen by Dr. Almanzar 09/26/2023: PFT 09/26/2023: Mild airflow obstruction. Air-trapping. Severely decreased diffusion capacity.
Not on inhalers due to the patient not complaining of shortness of breath.
Elevated proBNP
Conditions present SURGICAL ASSISTANT:
Admitted to [facility] with acute exacerbation of heart failure 08/30/2024
Admitted to [facility] with left pleural effusion status post chest tube 03/2022-negative cytology. Negative cultures. 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
Former smoker 40 pack years, quit 20 years ago
Aortic atherosclerosis� �
[id number] mitral regurgitation� �
Permanent atrial fibrillation� �
History of asbestos exposure
Works for [employer] for many years.
Hypercholesterolemia� �
Myalgia� �
Mild aortic insufficiency� �
Chronic HFrEF�40%
Moderate PH on ECHO
History of C diff� �
Hernia repair
Vasectomy
Hospitalization History� �
DH-ER FALL 02/2020� �
ER Hypertension� � 09/10/22� �
acute HFmrEF, BANDAR on CKD� � 10/22/22� �
HF, BANDAR on CKD� � 11/15-11/20/2022� �
CHF, SOB� � 01/08-01/11/2023� �
Plan
-
Chronic bilateral pleural effusions: Multifactorial CHF/CKD-
This time right greater than left.
-
Patient currently asymptomatic, not on oxygen supplementation
Denies shortness of breath. Feels better.
-
Right thoracentesis 09/17/2024: 7.39/WBC 609/91% mononuclears/8% polymorphs/total protein 2.4.--Exudate>
Chest x-ray 09/19/2024 reviewed, this morning showed hydropneumothorax. Suspect this is a chronic problem. Present since at least 2022.
It is noted that he followed up up in our office with Dr. Almanzar in September 2023 he was recommended to repeat a CAT scan but he never followed through.
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
Doubt iatrogenic pneumothorax.
-
Prior history of lung disease is noted including asbestosis, former smoker/emphysema.
Mild airflow obstruction-not on inhalers.
He has never had a pneumothorax in the past, denies any chest trauma.
He also denies any other known triggers including coughing spells.
He is a former smoker quit 20 years ago. Total use of 40 pack years.
Prior asbestos exposure
Chronic left pleural effusion. 03/2023. Prior history.
CXR- L hydroptx s/p chest tube 03/2023
L PF: Gstain negative, culture negative at 72h on 04-17, wbc with M61.6%, LDH ratio 0.71, prot ratio 0.43, incomplete set of PF testing but overall most likely exudative PF
L PF cytology negative
L chest tube placed 04-14, mgmt by Juanis
On this CAT scan 09/17/2024 patient has no significant left hydropneumothorax. Small left pleural effusion.
-
Plan:
Continue with p.o. Lasix 80 mg daily
-
Chest x-ray 09/19/2024: Stable right hydropneumothorax compared to prior post-thoracentesis.
CXR on morning of 09/20/2024 showed a new small left apical pneumothorax --> patient placed onto Ventimask at 55% FiO2, and repeat CXR later in the afternoon showed resolved left-sided PTX
CXR from this morning on 09/21 also shows continued resolution of left-sided pneumothorax
Okay to remove patient from oxygen and he is cleared to go home from pulmonary perspective
Home oxygen assessment prior to discharge
-
Patient will need to follow-up in the outpatient setting for further direction depending on symptoms.
This may include VATS/Pleurx etc. depending on his symptoms.
I strongly advised To make a follow-up appointment in our office
-
Will follow fluid cytology-cultures from thoracentesis on 09/17/2024
-
Dr. Horan updated daughter over the phone 09/19/2024.
.
Discussed with primary team.
Patient will follow-up with us in the office.
I answered all the patient's questions today.
No additional recommendations at this time. Pulmonary service will now sign off. Thank you for allowing us to be involved in the care of this patient. Please reconsult if there are any additional questions/concerns, or if patient's respiratory
status deteriorates.

Diagnostic Data
CXR 04-17: drained L PF, L chest tube in place. Small R PF
CXR 04-16 and : portable, lordotic, slightly rotated and underpenetrated, L chest tube in (low) position and with resolved L PF. Small R PF, R basilar linear atelectasis
Chest X-Ray: 04/15/23- 1. � SMALL LEFT HYDROPNEUMOTHORAX involving less than 10% of the lung volume.
2. � Left pigtail pleural catheter projecting over the left upper quadrant of the abdomen (possibly in the left posterior inferior pleural space).
3. � Large amount of bilateral lower lobe airspace opacity which could be atelectasis or pneumonia.
4. � Small to moderate-sized right pleural effusion.
-
CT chest 09/17/2024: Reviewed,
Moderate right pleural effusion, somewhat similar to March 2023. Chronic right lower lobe consolidation. Few scattered tiny pulmonary nodules. Tiny left pleural effusion with left lower lobe subsegmental atelectasis. Emphysema.
Chest CT s/c 04-15-23:
Comparison examination: 04/15/2023 chest x-ray
FINDINGS:
There is less than 10% left-sided pneumothorax located at the anterior aspect in this supine patient had best seen on series 297 series 205, sagittal image 68 and coronal image 38.
The tip of a pigtail drainage catheter is at the posterior lateral left lung base.
There are extensive emphysematous changes throughout both lungs most prominent in the upper lobes consistent with centrilobular emphysema
There is moderate-sized right pleural effusion with associated compressive atelectasis at the right lung base.
There is moderate acute versus chronic acinar airspace disease with associated bronchiectasis throughout the left lower lobe.
There is mild cardiomegaly.
There is no pulmonary edema
There is vascular calcification including coronary artery calcification and aortic valvular calcification indicating atherosclerosis
There is no mediastinal lymphadenopathy.
Imaging obtained into the upper abdomen demonstrates moderate right-sided renal cortical atrophy Acinar airspace disease with associated bronchiectasis in the left lower lobe
IMPRESSION:
1.). Less than 10% left-sided pneumothorax despite the presence of left-sided chest tube with its tip at the posterior lateral left lung base.
2). Extensive centrilobular emphysema
3).There is moderate acute versus chronic acinar airspace disease with associated bronchiectasis throughout the left lower lobe.
4). Mild cardiomegaly without associated pulmonary edema
TTE 04-16-23
CONCLUSIONS
1. Borderline dilated left ventricle with global hypokinesis and septal straightening, EF 25-30%
2. Mitral annular calcification with thickened leaflets, moderate mitral regurgitation and dilated left atrium
3. Aortic sclerosis with mild aortic regurgitation
4. Normal right heart with normal pulmonary artery pressure
5. Pleural effusions identified
In October of this year the ejection fraction was 40%. The pulmonary artery systolic pressure was 49 mmHg. Otherwise the 2 studies are similar.
10/23/22 Echo: Mildly dilated left ventricle. Normal left ventricular wall thickness. �Moderately reduced left ventricular systolic function. Left ventricular�ejection fraction is 40% by Nunez's method of discs. Global hypokinesis.�Diastolic
function indeterminate due to atrial fibrillation.�Mitral valve opens normally. Mitral annular calcification. Moderate mitral�regurgitation.�Moderately dilated left atrium. Indexed LA volume is moderately abnormal (42-48�mL/m2).�Trileaflet aortic
valve. Aortic valve opens normally. Mild aortic�regurgitation.�Tricuspid valve opens normally.� Moderate tricuspid regurgitation. Estimated�pulmonary artery pressure of 49 mmHg assuming a right atrial pressure of 3�mmHg.�Mildly dilated right
atrium.�Normal right ventricular size and function.�Pleural effusion present.�Since echocardiogram March 2021, left ventricle is now mildly dilated and�ejection fraction is decreased from 45-50% to 40%.� MR has worsened to moderate�and pleural
effusion is noted.
Total time spent today was 36 minutes for this encounter. Time includes reviewing laboratory test/imaging results, reviewing pertinent medical records, obtaining and reviewing medical history, performing an appropriate exam, ordering medications,
tests and procedures. Time also includes documentation of this encounter, coordinating patient care and communicating with other healthcare professionals. Total time does not include separately billed tests performed on this date of service.
Subjective Data
-
Date of Service:
Date of Service: September 21, 2024
Chief Complaint: Pulmonary Follow Up
Subjective:
Patient seen and evaluated today at bedside. Currently on 4 L/min nasal cannula. Denies shortness of breath or chest pain. Chest x-ray at today shows resolved left-sided pneumothorax. He is eager to go home. Denies DESAI, nausea, fevers or chills.
Review of Systems
General: Other (Negative unless mentioned above)
Objective Data
Data Reviewed
Vital Signs / I&O / Oxygen:
Vital Signs
Temp Pulse Resp BP Pulse Ox
97.4 F 56 18 156/59 99
09/21/24 08:10 09/21/24 08:10 09/21/24 08:10 09/21/24 08:10 09/21/24 08:10
Intake and Output
09/20/24 09/21/24 09/22/24
06:59 06:59 06:59
Intake Total 600 / 600 420 / 420
Output Total 350 / 350 700 / 700
Balance 250 / 250 -280 / -280
SaO2 99
Nasal Cannula flow liters per 96
minute
Physical Exam
General: Respiratory Distress (negative), Comfortable, Chills (negative) and Sweats (negative)
HEENT: Normocephalic and Anicteric
Cardiovascular: S1-S2 and Peripheral Edema (negative)
Respiratory: Wheeze (negative), Crackles (negative), Rhonchi (negative), Non-Labored Respirations, Stridor (negative) and Other (Diminished breath sounds bilaterally)
GI: Soft, Non Distended, Non Tender and Normal Bowel Sounds
Neurology: Awake, Alert and Tremors (negative)
Skin: Warm, Dry, Cyanosis (negative) and Jaundice (negative)
Labs/Micro/Reports
Lab Data
09/21/24 06:05
09/21/24 06:05
Microbiology
09/17/24 13:43 Pleural Fluid Body Fluid Culture - Final
No Growth After 72 Hours
09/17/24 13:43 Pleural Fluid Gram Stain - Final
== END 2024-09-21 14:17 | disposition home health service (06) | DRG 291 ==
LOC: 4 EAST ACU 11:03
PROVIDERS: Physician Assistant; Radiology Vascular & Interventional Radiology; Student in an Organized Health Care Education/Training Program; ADMITTING PHYSICIAN Hospitalist; CONSULT PHYSICIAN Internal Medicine Critical Care Medicine; CONSULT PHYSICIAN Thoracic Surgery (Cardiothoracic Vascular Surgery); EMERGENCY PHYSICIAN Emergency Medicine; FAMILY PHYSICIAN Family Medicine; OTHER PHYSICIAN Internal Medicine Cardiovascular Disease
PROC: 0W993ZZ Drainage of Right Pleural Cavity, Percutaneous Approach (ICD-10-PCS; 2024-09-17)
DX: I13.0 Hypertensive heart and chronic kidney disease with heart failure and stage 1 through stage 4 chronic kidney disease, or unspecified chronic kidney disease (principal); I50.23 Acute on chronic systolic (congestive) heart failure; N18.4 Chronic kidney disease, stage 4 (severe); I48.21 Permanent atrial fibrillation; J84.9 Interstitial pulmonary disease, unspecified; J93.9 Pneumothorax, unspecified; R63.4 Abnormal weight loss; E78.00 Pure hypercholesterolemia, unspecified; K21.9 Gastro-esophageal reflux disease without esophagitis; E86.0 Dehydration; R35.1 Nocturia; I42.9 Cardiomyopathy, unspecified; I44.7 Left bundle-branch block, unspecified; R06.89 Other abnormalities of breathing; I08.3 Combined rheumatic disorders of mitral, aortic and tricuspid valves; J94.1 Fibrothorax; I27.20 Pulmonary hypertension, unspecified; J43.2 Centrilobular emphysema; Z77.090 Contact with and (suspected) exposure to asbestos; Z66 Do not resuscitate; Z60.2 Problems related to living alone; Z63.4 Disappearance and death of family member; Z87.01 Personal history of pneumonia (recurrent); Z86.19 Personal history of other infectious and parasitic diseases; Z87.891 Personal history of nicotine dependence; Z68.20 Body mass index [BMI] 20.0-20.9, adult; Z79.01 Long term (current) use of anticoagulants; Z82.49 Family history of ischemic heart disease and other diseases of the circulatory system; Z79.84 Long term (current) use of oral hypoglycemic drugs
CPT/HCPCS: 88305; 32555; 71045; 71046; 71250; 80048; 80053; 80162; 83880; 83986; 84157; 84484; 85025; 85027; 85610; 87015; 87070; 87205; 88112; 89051; 93005; 93306; 96374; 97161; 99285

== ENCOUNTER → 2024-10-20 13:40 | Outpatient (REF) | payer MEDICARE, SELFPAY | LOC: RAD 13:40 | PROVIDERS: ATTENDING PHYSICIAN Nurse Practitioner Family; FAMILY PHYSICIAN Family Medicine | DX: J90 Pleural effusion, not elsewhere classified (principal); J94.8 Other specified pleural conditions | CPT/HCPCS: 71046 ==

== ENCOUNTER 2025-01-18 00:34 | Inpatient (IN) | payer MEDICARE, SELFPAY ==
[2025-01-17 21:49] VITALS: BP 110/58
[2025-01-17 22:16] LABS: Hematocrit 48.0 % (39.0-52.0); Hemoglobin 15.6 g/dL (13.0-18.0); Mean Corp Hgb Conc. 32.5 g/dL (33.0-37.0); Mean Corpuscular Volume 81.2 fL (80.0-94.0); Nucleated Red Blood Cells % 0 % (-); Platelet Count 447 10^3/uL (130-400); Red Cell Dist. Width 17.2 % (11.5-14.5)
[2025-01-17 22:37] LABS: ALT (SGPT) 21 U/L (0-50); AST (SGOT) 23 U/L (17-59); Albumin 4.0 g/dl (3.5-5.0); Alkaline Phosphatase 62 U/L (38-126); Blood Urea Nitrogen 42 mg/dl (9-20); Calcium 8.9 mg/dl (8.4-10.2); Carbon Dioxide 31 mmol/L (22-30); Chloride 106 mmol/L (98-107); Glucose 104 mg/dl (70-99); Potassium 4.2 mmol/L (3.5-5.1); Sodium 144 mmol/L (135-145); Total Protein 6.7 g/dl (6.3-8.2); eGFR 39.51
[2025-01-17 22:41] LABS: Troponin I 0.033 ng/ml
[2025-01-17 22:51] VITALS: BP 119/49
[2025-01-17 23:05] VITALS: BP 133/51
--- NOTE | 2025-01-17 23:30 | ED.GENMED ---
History of Present Illness
General
Chief Complaint: Breathing Problem
Source: patient, records and ambulance crew
Exam Limitations: none
Time Seen by Provider: 01/17/25 22:45
Nursing documentation reviewed up to this point in time: agreed with
History of Present Illness
History of Present Illness:
84-year-old male with a past medical history of hypertension, hyperlipidemia, CHF, atrial fibrillation, GERD, BPH who presents to the emergency department for evaluation of shortness of breath. Patient reports symptoms have been progressive over
the past 3 to 4 weeks, today were significantly worse which prompted him to call EMS. He reports constant shortness of breath but much worse with even light exertion. He reports mild nonproductive cough. Denies any swelling in the legs. He
denies any chest pain. He reports he had similar symptoms from CHF in the past. He is on Lasix 80 mg daily and reports compliance. He follows with Dr. Que Benjamin for cardiology. Chart review shows that he presented with CHF in late August and
had large pleural effusion which required thoracentesis, subsequently found to have trapped lung on the right and small pneumothorax which was stable on observation with serial x-rays.
Past History
Past History
ED Past Medical History: Arrthythmia (afib), CHF, GERD, HTN, Hypercholesterolemia, Renal failure and Other (PNA, C-diff)
ED Past Surgical History: Appendectomy and Other (Hernia repair)
Patient has exhibited threatening behavior?: No
PSI?: No
Social History
Tobacco: Former smoker
Alcohol: Occasional
Drug: None
Personal:
Living: with family
Employment: Retired
Family History
Family History: Other (Noncontributory)
Review of Systems
Review of Systems
All Other Systems: ROS reviewed and negative except as documented in HPI and ROS
Constitutional: Denies fever or chills
Respiratory: Reports cough and trouble breathing
Cardiac: Denies chest pain or palpitations
ABD/GI: Denies abdominal pain, nausea or vomiting
: Denies flank pain
Musculoskeletal: Denies edema
Neurological: Denies dizzy or headache
Phy Exam
Physical Exam
Physical Exam:
General: Awake, alert, oriented x3; no acute distress
Head: Normocephalic, atraumatic
Eyes: Conjunctiva normal, sclera anicteric
Throat: Airway intact, handling secretions
Neck: Trachea midline, positive JVD noted
Lungs: Mild tachypnea, no hypoxia; patient has diminished breath sounds at the right lung base
Heart: Regular rate and rhythm, no murmurs, gallops, or rubs appreciated
Abd: Soft, non distended, nontender
Neuro: No gross deficits
Extremities: Trace edema around the ankles; equal pulses in all extremities
Scores
Heart Failure Risk
Heart Failure Risk Score: Yes
History of Stroke or TIA: No
History of intubation for respiratory distress: No
Heart rate on ED arrival >/= 110: No
SaO2 <90% on arrival on room air: No
HR >/=110 during 3min walk test (or too ill to perform test): No
ECG has acute ischemic changes: No
Urea >/=12mmol/L (BUN 33.6mg/dL): Yes
Serum CO2>/=35mmol/L: No
Troponin I or T elevated to OR Level (0.4mg/dL): No
NT-proBNP >/=5,000ng/L (5,000pg/ml): Yes
HF Risk Score: 2
Admission Status: MEDIUM RISK 9.2% Consider observation or discharge to home with homecare & f/u visit to PCP/[facility], or SNF for treatment
Heart Score for Chest Pain Patients
STEMI patient?: Not applicable
Withdrawal Assessment of Alcohol
Withdrawal Assessment Completed?: Not applicable
Course
Orders/Labs/Results
Orders:
Orders
01/17/25 21:48
Electrocardiogram (*1) Urgent
Reason for Study: Other
Other Reason for Exam: Respiratory Distress
Cardiac Monitoring- Treatment ONCE
EKG- Treatment ONCE
IV Insert/Care/Rem.- Treatment PRN
CR Chest - 2 Views Urgent
Comment:
Reason For Exam: respiratory distress
O2 Therapy [RESP] Urgent
Titrate/Wean O2 to maintain O2 sat greater than (%): 93
Special Instructions: TO MAINTAIN CONTINUOUS O2 SATS >/= 93%
Pulse Ox/cont/shift [RESP] Urgent
Quantity: 1
Special Instructions: continuous pulse ox
01/17/25 22:05
Complete Blood Count/With Diff Urgent
Comprehensive Metabolic Panel Urgent
NT-proBNP Urgent
Troponin I Urgent
01/17/25 23:28
Furosemide [Lasix] 80 mg IV NOW STA
Abnormal Lab Results
01/17/25
22:05
MCH 26.4 L pg
(27.0-31.0)
MCHC 32.5 L g/dL
(33.0-37.0)
RDW 17.2 H %
(11.5-14.5)
Plt Count 447 H 10^3/uL
(130-400)
Absolute Neuts (auto) 6.8 H 10^3/uL
(1.4-6.5)
Absolute Lymphs (auto) 0.5 L 10^3/uL
(1.2-3.4)
Absolute Monos (auto) 0.7 H 10^3/uL
(0.1-0.6)
Neutrophils % 83.7 H %
(42.2-75.2)
Lymphocytes % 6.1 L %
(20.5-51.1)
Carbon Dioxide 31 H mmol/L
(22-30)
BUN 42 H mg/dl
(9-20)
Creatinine 1.7 H mg/dL
(0.7-1.3)
Glucose 104 H mg/dl
(70-99)
01/17/25 22:05
01/17/25 22:05
Vital Signs
Initial and Last Documented VS:
Initial Vital Signs
Temp Pulse Resp BP Pulse Ox
36.4 C 60 24 110/58 95
01/17/25 21:49 01/17/25 21:49 01/17/25 21:49 01/17/25 21:49 01/17/25 21:49
Last Documented Vital Signs
Temp Pulse Resp BP Pulse Ox
36.4 C 54 28 133/51 97
01/17/25 21:49 01/17/25 23:15 01/17/25 23:15 01/17/25 23:05 01/17/25 23:15
MDM/Problems Addressed
Differential Diagnosis Includes:
CHF, pleural effusion, pneumothorax
MDM/Problems Addressed:
84-year-old male presents for evaluation of progressive shortness of breath particular with exertion over the past few weeks significantly worse today. Vitals were significant for tachypnea but no hypoxia. Heart rate and blood pressure acceptable.
Physical exam as documented. He had lab work sent in triage including a CBC which showed no significant anemia, CMP which showed stable CKD. His troponin is negative�denies any chest pain. His proBNP is markedly elevated at 12,000. Chest x-ray
reviewed by me shows large right pleural effusion. Overall clinical picture seems consistent with CHF and right pleural effusion as cause for his symptoms. Will plan to treat with IV Lasix. Will plan to admit for continued management. Discussed
case with hospitalist.
Chronic conditions affecting care:
CHF
*Pulse Oximetry
SaO2: 97
Oxygen Mode of Delivery: Room air
Patient hypoxic: no (97%)
*EKG
Interpreted by ED Provider?: Yes
Heart Rate: 63
Rate: normal
Rhythm: a-fib
Ros[place]y: left axis deviation
Interval: normal interval
QRS Pattern: wide non-specific and left vent hypertrophy
Ischemia: no ischemia
*Critical Care Note
Total Time (30-74mins, 75-104mins- exclusive of procedures): Not Applicable
Data Reviewed
Review of Other/Old Records Reveals: Labs, Records and Radiology Studies
Source: patient, records and ambulance crew
Patient Management
Discussion with other providers: Hospitalist (Discussed with hospitalist)
Escalation/DeEscalation of care consider admission/obs:
Admission indicated
ED Attending Note
-
Portions of this chart may have been created with voice recognition software.� Occasional wrong word or��sound alike� substitutions may have occurred due to the inherent limitations of voice recognition software.
Discharge Plan
Departure
Patient Disposition: Admit
Date of Disposition: 01/17/25
Time of Disposition: 23:28
Admit to doctor: Valdemar
Presentation/result/management discussed w/ accepting MD/DO: Hospitalist
Discharge Problem:
CHF (congestive heart failure), Pleural effusion, right
Prescriptions:
No Action
atorvastatin 10 MG tablet
10 mg PO QPM
doxazosin 4 mg Tablet
4 mg PO QPM
coenzyme Q10 [Co Q-10] 100 mg Capsule
100 mg PO Q48H
Eliquis 2.5 mg Tablet
2.5 mg PO BID
isosorbide mononitrate 30 mg tablet extended release 24 hr
30 mg PO DAILY
hydralazine 50 mg Tablet
50 mg PO BID
furosemide 80 mg tablet
80 mg PO DAILY
Jardiance 10 mg tablet
10 mg PO DAILY
metoprolol succinate 100 mg Tablet Extended Release 24 Hr
100 mg PO BID
therapeutic multivitamin Tablet
1 tab PO Q48H
digoxin 62.5 mcg (0.0625 mg) Tablet
62.5 mcg PO DAILY@1200
Referrals:
Maile Gutierres DO [Family Provider, Family Practice]
Interventions
Interventions:
*Risk Screen - Suicide Last Done: 01/17/25 21:49
*General Assessment Last Done: 01/17/25 21:49
*Neglect/Abuse Screening Last Done: 01/17/25 21:49
*ED- Fall Risk Assessment Last Done: 01/17/25 21:49
*ED COVID-19 Vaccine History Last Done: 01/17/25 21:49
ED- Cardiac Assessment Last Done: 01/17/25 22:52
ED- Pulmonary Assessment Last Done: 01/17/25 22:52
Discharge Date and Time
Print Language: TUNISIAN
[2025-01-17 23:38] VITALS: BP 130/47
[2025-01-17] MEDS: LASIX 80 MG IV (23:39)
[2025-01-18] VITALS (9 sets, daily range): BP systolic 123–153; BP diastolic 52–74
--- NOTE | 2025-01-18 00:11 | HPS.HSE ---
Family Physician
-
Family Physician: Maile Gutierres
Chief Complaint
-
SOB
History of Present Illness
Patient is an 84y F with PMH significant for A-Fib, CHF and hypertension who presents to ED complaining of SOB. Patient reports gradually progressive SOB over the past 2-3 weeks. He felt significantly more dyspneic today and presented to the ED
for further evaluation. He denies any chest pain, but complains of sense of tightness / discomfort. He denies any cough, fevers / chills, etc. Patient states that he has had similar symptoms in the past with 'fluid in my lungs'. He states that
he has been compliant with his med regimen including his diuretics. He states that his weight at home has been stable.
Only recent med change was increase in hydralazine from BID to TID about one week ago.
Patient was admitted here in August with CHF and R pleural effusion. Thoracentesis was performed with resultant R base pneumothorax / 'trapped lung'. Follow-up CXR about one month later showed no significant change.
Medical History
Past Medical History
Past Medical History: Reports Other
Additional Past Medical History:
Atrial Fibrillation
Hypertension
CKD III
Chronic HFrEF
Mitral Regurgitation
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
Past Surgical History: Reports Other
Additional Past Surgical History:
Hernia Repair
Appendectomy
Social History
Tobacco: Former Smoker (Quit smoking 25 years ago. Approx 40 pack years total use.)
Alcohol: Occasional
Drug: None
Personal:
Family History
Family History: Not pertinent
Allergies / Home Medications
Allergies reflects when Allergies were last updated in [facility].
Home Medications with original date entered in [facility]
Allergy/Medication List:
Allergies
Allergy/AdvReac Type Severity Reaction Status Date / Time
No Known Allergies Allergy Verified 01/17/25 21:48
Home Medications
atorvastatin 10 mg tablet 10 mg PO QPM High cholesterol 12/26/19
apixaban 2.5 mg tablet (Eliquis) 2.5 mg PO BID Blood clot prevention/tx 10/22/22
coenzyme Q10 100 mg capsule (Co Q-10) 100 mg PO Q48H Supplement 10/22/22
doxazosin 4 mg tablet 4 mg PO QPM Urinary issue 10/22/22
isosorbide mononitrate 30 mg tablet,extended release 24 hr 30 mg PO DAILY Heart disease/condition 11/15/22
hydralazine 50 mg tablet 50 mg PO TID Blood Pressure 01/08/23
furosemide 80 mg tablet 80 mg PO DAILY Fluid Retention/Swelling 07/30/23
empagliflozin 10 mg tablet (Jardiance) 10 mg PO DAILY Heart Failure 08/28/23
digoxin 62.5 mcg (0.0625 mg) tablet 62.5 mcg PO DAILY@1200 Heart Disease/Condition 09/17/24
metoprolol succinate 100 mg tablet,extended release 24 hr 100 mg PO BID Heart Disease/Condition 09/17/24
therapeutic multivitamin 1 tab PO Q48H Supplement 09/17/24
Review of Systems
-
History Source: Patient
A 12 point ROS was completed and negative except as noted: Yes
Constitutional: Reports Fatigue; Denies Fever, Weight Gain, Weight Loss or Chills
Respiratory: Reports Trouble Breathing; Denies Cough
Cardiac: Denies Chest Pain, Diaphoresis or Palpitations
Abdomen/GI: Denies Abdominal Pain, Nausea, Vomiting or Diarrhea
: Denies Dysuria or Frequency
Musculoskeletal: Denies Joint Pain or Edema
Neurological: Denies Dizzy or Headache
Physical Exam
Vital Signs
Vital Signs
Temp Pulse Resp BP Pulse Ox
97.5 F 58 21 130/47 95
01/17/25 21:49 01/18/25 00:00 01/18/25 00:00 01/17/25 23:39 01/18/25 00:00
Physical Exam
General: Other (84y M in no acute distress.)
HEENT: Moist mucous membranes, PERRLA and Other (No JVD / HJR.)
Respiratory: Other (Decreased BS at R base - otherwise clear.)
Cardiac: S1/S2, Irregular Rhythm, Bradycardia and Murmur (II/ CAMPOS)
GI: Soft, Non Tender, Non Distended and Normal Bowel Sounds
Musculoskeletal: No Clubbing, No Cyanosis and No Edema
Neuro: AO x 3
Laboratory Results
-
01/17/25 22:05
01/17/25 22:05
Laboratory Results
Total Bilirubin 1.1 mg/dl (0.2-1.3) 01/17/25 22:05
AST 23 U/L (17-59) 01/17/25 22:05
ALT 21 U/L (0-50) 01/17/25 22:05
Alkaline Phosphatase 62 U/L (38-126) 01/17/25 22:05
Troponin I 0.033 ng/ml 01/17/25 22:05
Impression/Plan
-
A/P: Patient is an 84y M with PMH significant for A-Fib, CHF and HTN who presents to ED complaining of progressive SOB x 2-3 weeks, worse today.
Acute on Chronic HFrEF
- Admit for further evaluation and treatment.
- ProBNP increased from prior - despite reported stable weight and no evident edema, etc noted on exam.
- Hospital weight increased from 64 - 70kg in the past 3 months.
- Patient complains of gradually progressive SHAH, orthopnea, etc c/w CHF.
- Change usual Lasix to IV and follow for clinical response.
- Continue Jardiance.
- Last echo in 08/2024 with LVEF = 40-45%, moderate MR/TR.
- Cardiology evaluation for additional recommendations.
Left Hydropneumothorax
- CXR with reaccumulation of pleural effusion on the R.
- Not clear that thoracentesis would be of great benefit given previous demonstration of trapped lung physiology.
- No significant lung expansion following prior thoracentesis.
- Will ask Pulmonary to evaluate for additional recommendations.
- ? CT Surgery evaluation for VATS / decortication / etc?
Permanent Atrial Fibrillation
Bradycardia
- Heart rates in the ED occasionally into the 30s with pauses.
- Hold digoxin for now. Decrease metoprolol to 50mg BID.
- Monitor on telemetry and adjust medications as needed.
- Cardiology evaluation as noted above.
Benign Hypertension
- Stable. Continue current multidrug regimen for HTN with holding parameters.
- Follow for changes concurrent with diuresis.
- Adjust medications as needed.
CKD III
- Stable. Renal function at / near known baseline.
- Follow for changes with diuresis, etc.
- Avoid hypotension, nephrotoxic agents, etc.
DVT Prophylaxis: SCDs while Eliquis on hold for possible thoracentesis / procedure.
Code Status: DNR
[2025-01-18 02:58] LABS: Troponin I 0.043 ng/ml
[2025-01-18] MEDS: LASIX 80 MG IV (07:49)
[2025-01-18] MEDS: APRESOLINE 50 MG PO ×3 (07:50→22:02)
[2025-01-18] MEDS: IMDUR (EXTENDED RELEASE) 30 MG PO (07:50)
[2025-01-18] MEDS: FARXIGA 10 MG PO (07:50)
[2025-01-18] MEDS: TOPROL XL 50 MG PO ×2 (07:51→19:34)
[2025-01-18 07:52] LABS: Hematocrit 46.0 % (39.0-52.0); Hemoglobin 15.1 g/dL (13.0-18.0); Mean Corp Hgb Conc. 32.8 g/dL (33.0-37.0); Mean Corpuscular Volume 81.3 fL (80.0-94.0); Platelet Count 406 10^3/uL (130-400); Red Cell Dist. Width 17.2 % (11.5-14.5)
[2025-01-18 08:15] LABS: Blood Urea Nitrogen 40 mg/dl (9-20); Calcium 8.6 mg/dl (8.4-10.2); Carbon Dioxide 31 mmol/L (22-30); Chloride 106 mmol/L (98-107); Glucose 94 mg/dl (70-99); Potassium 4.0 mmol/L (3.5-5.1); Sodium 143 mmol/L (135-145); eGFR 39.51
[2025-01-18 08:32] LABS: Troponin I 0.040 ng/ml
--- NOTE | 2025-01-18 08:47 | W.PN.HOSP.TC ---
Addendum entered and electronically signed by Ángel Baez MD 01/18/25 09:43:
CT chest jus t performed with extensive Rt sided pleural effusion.
Pt on Eliquis 2.5 mg bid for A. Fib, last dose was 01/17 evening. Will hold on resuming until seen by pulm in case plan to do any invasive testing. Will defer to cardio if/when should bridge with Heparin pending decision of pulmonary
Original Note:
Today's Communication/Plan
-
CT chest
Assessment / Plan
Assessment / Plan
A/P: Patient is an 84y M with PMH significant for A-Fib, CHF and HTN who presents to ED complaining of progressive SOB x 2-3 weeks, worse today.
Acute on Chronic HFrEF
- Admit for further evaluation and treatment.
- ProBNP increased from prior - despite reported stable weight and no evident edema, etc noted on exam.
- Hospital weight increased from 64 - 70kg in the past 3 months.
- Patient complains of gradually progressive SHAH, orthopnea, etc c/w CHF.
- Change usual Lasix to IV and follow for clinical response.
- Continue Jardiance.
- Last echo in 08/2024 with LVEF = 40-45%, moderate MR/TR.
- Cardiology evaluation for additional recommendations.
Hx of COPD
PFT 09/26/2023: Mild airflow obstruction. Air-trapping. Severely decreased diffusion capacity.
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
Left Hydropneumothorax
- CXR with reaccumulation of pleural effusion on the R.
- Not clear that thoracentesis would be of great benefit given previous demonstration of trapped lung physiology.
- No significant lung expansion following prior thoracentesis.
- Will ask Pulmonary to evaluate for additional recommendations.
- ? CT Surgery evaluation for VATS / decortication / etc?
Permanent Atrial Fibrillation
Bradycardia
- Heart rates in the ED occasionally into the 30s with pauses.
- Hold digoxin for now. Decrease metoprolol to 50mg BID.
- Monitor on telemetry and adjust medications as needed. HR this morning 70's on monitor
- Cardiology evaluation as noted above.
Benign Hypertension
- Stable. Continue current multidrug regimen for HTN with holding parameters.
- Follow for changes concurrent with diuresis.
- Adjust medications as needed.
CKD III
- Stable. Renal function at / near known baseline.
- Follow for changes with diuresis, etc.
- Avoid hypotension, nephrotoxic agents, etc.
DVT Prophylaxis: SCDs while Eliquis on hold for possible thoracentesis / procedure.
CT scan of chest as per discussion with Pulm
Code Status: DNR
Anticipated Discharge: > 48 hours
Subjective/Interval History
-
Date of Service: January 18, 2025
Sitting up, eating breakfast
Objective Data
-
Labs:
Laboratory Results
01/17/25 01/18/25
22:05 07:35
WBC 8.2 7.3
Hgb 15.6 15.1
Hct 48.0 46.0
Plt Count 447 H 406 H
Sodium 144 143
Potassium 4.2 4.0
Chloride 106 106
Carbon Dioxide 31 H 31 H
BUN 42 H 40 H
Creatinine 1.7 H 1.7 H
Glucose 104 H 94
Calcium 8.9 8.6
Total Bilirubin 1.1
AST 23
ALT 21
Alkaline Phosphatase 62
Vital Signs:
Vital Signs
Temp Pulse Resp BP Pulse Ox
97.8 F 68 16 147/60 95
01/18/25 07:13 01/18/25 07:51 01/18/25 07:13 01/18/25 07:51 01/18/25 07:13
I&O
01/17/25 01/18/25 01/19/25
06:59 06:59 06:59
Output Total 250 / 250
Balance -250 / -250
Review of Systems
-
History Source: Patient and Coordinated Provider
Constitutional: Denies Fever
EENT: Reports No Symptoms Reported
Respiratory: Reports Cough and Trouble Breathing
Cardiac: Denies Chest Pain
Genitourinary: Reports No Symptoms
Musculoskeletal: Reports No Symptoms
Physical Exam
-
General: Well Developed, Well Nourished (thin) and No Apparent Distress
HEENT: Normocephalic, Atraumatic and Moist Mucous Membranes
Respiratory: Wheezes (coarse wheeze on deep breaths with end expiratory rhonchi)
Cardiac: S1/S2 and Irregular Rhythm
GI: Soft, Nontender and Nondistended
Musculoskeletal: No Clubbing, No Cyanosis and No Edema
--- NOTE | 2025-01-18 10:31 | CON.PUL ---
Consultation
Consultation Request
Date/Time Consultation Requested: 01/18/2025 - 014
Date/Time Consultation Performed: 01/18/2025 - 954
Requesting Provider: Dr. Aldrich
Performing Provider: Dr. Lopes
Reason for Consultation: SOB/Right pleural effusion/COPD
Medical History
-
Chief Complaint: SOB
History of Present Illness:
84-year-old male with a past medical history of bullous emphysema, COPD, former tobacco smoker, asbestos exposure, pulmonary nodules, chronic HFrEF, A-fib on Eliquis, hypercholesterolemia, hypertension, postnasal drip, chronic right-sided pleural
effusion with trapped/entrapped lung with history of pneumothorax ex vacuo s/p thoracentesis (August 2024), valvular heart disease and history of C. difficile who presents with increasing SOB. Patient has been remaining active, walking 2000 steps
a day. Over the last 3 weeks his shortness of breath has been persistently worsening. Being in the heat has not been helping. Denies any recent leg or belly swelling. Denies a cough although he does clear his throat frequently and has had
postnasal drip for a few months. He denies any recent sick contacts. In the ER he was afebrile, pulse rate 60, respiratory rate 24, BP 110/58 and saturating 95% on room air. Pertinent labs show platelet count 447, absolute eosinophil count 100,
creatinine 1.7, glucose 104, proBNP 12,000, and troponin 0.033. CXR showed a moderate right and small left pleural effusion with bibasilar opacities. He was given 80 mg IV Lasix and admitted to the hospitalist service. Pulmonary service now
consulted for additional management/recommendations.
When I saw the patient, he was resting in bed in no acute distress. Still feels short of breath during exertion but is breathing comfortably at rest. Currently on room air, saturating 96% with heart rate 83 and BP 149/76. He currently denies DESAI,
chest pain, abdominal pain, nausea, vomiting, fevers or chills.
He was recently hospitalized here from 09/17 - 09/21/2024 and underwent thoracentesis on 09/17, removing 900 cc of serosanguineous transudative pleural fluid, with subsequent CXR showing a right-sided pneumothorax ex vacuo. CT surgery saw the patient
and declined him for decortication and recommended him to be evaluated at a tertiary care center. He follows with us in the [facility] office, with last visit 01/05/[address] Almanzar. At the time he was breathing well, given a prescription for
albuterol to be used as needed. A CXR was ordered for 02/20/2025. Discussion held regarding thoracic intervention for his right-sided trapped/entrapped lung however he was considered too high risk given his significant centrilobular bullous
emphysema. He is maintained on Eliquis and follows with cardiology (SOCORRO Benjamin). He was told to follow-up with us again in February 2025 for a repeat PFT + 6MWT.
PMHx: COPD/bullous panlobular emphysema, former tobacco smoker, asbestos exposure, pulmonary nodules, chronic HFrEF, permanent A-fib on Eliquis + digoxin, hypercholesterolemia, hypertension, history of pneumonia, history of right sided thoracentesis
with resultant pneumothorax ex vacuo (August 2024), myalgia, aortic insufficiency, mitral regurgitation, history of C. difficile
PSHx: Hernia repair, vasectomy
Past Medical History
Past Medical History: Other (Above as per HPI)
Past Surgical History: Other (Above as per HPI)
Social History
Tobacco: Former Smoker (11-maxk-rdvp history, quit in 2002)
Alcohol: Occasional (Glass of wine occasionally)
Drug: None
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
Family History
Family History: CAD (Mother + father), Hypertension (Mother) and Other (Father: Stroke)
Allergies / Home Medications
Allergies
Allergy/AdvReac Type Severity Reaction Status Date / Time
No Known Allergies Allergy Verified 01/17/25 21:48
Home Medications
�Medication �Instructions �Recorded �Confirmed �Last Taken �Type
atorvastatin 10 mg tablet 10 mg PO QPM High cholesterol 12/26/19 01/18/2509/16/25 History
apixaban 2.5 mg tablet (Eliquis) 2.5 mg PO BID Blood clot 10/22/22 01/18/25 09/16/24 History
prevention/tx
coenzyme Q10 100 mg capsule (Co 100 mg PO Q48H Supplement 10/22/22 01/18/25 09/16/24 History
Q-10)
doxazosin 4 mg tablet 4 mg PO QPM Urinary issue 10/22/22 01/18/25 09/16/24 History
isosorbide mononitrate 30 mg 30 mg PO DAILY Heart 11/15/22 01/18/25 09/16/24 History
tablet,extended release 24 hr disease/condition
hydralazine 50 mg tablet 50 mg PO TID Blood Pressure 01/08/23 01/18/25 09/16/24 History
furosemide 80 mg tablet 80 mg PO DAILY Fluid 07/30/23 01/18/25 09/16/24 History
Retention/Swelling
empagliflozin 10 mg tablet 10 mg PO DAILY Heart Failure 08/28/23 01/18/25 09/16/24 History
(Jardiance)
digoxin 62.5 mcg (0.0625 mg) tablet 62.5 mcg PO DAILY@1200 Heart 09/17/24 01/18/25 09/16/24 History
Disease/Condition
metoprolol succinate 100 mg 100 mg PO BID Heart 09/17/24 01/18/25 09/16/24 History
tablet,extended release 24 hr Disease/Condition
therapeutic multivitamin 1 tab PO Q48H Supplement 09/17/24 01/18/25 09/16/24 History
Review of Systems
-
History Source: Patient
All other systems: Negative unless noted
Vitals / Labs / Diagnostic Testing
Vital Signs
Temp Pulse Resp BP Pulse Ox
97.8 F 68 16 147/60 95
01/18/25 07:13 01/18/25 07:51 01/18/25 07:13 01/18/25 07:51 01/18/25 09:26
Lab Data
01/18/25 07:35
01/18/25 07:35
Diagnostic Testing:
Physical Exam
-
HEENT: Normocephalic, Anicteric and Moist Mucous Membranes
Cardiovascular: Irregular Rhythm and Peripheral Edema (negative)
Respiratory: Wheeze (negative), Rhonchi (negative), Non-Labored Respirations, Other (Coarse breath sounds heard bilaterally) and Other (Diminished breath sounds at right base)
GI: Soft, Non Distended, Non Tender and Normal Bowel Sounds
Neurology: Awake, Alert, Oriented and Tremors (negative)
Skin: Warm and Dry
General: Respiratory Distress (negative), Comfortable, Fever (negative) and Chills (negative)
Assessment
-
Assessment: 84-year-old male with a past medical history of bullous emphysema, COPD, former tobacco smoker, asbestos exposure, pulmonary nodules, chronic HFrEF, A-fib on Eliquis, hypercholesterolemia, hypertension, postnasal drip, chronic
right-sided pleural effusion with trapped/entrapped lung with history of pneumothorax ex vacuo s/p thoracentesis (August 2024), valvular heart disease and history of C. difficile who presents with increasing SOB. Patient has been remaining
active, walking 2000 steps a day. Over the last 3 weeks his shortness of breath has been persistently worsening. Being in the heat has not been helping. Denies any recent leg or belly swelling. Denies a cough although he does clear his throat
frequently and has had postnasal drip for a few months. He denies any recent sick contacts. In the ER he was afebrile, pulse rate 60, respiratory rate 24, BP 110/58 and saturating 95% on room air. Pertinent labs show platelet count 447, absolute
eosinophil count 100, creatinine 1.7, glucose 104, proBNP 12,000, and troponin 0.033. CXR showed a moderate right and small left pleural effusion with bibasilar opacities. He was given 80 mg IV Lasix and admitted to the hospitalist service.
Pulmonary service now consulted for additional management/recommendations.
Chronic conditions [employer]: COPD/bullous panlobular emphysema, former tobacco smoker, asbestos exposure, pulmonary nodules, chronic HFrEF, permanent A-fib on Eliquis + digoxin, hypercholesterolemia, hypertension, history of pneumonia, history of right
sided thoracentesis with resultant pneumothorax ex vacuo (August 2024), myalgia, aortic insufficiency, mitral regurgitation, history of C. difficile
Impression:
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
#Panlobular emphysema/COPD with mild persistent obstructive lung defect with air trapping + hyperinflation and severe gas exchange capacity defect via PFTs from 09/26/2023
#Recurrent right sided pleural effusion with calcification along pleural, indicating chronicity with fibrothorax
#Hx of right sided thoracentesis with pneumothorax ex vacuo (08/2024)
#Elevated troponin likely due to demand ischemia with type II KS (peaked at 0.043 on 01/18/2025
#CKD (baseline creatinine 1.7)
#Chronic thrombocytosis
#Former tobacco smoker (46-lwcr-resq history, quit around 2002)
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
#Subcentimeter pulmonary nodules (stable 6.5 mm nodule in the posterolateral left lower lobe, and appears more to be rounded atelectasis, and another stable 4mm nodule in lateral LLL)
#Chronic HFmrEF
#Permanent A-fib on Eliquis + digoxin
#Pulmonary hypertension with PASP 45-50 mmHg on last echo from 09/19/2024, predominantly group III > group II
Plan:
- Believe that his current SOB is due to an acute COPD exacerbation; he is not presenting volume overloaded despite having an elevated proBNP
- He is currently only on albuterol prn at home --> recommend to start Spiriva + striverdi, and upon dischagre he should be started on Anoro vs Stiolto; his absolute eos are <150, so do not think he would benefit from an inhaled steroid
- Will give a short, finite course of steroids with prednisone 40mg daily
- Maintain SpO2 88-95% with supplemental O2 as needed
- prn nebulized bronchodilators - not currently bronchospastic
- Right sided pleural effusion is similar in size to prior imaging dating back to 2022; he did undergo thoracentesis on 09/17/2024, but the fluid has recurred as patient has trapped/entrapped lung
- Continue IV lasix for now, but would only do short course and then resume his usual PO lasix dose
- On prior admission in August 2024, CT surgery evaluated him for definitive surgery but in the setting of his significant bullous centrilobular emphysema, he was considered high risk for bronchopleural fistula post decortication and was
recommended to be evaluated at a tertiary lung center; Dr Almanzar saw the pt recently earlier this month and felt that lung decortication would be too high risk of a surgery for this patient given the extent of his bullous emphysema and his age and
other co-morbidities
- Given that this effusion may be contributing to his SOB, recommend to consult IR for thoracentesis
- Be aware that he will have a R-sided pneumothorax post thoracentesis, and this is due to a pneumothorax ex vacuo as he has a trapped lung.
- proBNP is elevated at 12,000 and he has a history of labile BMP and values, however regardless he does not appear volume overloaded on exam
- Troponin peaked at 0.043 on 01/18/2025; no longer need to continue trending at this time
- Keep MAP>65
- HR control with goal <110
- Cardiology consulted and recs appreciated
- Continue metoprolol as HR tolerates
- Resume digoxin per recommendations from cardiology as he was initially bradycardic on admission
- Incentive spirometer encouraged q1hr while awake
- Replete electrolytes with K>4, Mg>2
- Trend H/H and transfuse if needed to keep Hb>7g/dL; keep plt>20k, unless there is concern for bleeding then keep plt>50k
- Maintain euglycemia with goal BG >100 and <180
- DVT ppx: on Eliquis at home; being held for thoracentesis; I consulted IR for thoracentesis, and Dr. Hoffman said Eliquis does not need to be held; defer resumption of NOAC to primary team
Recommend him to follow-up with our office following discharge as last visit with Dr. Almanzar was 01/05/2025
Pulmonary service will continue to follow along.
Data:
CT chest without contrast 01/18/2025: Severe emphysema; moderate right and small left pleural effusions. Opacities in the basilar right lower lobe are favored to represent round atelectasis.
Full PFT 09/26/2023:
Mild persistent obstructive lung defect with a positive, nonsignificant bronchodilator response. Post�bronchodilator FEV1: 2.82 L / 102% predicted. Mild hyperinflation with T%. Air trapping with RV: 137% predicted. Severe gas exchange
capacity defect which is mildly improved when accounting for alveolar volume involved in gas exchange (DLco: 37%, DLco/VA: 41%).
Transthoracic echocardiogram 09/19/2024:
Normal left ventricular chamber size. Mildly reduced left ventricular systolic
function. Left ventricular ejection fraction is 40-45%. Global hypokinesis.
Mild concentric left ventricular hypertrophy. Diastolic function indeterminate
due to atrial fibrillation.
Normal right ventricular size. Normal right ventricular systolic function.
Moderate mitral regurgitation.
Aortic sclerosis without stenosis. Mild to moderate aortic regurgitation.
Moderate tricuspid regurgitation. Estimated pulmonary artery pressure of 45-50
mmHg. Assuming a right atrial pressure of 3 mmHg.
Compared to prior study dated 08/29/2023, estimated PA systolic pressure was
previously higher at 70-75 mmHg.
Total time spent today was 57 minutes for this encounter. Time includes reviewing laboratory test/imaging results, reviewing pertinent medical records, obtaining and reviewing medical history, performing an appropriate exam, ordering medications,
tests and procedures. Time also includes documentation of this encounter, coordinating patient care and communicating with other healthcare professionals. Total time does not include separately billed tests performed on this date of service.
--- NOTE | 2025-01-18 12:12 | CON.CAR ---
Consultation
Consultation Request
Date/Time Consultation Requested: 01/18/25
Date/Time Consultation Performed: 01/18/25
Requesting Provider: Valdemar
Performing Provider: Cathleen
Reason for Consultation: CHF, bradycardia
Medical History
-
Chief Complaint: Shortness of breath
History of Present Illness:
84-year-old man past medical history of heart failure with reduced ejection fraction presenting with dyspnea found to be in acute heart failure
Patient tells me he has had several days of worsening dyspnea and noted orthopnea on the night of 01/16/2025. No significant edema or weight gain by his report. He presented to [facility] for evaluation and was found to be in acute heart failure. Not
hypoxic but chest x-ray showed recurrent right pleural effusion. proBNP elevated to 12,000.
Troponin trend 0.033, 0.043, 0.040. Not reporting any chest discomfort.
There was also concern for low heart rates while in the ED. Patient has permanent A-fib on metoprolol and digoxin and heart rates reportedly dropped into the 30s at times on telemetry. Patient is not reporting any presyncope or syncope to me.
PMHx:
HFrEF
Right-sided pleural effusion
s/p R thoracentesis w/ 900 cc serosanguineous fluid removed 09/17/2024h/o spontaneous left-sided hydropneumothorax with exudative fluid on cytology managed with chest tube and antibiotics 03/2023
Cardiomyopathy, EF 40-45%
CKD 3b
Permanent Afib
Chronic Eliquis OAC
HTN
Mild AR
Mod MR
Chronic LBBB
Hyperlipidemia
Palpable abdominal aorta -normal aortic ultrasound 11/2022
h/o C.diff
Past Medical History
Past Medical History: Other (As above)
Past Surgical History: Other (As above)
Social History
Tobacco: Former Smoker
Alcohol: Occasional
Personal:
Family History
Family History: Reviewed & Not Pertinent
Allergies / Home Medications
Allergy/AdvReac Type Severity Reaction Status Date / Time
No Known Allergies Allergy Verified 01/17/25 21:48
�Medication �Instructions �Recorded �Confirmed �Type
atorvastatin 10 mg tablet 10 mg PO QPM High cholesterol 12/26/19 01/18/25 History
apixaban 2.5 mg tablet (Eliquis) 2.5 mg PO BID Blood clot 10/22/22 01/18/25 History
prevention/tx
coenzyme Q10 100 mg capsule (Co 100 mg PO Q48H Supplement 10/22/22 01/18/25 History
Q-10)
doxazosin 4 mg tablet 4 mg PO QPM Urinary issue 10/22/22 01/18/25 History
isosorbide mononitrate 30 mg 30 mg PO DAILY Heart 11/15/22 01/18/25 History
tablet,extended release 24 hr disease/condition
hydralazine 50 mg tablet 50 mg PO TID Blood Pressure 01/08/23 01/18/25 History
furosemide 80 mg tablet 80 mg PO DAILY Fluid 07/30/23 01/18/25 History
Retention/Swelling
empagliflozin 10 mg tablet 10 mg PO DAILY Heart Failure 08/28/23 01/18/25 History
(Jardiance)
digoxin 62.5 mcg (0.0625 mg) tablet 62.5 mcg PO DAILY@1200 Heart 09/17/24 01/18/25 History
Disease/Condition
metoprolol succinate 100 mg 100 mg PO BID Heart 09/17/24 01/18/25 History
tablet,extended release 24 hr Disease/Condition
therapeutic multivitamin 1 tab PO Q48H Supplement 09/17/24 01/18/25 History
Review of Systems
-
History Source: Patient
All other systems: Negative unless noted
Physical Exam
Vital Signs
Temp Pulse Resp BP Pulse Ox
97.9 F 80 16 123/55 95
01/18/25 11:55 01/18/25 11:55 01/18/25 11:55 01/18/25 11:55 01/18/25 11:55
Lab Results
01/18/25 07:35
01/18/25 07:35
Troponin I 0.040 ng/ml H* 01/18/25 07:35
Yma-G-Zmepaqaposg Pept 78270 pg/ml 01/17/25 22:05
Physical Exam
General: Well Developed
HEENT: Normocephalic
Respiratory: Non Labored Respirations
Cardiac: S1/S2, Irregular Rhythm and JVD (Elevated JVP)
GI: Soft
Musculoskeletal: No Edema
Skin: Warm and Dry
Neuro: Awake and Alert
Psych: Calm
Impression / Plan
-
PCP: Dr. Gutierres
Cardiology: Dr. SOCORRO Benjamin
Nephrology: Dr. Lao
Impression:�
Presented with SOB
Acute on chronic HFrEF
Recurrence of right-sided pleural effusion
s/p R thoracentesis w/ 900 cc serosanguineous fluid removed 09/17/2024
Bradycardia
Cardiomyopathy, EF 40
CKD 3b
Permanent Afib
Chronic Eliquis OAC
HTN
Mild AR
Mod MR
Chronic LBBB
Hyperlipidemia
Palpable abdominal aorta -normal aortic ultrasound 11/2022
h/o C.diff
Lexiscan mibi 01/10/23: No evidence of ischemia
Echo 04/11/21: EF 45-50%, mild conc LVH, mild MR, mild aortic regurgitation
Echo 10/23/22: EF 40%, moderate MR, mild aortic regurgitation, mod TR with PASP 49 mmHg
Echo 04/16/23: Ejection fraction 25 to 30%, moderate MR, aortic sclerosis with mild AI, pleural effusions
Echo 05/18/23: EF 27% by volumetric assessment and 41% by Nunez
Echo 08/29/2023: EF 36-41%, stage I diastolic dysfunction, mild-mod MR, mild-mod AR, mild-mod TR, estimated PAP 60-70 mmHg
Plan:
-Presenting with shortness of breath found to be in acute heart failure with recurrent R pleural effusion
-Continue IV Lasix twice daily
-Consider IR evaluation for thoracentesis
-Follow daily weights, renal function and electrolytes
-Continue Imdur/hydralazine and SGLT2
-Decrease beta-elias dose for bradycardia
-Known permanent atrial fibrillation, on Eliquis 2.5mg BID.
-Found to be bradycardic on admission
-Toprol XL decreased and digoxin on hold
-Check dig level
-Monitor on telemetry
-Continue dose reduced Eliquis
Data Reviewed
-
EKG: Tracing Personally Visualized and interpreted
Radiology: Image Personally Visualized and interpreted
CT Scan: Report Reviewed by me
Medical Tests (Nuc Med, Echo etc): Report Reviewed by me
Labs: Labs Reviewed by me
[2025-01-18 13:05] LABS: Digoxin < 0.4 ng/ml (0.8-2.0)
[2025-01-18] MEDS: STRIVERDI RESPIMAT 2 PUFF INH (14:22)
[2025-01-18] MEDS: SPIRIVA RESPIMAT 2.5 MCG 2 PUFF INH (14:22)
[2025-01-18] MEDS: LIPITOR 10 MG PO (17:03)
[2025-01-18] MEDS: CARDURA 4 MG PO (17:03)
[2025-01-19] VITALS (8 sets, daily range): BP systolic 79–145; BP diastolic 51–72
[2025-01-19 06:57] LABS: Total Protein 6.3 g/dl (6.3-8.2)
[2025-01-19 06:58] LABS: LDH 213 U/L (120-246)
[2025-01-19] MEDS: SPIRIVA RESPIMAT 2.5 MCG 2 PUFF INH (07:32)
[2025-01-19] MEDS: STRIVERDI RESPIMAT 2 PUFF INH (07:32)
--- NOTE | 2025-01-19 09:50 | W.PN.CARDCBS ---
Today's Communication / Plan
-
s/p thoracentesis
Cont to monitor Is and Os, daily weights, renal function and electrolytes
Continue Imdur/hydralazine and SGLT2
Known permanent atrial fibrillation, continue Eliquis at 2.5mg BID.
With bradycardia, his Toprol XL was reduced. Digoxin held.
Digoxin level less than 0.4
Medical therapy of nonMI troponin
Impression / Plan
-
.
PCP: Dr. Gutierres
Cardiology: Dr. SOCORRO Benjamin
Nephrology: Dr. Lao
Impression:�
Presented with SOB
Acute on chronic HFrEF
Recurrence of right-sided pleural effusion
s/p R thoracentesis w/ 900 cc serosanguineous fluid removed 09/17/2024
Bradycardia
Cardiomyopathy, EF 40
CKD 3b
Permanent Afib
Chronic Eliquis OAC
HTN
Mild AR
Mod MR
Chronic LBBB
Hyperlipidemia
Palpable abdominal aorta -normal aortic ultrasound 11/2022
h/o C.diff
Lexiscan mibi 01/10/23: No evidence of ischemia
Echo 04/11/21: EF 45-50%, mild conc LVH, mild MR, mild aortic regurgitation
Echo 10/23/22: EF 40%, moderate MR, mild aortic regurgitation, mod TR with PASP 49 mmHg
Echo 04/16/23: Ejection fraction 25 to 30%, moderate MR, aortic sclerosis with mild AI, pleural effusions
Echo 05/18/23: EF 27% by volumetric assessment and 41% by Nunez
Echo 08/29/2023: EF 36-41%, stage I diastolic dysfunction, mild-mod MR, mild-mod AR, mild-mod TR, estimated PAP 60-70 mmHg
Plan:
-Presenting with shortness of breath found to be in acute heart failure with recurrent R pleural effusion
He feels much improved s/p thoracentesis
Cont to monitor Is and Os, daily weights, renal function and electrolytes
Continue Imdur/hydralazine and SGLT2
Known permanent atrial fibrillation, continue Eliquis at 2.5mg BID.
With bradycardia, his Toprol XL was reduced. Digoxin held.
Digoxin level less than 0.4
Medical therapy of nonMI troponin
HPI:PMH of heart failure with reduced ejection fraction presenting with dyspnea found to be in acute heart failure. Patient tells me he has had several days of worsening dyspnea and noted orthopnea on the night of 01/16/2025. No significant edema or
weight gain by his report. He presented to [facility] for evaluation and was found to be in acute heart failure. Not hypoxic but chest x-ray showed recurrent right pleural effusion. proBNP elevated to 12,000.
Troponin trend 0.033, 0.043, 0.040. Not reporting any chest discomfort. There was also concern for low heart rates while in the ED. Patient has permanent A-fib on metoprolol and digoxin and heart rates reportedly dropped into the 30s at times on
telemetry. Patient is not reporting any presyncope or syncope.
Progress Note - Take Away Attendant
Subjective
Date of Service: January 19, 2025
Pt seen and examined. No complaints. No chest pain. Breathing improved
Objective
Labs:
01/18/25 07:35
01/18/25 07:35
Labs
Hgb 15.1 g/dL (13.0-18.0) 01/18/25 07:35
Hct 46.0 % (39.0-52.0) 01/18/25 07:35
Plt Count 406 10^3/uL (130-400) H 01/18/25 07:35
Sodium 143 mmol/L (135-145) 01/18/25 07:35
Potassium 4.0 mmol/L (3.5-5.1) 01/18/25 07:35
BUN 40 mg/dl (9-20) H 01/18/25 07:35
Creatinine 1.7 mg/dL (0.7-1.3) H 01/18/25 07:35
Glucose 94 mg/dl (70-99) 01/18/25 07:35
Digoxin < 0.4 ng/ml (0.8-2.0) L 01/18/25 07:35
Troponins
01/17/25 01/18/25 01/18/25
22:05 02:10 07:35
Troponin I 0.033 0.043 H* D 0.040 H*
01/18/25
13:42
Troponin I Cancelled
Vital Signs and I&O:
Vital Signs
Temp Pulse Resp BP Pulse Ox
97.5 F 68 22 135/59 96
01/19/25 09:39 01/19/25 09:39 01/19/25 09:39 01/19/25 09:39 01/19/25 09:39
Vital Signs
Temp Pulse Resp BP Pulse Ox
97.5 F 68 22 135/59 96
01/19/25 09:39 01/19/25 09:39 01/19/25 09:39 01/19/25 09:39 01/19/25 09:39
Intake & Output
01/17/25 01/18/25 01/19/25 01/20/25
06:59 06:59 06:59 06:59
Intake Total 1020 / 1020
Output Total 250 / 250
Balance -250 / -250 1020 / 1020
Physical Exam
Physical Exam
General: No acute distress, AAOX3
Neck: Negative JVD
Heart: Irregular regular, Negative S3 positive S1/S2, Negative S4, No murmur
Lungs: CTA b/l, negative wheezes/rales/rhonchi
Abd: Positive BS, NT/ND, neg rebound/rigidity/guarding
Ext: Negative cyanosis/clubbing/edema
Neuro: nonfocal
[2025-01-19] MEDS: IMDUR (EXTENDED RELEASE) 30 MG PO (09:54)
[2025-01-19] MEDS: APRESOLINE 50 MG PO ×3 (09:54→22:43)
[2025-01-19] MEDS: FARXIGA 10 MG PO (09:54)
[2025-01-19] MEDS: LASIX 80 MG IV (09:55)
[2025-01-19] MEDS: TOPROL XL 50 MG PO ×2 (09:55→20:10)
[2025-01-19 10:25] LABS: Body Fluid Second Tech ASW
--- NOTE | 2025-01-19 13:20 | CM ---
Reviewed the chart notes and spoke with the patient at the bedside. The patient is s/p thoracentesis. The patient resides alone in an independent apartment with elevator access. The patient has a rollator. The patient has had [facility] in past, but
no SNF. The patient confirmed his pharmacy of choice is [facility]. CM continues to be available to patient/family and is monitoring medical plan for needs at discharge.
Plan: Discharge to home when medically stable.
--- NOTE | 2025-01-19 14:08 | W.PN.HOSP.TC ---
Today's Communication/Plan
-
Assessment / Plan
Assessment / Plan
General: No Apparent Distress, Comfortable and Conversant
HEENT: NormoCephalic, Moist mucous membranes, Atraumatic
Respiratory: Decreased breath sounds right lung base, Non Labored Respirations
Cardiac: S1/S2 and Regular Rhythm; No Rub or Gallop
GI: Soft, Non Tender, Non Distended and Normal Bowel Sounds
Musculoskeletal: No Edema, no deformity
: NO Velasquez
Neuro: Awake, Alert, Nonfocal/grossly intact
Psych: Calm and cooperative
A/P: Patient is an 84y M with PMH significant for A-Fib, CHF and HTN who presents to ED complaining of progressive SOB x 2-3 weeks.
Acute on Chronic HFrEF
- Admit for further evaluation and treatment.
- ProBNP increased from prior - despite reported stable weight and no evident edema, etc noted on exam.
- Hospital weight increased from 64 - 70kg in the past 3 months.
- Patient complained of gradually progressive SHAH, orthopnea
- Have been diuresing with Lasix 80 mg IV since admission, likely transition to home dose of 80 mg p.o. tomorrow 01/20
- Continue Jardiance.
- Last echo in 08/2024 with LVEF = 40-45%, moderate MR/TR.
- Cardiology following, appreciate recommendations.
Hx of COPD
- PFT 09/26/2023: Mild airflow obstruction. Air-trapping. Severely decreased diffusion capacity.
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
- Continue scheduled breathing treatments
- Appreciate pulmonology guidance
Right hydropneumothorax
- CXR with reaccumulation of pleural effusion on the R, has been drained previously with evidence of trapped lung
- Status post right thoracentesis this morning 01/19 with 1 L serosanguineous fluid off, evidence of trapped lung after thoracentesis, patient reports breathing more comfortably now
- Appreciate further pulmonology guidance, not sure he would be a good candidate for pleurodesis
Permanent Atrial Fibrillation
Bradycardia
- Heart rates in the ED occasionally into the 30s with pauses.
- Hold digoxin for now. Decreased metoprolol to 50mg BID.
- Monitor on telemetry and adjust medications as needed. HR this morning 60s-70s on monitor
- Cardiology following
Benign Hypertension
- Stable.
- Continue hydralazine 50 mg 3 times daily and Imdur 30 mg daily
- Follow for changes concurrent with diuresis.
- Adjust medications as needed.
CKD III
- Stable. Renal function at / near known baseline.
- Follow for changes with diuresis, etc.
- Avoid hypotension, nephrotoxic agents, etc.
DVT Prophylaxis: SCDs while Eliquis on hold for thoracentesis and any other potential procedure.
Code Status: DNR
Anticipated Discharge: 24 - 48 hours
Subjective/Interval History
-
Date of Service: January 19, 2025
Patient was seen and examined at bedside this morning. He just returned from the IR suite where he underwent right-sided thoracentesis with approximately 1 L removed. Breathing comfortably.
Objective Data
-
Vital Signs:
Vital Signs
Temp Pulse Resp BP Pulse Ox
97.5 F 75 22 136/69 95
01/19/25 11:00 01/19/25 11:00 01/19/25 11:00 01/19/25 11:00 01/19/25 11:00
I&O
01/18/25 01/19/25 01/20/25
06:59 06:59 06:59
Intake Total 1020 / 1020
Output Total 250 / 250
Balance -250 / -250 1020 / 1020
Review of Systems
-
History Source: Patient
All other systems: Reviewed and negative
Physical Exam
-
General: No Apparent Distress
[2025-01-19] MEDS: LIPITOR 10 MG PO (17:59)
[2025-01-19] MEDS: CARDURA 4 MG PO (17:59)
[2025-01-19] MEDS: ELIQUIS 2.5 MG PO (20:10)
[2025-01-20 03:18] VITALS: BP 134/70
[2025-01-20 07:00] VITALS: BP 144/62
[2025-01-20] MEDS: STRIVERDI RESPIMAT 2 PUFF INH (07:30)
[2025-01-20] MEDS: SPIRIVA RESPIMAT 2.5 MCG 2 PUFF INH (07:30)
[2025-01-20 07:36] LABS: Hematocrit 50.6 % (39.0-52.0); Hemoglobin 16.0 g/dL (13.0-18.0); Mean Corp Hgb Conc. 31.6 g/dL (33.0-37.0); Mean Corpuscular Volume 81.1 fL (80.0-94.0); Nucleated Red Blood Cells % 0 % (-); Platelet Count 454 10^3/uL (130-400); Red Cell Dist. Width 17.3 % (11.5-14.5)
[2025-01-20] MEDS: IMDUR (EXTENDED RELEASE) 30 MG PO (07:40)
[2025-01-20] MEDS: TOPROL XL 50 MG PO (07:40)
[2025-01-20] MEDS: LASIX 80 MG PO (07:41)
[2025-01-20] MEDS: FARXIGA 10 MG PO (07:41)
[2025-01-20] MEDS: APRESOLINE 50 MG PO (07:41)
[2025-01-20] MEDS: ELIQUIS 2.5 MG PO (07:42)
[2025-01-20 08:23] LABS: Blood Urea Nitrogen 41 mg/dl (9-20); Calcium 8.7 mg/dl (8.4-10.2); Carbon Dioxide 33 mmol/L (22-30); Chloride 102 mmol/L (98-107); Glucose 93 mg/dl (70-99); Potassium 4.0 mmol/L (3.5-5.1); Sodium 145 mmol/L (135-145); eGFR 36.89
--- NOTE | 2025-01-20 08:58 | W.PN.PUL3 ---
Today's Communication / Plan
-
- Start Anoro or Stiolto at discharge
- Avoid future thoracentesis unless symptomatic from enlarging effusion
- Resume outpatient follow-up with [facility] pulmonary clinic
Assessment
-
Assessment: 84-year-old male with a past medical history of bullous emphysema, COPD, former tobacco smoker, asbestos exposure, pulmonary nodules, chronic HFrEF, A-fib on Eliquis, hypercholesterolemia, hypertension, postnasal drip, chronic
right-sided pleural effusion with trapped/entrapped lung with history of pneumothorax ex vacuo s/p thoracentesis (August 2024), valvular heart disease and history of C. difficile who presents with increasing SOB. Patient has been remaining
active, walking 2000 steps a day. Over the last 3 weeks his shortness of breath has been persistently worsening. Being in the heat has not been helping. Denies any recent leg or belly swelling. Denies a cough although he does clear his throat
frequently and has had postnasal drip for a few months. He denies any recent sick contacts. In the ER he was afebrile, pulse rate 60, respiratory rate 24, BP 110/58 and saturating 95% on room air. Pertinent labs show platelet count 447, absolute
eosinophil count 100, creatinine 1.7, glucose 104, proBNP 12,000, and troponin 0.033. CXR showed a moderate right and small left pleural effusion with bibasilar opacities. He was given 80 mg IV Lasix and admitted to the hospitalist service.
Pulmonary service now consulted for additional management/recommendations.
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
sided thoracentesis with resultant pneumothorax ex vacuo (August 2024), myalgia, aortic insufficiency, mitral regurgitation, history of C. difficile
Assessment and plan:
#1. Dyspnea, multifactorial will underlying COPD and CHF exacerbation
-Clinically improving with thoracentesis, diuresis as well as treatment for COPD.
#2. Severe bilateral emphysema with COPD
- Imaging suggestive of significant bilateral emphysematous changes
- Continue Spiriva and olodaterol while inpatient, discharged on Anoro or Stiolto at discharge
- No wheezing on exam, hold off antibiotics or steroids for now
- Resume follow-up with Dr. Almanzar at [facility] postdischarge
#3. 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
- Reviewed prior imaging all the way up to 2022. History of recurrent pleural effusions related to congestive heart failure.
- Thoracentesis in August 2024 complicated by right-sided hydropneumothorax related to underlying trapped lung.
- Thoracentesis this admission, complicated by hydropneumothorax postprocedure, 1000 ml sero-sanguinous fluid removed
- Similar presentation this admission post-thoracentesis, lung unlikely to expand in view of thick pleural rind and entrapment
- Lung unlikely to expand without surgical decortication, which was felt to be high risk considering his advanced age and emphysema with high risk of bronchopleural fistula postprocedure.
- Avoid thoracentesis unless patient has significant respiratory symptoms as his lung is unlikely to expand post fluid removal
#4. Pulmonary hypertension.
- Echocardiogram 12/2024, pulmonary artery systolic pressure 67 with normal RV size and function
- Suspect primarily group II with underlying congestive heart failure, also might have component of group III with severe underlying emphysema
- Target oxygen saturation greater than 90%, target euvolemia
- Will pursue 6-minute walk test as outpatient
#5. Acute on chronic heart failure exacerbation with reduced ejection fraction
- Cardiology service on case, currently on Lasix and Farxiga
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
Other medical diagnoses:
- NSTEMI type II
- CKD stage III
- Chronic thrombocytosis
- Former tobacco smoker (85-wibn-tutj history, quit around 2002)
- Asbestos exposure while working in [employer] for many years
- Subcentimeter pulmonary nodules (stable 6.5 mm nodule in the posterolateral left lower lobe, and appears more to be rounded atelectasis, and another stable 4mm nodule in lateral LLL
- Permanent A-fib on Eliquis
Recommend him to follow-up with our office following discharge as last visit with Dr. Almanzar was 01/05/2025
Data:
ECHO 12/2024: eft ventricle is mildly dilated. Mildly reduced left ventricular systolic
function. Left ventricular ejection fraction is 45-50% by Nunez's method of
discs. Global hypokinesis. Abnormal septal motion consistent with left bundle
branch block. Normal wall thickness. Diastolic function indeterminate due to
atrial fibrillation.
Mitral valve opens normally. Thickened mitral valve leaflets. Mitral annular
calcification. Moderate mitral regurgitation.
Indexed LA volume is moderately abnormal (42-48 mL/m2).
Calcified and thickened aortic valve. There is adequate aortic leaflet
excursion. Aortic sclerosis without stenosis. Mild aortic regurgitation.
Tricuspid valve opens normally. Moderate tricuspid regurgitation. Estimated
pulmonary artery pressure of 67 mmHg, assuming a right atrial pressure of 8
mmHg.
Moderately dilated right atrium.
Normal right ventricular size and function.
Pleural effusion seen.
Since echo August 2024, there is no significant change. Left ventricle is
mildly dilated.
CT chest without contrast 01/18/2025: Severe emphysema; moderate right and small left pleural effusions. Opacities in the basilar right lower lobe are favored to represent round atelectasis.
Full PFT 09/26/2023:
Mild persistent obstructive lung defect with a positive, nonsignificant bronchodilator response. Post�bronchodilator FEV1: 2.82 L / 102% predicted. Mild hyperinflation with T%. Air trapping with RV: 137% predicted. Severe gas exchange
capacity defect which is mildly improved when accounting for alveolar volume involved in gas exchange (DLco: 37%, DLco/VA: 41%).
Transthoracic echocardiogram 09/19/2024:
Normal left ventricular chamber size. Mildly reduced left ventricular systolic
function. Left ventricular ejection fraction is 40-45%. Global hypokinesis.
Mild concentric left ventricular hypertrophy. Diastolic function indeterminate
due to atrial fibrillation.
Normal right ventricular size. Normal right ventricular systolic function.
Moderate mitral regurgitation.
Aortic sclerosis without stenosis. Mild to moderate aortic regurgitation.
Moderate tricuspid regurgitation. Estimated pulmonary artery pressure of 45-50
mmHg. Assuming a right atrial pressure of 3 mmHg.
Compared to prior study dated 08/29/2023, estimated PA systolic pressure was
previously higher at 70-75 mmHg.
Total time spent today was 47 minutes for this encounter. Time includes reviewing laboratory test/imaging results, reviewing pertinent medical records, obtaining and reviewing medical history, performing an appropriate exam, ordering medications,
tests and procedures. Time also includes documentation of this encounter, coordinating patient care and communicating with other healthcare professionals. Total time does not include separately billed tests performed on this date of service.
Subjective Data
-
Date of Service:
Date of Service: January 20, 2025
Subjective:
Patient comfortably sitting in bed, on room air, no pulmonary symptoms reported.
Review of Systems
Genitourinary: Other (All 14 systems reviewed and negative except as stated above in the history of present illness.)
Objective Data
Data Reviewed
Vital Signs / I&O / Oxygen:
Vital Signs
Temp Pulse Resp BP Pulse Ox
97.4 F 77 16 146/62 95
01/20/25 03:18 01/20/25 07:40 01/20/25 07:40 01/20/25 07:40 01/20/25 07:53
Intake and Output
01/19/25 01/20/25 01/21/25
06:59 06:59 06:59
Intake Total 1020 / 1020 240 / 240
Output Total 1675 / 1675
Balance 1020 / 1020 -1435 / -1435
SaO2 95
Physical Exam
General: Comfortable
HEENT: Normocephalic
Cardiovascular: S1-S2
Respiratory: Clear
GI: Soft and Non Distended
Neurology: Awake and Alert
Skin: Warm
Labs/Micro/Reports
Lab Data
01/20/25 06:22
01/20/25 06:22
Microbiology
01/19/25 08:49 Pleural Fluid Fungal Culture - Preliminary
Culture in progress.
Positive cultures are reported as soon as detected.
Final report to follow in four to five weeks.
01/19/25 08:49 Pleural Fluid Gram Stain - Preliminary
--- NOTE | 2025-01-20 09:55 | W.PN.CARDCBS ---
Today's Communication / Plan
-
He continues to improve s/p thoracentesis
Transitioned to oral lasix
Wt is down and stable.
Continue Imdur/hydralazine and SGLT2
Known permanent atrial fibrillation, continue Eliquis at 2.5mg BID.
With bradycardia, his Toprol XL was reduced. Digoxin held. Reeval HR as outpt off Digoxin. .
Digoxin level was less than 0.4
Medical therapy of nonMI troponin
Will arrange outpt follow up
Please recall if needed.
Impression / Plan
-
.
PCP: Dr. Gutierres
Cardiology: Dr. SOCORRO Benjamin
Nephrology: Dr. Lao
Impression:�
Presented with SOB
Acute on chronic HFrEF
Recurrence of right-sided pleural effusion
s/p R thoracentesis w/ 900 cc serosanguineous fluid removed 09/17/2024
Bradycardia
Cardiomyopathy, EF 40
CKD 3b
Permanent Afib
Chronic Eliquis OAC
HTN
Mild AR
Mod MR
Chronic LBBB
Hyperlipidemia
Palpable abdominal aorta -normal aortic ultrasound 11/2022
h/o C.diff
Lexiscan mibi 01/10/23: No evidence of ischemia
Echo 04/11/21: EF 45-50%, mild conc LVH, mild MR, mild aortic regurgitation
Echo 10/23/22: EF 40%, moderate MR, mild aortic regurgitation, mod TR with PASP 49 mmHg
Echo 04/16/23: Ejection fraction 25 to 30%, moderate MR, aortic sclerosis with mild AI, pleural effusions
Echo 05/18/23: EF 27% by volumetric assessment and 41% by Nunez
Echo 08/29/2023: EF 36-41%, stage I diastolic dysfunction, mild-mod MR, mild-mod AR, mild-mod TR, estimated PAP 60-70 mmHg
Plan:
-Presenting with shortness of breath found to be in acute heart failure with recurrent R pleural effusion
He continues to improve s/p thoracentesis
Transitioned to oral lasix
Wt is down and stable.
Continue Imdur/hydralazine and SGLT2
Known permanent atrial fibrillation, continue Eliquis at 2.5mg BID.
With bradycardia, his Toprol XL was reduced. Digoxin held. Reeval HR as outpt off Digoxin. .
Digoxin level was less than 0.4
Medical therapy of nonMI troponin
Will arrange outpt follow up
Please recall if needed.
HPI:PMH of heart failure with reduced ejection fraction presenting with dyspnea found to be in acute heart failure. Patient tells me he has had several days of worsening dyspnea and noted orthopnea on the night of 01/16/2025. No significant edema or
weight gain by his report. He presented to [facility] for evaluation and was found to be in acute heart failure. Not hypoxic but chest x-ray showed recurrent right pleural effusion. proBNP elevated to 12,000.
Troponin trend 0.033, 0.043, 0.040. Not reporting any chest discomfort. There was also concern for low heart rates while in the ED. Patient has permanent A-fib on metoprolol and digoxin and heart rates reportedly dropped into the 30s at times on
telemetry. Patient is not reporting any presyncope or syncope.
Progress Note - Case Management Associate
Subjective
Date of Service: January 20, 2025
Pt seen and examined. No complaints. No chest pain or shortness of breath.
Objective
Labs:
01/20/25 06:22
01/20/25 06:22
Labs
Hgb 16.0 g/dL (13.0-18.0) 01/20/25 06:22
Hct 50.6 % (39.0-52.0) 01/20/25 06:22
Plt Count 454 10^3/uL (130-400) H 01/20/25 06:22
Sodium 145 mmol/L (135-145) 01/20/25 06:22
Potassium 4.0 mmol/L (3.5-5.1) 01/20/25 06:22
BUN 41 mg/dl (9-20) H 01/20/25 06:22
Creatinine 1.8 mg/dL (0.7-1.3) H 01/20/25 06:22
Glucose 93 mg/dl (70-99) 01/20/25 06:22
Digoxin < 0.4 ng/ml (0.8-2.0) L 01/18/25 07:35
Troponins
01/17/25 01/18/25 01/18/25
22:05 02:10 07:35
Troponin I 0.033 0.043 H* D 0.040 H*
01/18/25
13:42
Troponin I Cancelled
Vital Signs and I&O:
Vital Signs
Temp Pulse Resp BP Pulse Ox
97.7 F 77 16 146/62 95
01/20/25 07:00 01/20/25 07:40 01/20/25 07:40 01/20/25 07:40 01/20/25 07:53
Vital Signs
Temp Pulse Resp BP Pulse Ox
97.7 F 77 16 146/62 95
01/20/25 07:00 01/20/25 07:40 01/20/25 07:40 01/20/25 07:40 01/20/25 07:53
Intake & Output
01/18/25 01/19/25 01/20/25 01/21/25
06:59 06:59 06:59 06:59
Intake Total 1020 / 1020 240 / 240
Output Total 250 / 250 1675 / 1675
Balance -250 / -250 1020 / 1020 -1435 / -1435
Physical Exam
Physical Exam
General: No acute distress, AAOX3
Neck: Negative JVD
Heart: Irregularly irregular, Negative S3 positive S1/S2, Negative S4, No murmur
Lungs: CTA b/l, negative wheezes/rales/rhonchi
Abd: Positive BS, NT/ND, neg rebound/rigidity/guarding
Ext: Negative cyanosis/clubbing/edema
Neuro: nonfocal
--- NOTE | 2025-01-20 10:33 | W.DCSUMMARY ---
Discharge Summary
Discharge Data
Date of Admission: 01/18/25
Date of Discharge: 01/20/25
Total time spent discharging patient (in min): 45
-
Pending Results: No
Hospital Course
Mr. Heaton is an 84-year-old male with a medical history of HFrEF, A-fib (on digoxin and metoprolol, Eliquis), CKD stage III, COPD, and hypertension who presented with shortness of breath. He was found to be volume overloaded and was started on
treatment for acute on chronic HFrEF. He was also found to have recurrence of large right pleural effusion. He diuresed well with IV Lasix. He underwent right thoracentesis on 01/19 with 1 L of serosanguineous fluid removed. Chest imaging after
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 He was breathing comfortably and saturating appropriately on room air after the thoracentesis and diuresis. He was transitioned back to his home dose of oral Lasix 80 mg daily. He was
evaluated by pulmonology who recommended continuing scheduled LAMA/LABA at discharge and outpatient follow-up. He will have to discuss further with pulmonology in the outpatient setting whether or not he is a candidate for decortication and
pleurodesis for his trapped lung. During this hospitalization his digoxin was held and his metoprolol was decreased to 50 mg twice daily due to bradycardia. He will be discharged on this adjusted regimen and will need to follow-up with cardiology
in the outpatient setting for further evaluation and management. At the time of hospital discharge he was medically stable.
General: No Apparent Distress, Comfortable and Conversant
HEENT: NormoCephalic, Moist mucous membranes, Atraumatic
Respiratory: Decreased breath sounds right lung base, Non Labored Respirations
Cardiac: S1/S2 and Regular Rhythm; No Rub or Gallop
GI: Soft, Non Tender, Non Distended and Normal Bowel Sounds
Musculoskeletal: No Edema, no deformity
: NO Velasquez
Neuro: Awake, Alert, Nonfocal/grossly intact
Psych: Calm and cooperative
Discharge Plan
-
Patient Disposition: Home (Routine Discharge)
Discharge Diagnosis/Procedures: Acute on chronic HFrEF, with pleural effusion with trapped lung
Condition: Fair
Activity Restrictions/Additional Instructions:
Mr. Heaton is an 84-year-old male with a medical history of HFrEF, A-fib (on digoxin and metoprolol, Eliquis), CKD stage III, COPD, and hypertension who presented with shortness of breath. He was found to be volume overloaded and was started on
treatment for acute on chronic HFrEF. He was also found to have recurrence of large right pleural effusion. He diuresed well with IV Lasix. He underwent right thoracentesis on 01/19 with 1 L of serosanguineous fluid removed. Chest imaging after
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 He was breathing comfortably and saturating appropriately on room air after the thoracentesis and diuresis. He was transitioned back to his home dose of oral Lasix 80 mg daily. He was
evaluated by pulmonology who recommended continuing scheduled LAMA/LABA at discharge and outpatient follow-up. He will have to discuss further with pulmonology in the outpatient setting whether or not he is a candidate for decortication and
pleurodesis for his trapped lung. During this hospitalization his digoxin was held and his metoprolol was decreased to 50 mg twice daily due to bradycardia. He will be discharged on this adjusted regimen and will need to follow-up with cardiology
in the outpatient setting for further evaluation and management. At the time of hospital discharge he was medically stable.
Instructions: *[facility] Heart Failure Instructions
Referrals:
Glory Almanzar MD [Active, Pulmonary Medicine] - in two to three weeks
Maile Gutierres DO [Family Provider, Family Practice]
Prescriptions:
New
metoprolol succinate 50 mg Tablet Extended Release 24 Hr
50 mg PO BID 30 Days Qty: 60 0RF
umeclidinium-vilanterol [Anoro Ellipta] 62.5-25 mcg/actuation blister with device
1 inh inhalation DAILY Qty: 60 0RF
Continued
atorvastatin 10 MG tablet
10 mg PO QPM
doxazosin 4 mg Tablet
4 mg PO QPM
coenzyme Q10 [Co Q-10] 100 mg Capsule
100 mg PO Q48H
Eliquis 2.5 mg Tablet
2.5 mg PO BID
isosorbide mononitrate 30 mg tablet extended release 24 hr
30 mg PO DAILY
hydralazine 50 mg Tablet
50 mg PO TID
furosemide 80 mg tablet
80 mg PO DAILY
Jardiance 10 mg tablet
10 mg PO DAILY
therapeutic multivitamin Tablet
1 tab PO Q48H
Discontinued
metoprolol succinate 100 mg Tablet Extended Release 24 Hr
100 mg PO BID
digoxin 62.5 mcg (0.0625 mg) Tablet
62.5 mcg PO DAILY@1200
Discharge Orders:
Discharge Patient (As Directed); Ordered 01/20/25
Ordered By: Anthony Rider
Discharge Date and Time
Print Language: [place]
--- NOTE | 2025-01-20 10:51 | CM ---
Reviewed the chart notes and spoke with the patient at the bedside. IMM reviewed. Patient's daughter to provide transportation home. CM continues to be available to patient/family and is monitoring medical plan for needs at discharge.
Plan: Discharge to home today. No needs.
[2025-01-20 11:00] VITALS: BP 143/65
--- NOTE | 2025-01-21 09:03 | W.HF.CON ---
Heart Failure
- LV Function
Left ventricular function study result: LV Ejection fraction 41-49%
Ejection Fraction Percentage: 45-50
- ARNI
Patient already on ARNI: No
Heart Failure ARNI Not Indicated: LV Ejection Fraction >/= 40%
- ACEI/ARB
Patient already on ACEI/ARB: No
Heart Failure ACEI/ARB Not Indicated: LV Ejection Fraction > 40%
- Beta Jes
Patient already on Evidence Based Beta Jes: Yes
- Mineralocorticord Receptor Antagonist
Patient already on MRA: No
Heart Failure MRA Not Indicated: LV Ejection Fraction > 40%
- SGLT-2 Inhibitor
Patient already on SGLT-2 Inhibitor: Yes
- Hydralazine & Isosorbide Dinitrate
Patient already on Hydralazine & Isosorbide Dinitrate: Yes
- Afib Anticoagulation
Patient already on Anticoagulation for Afib: Yes
- NYHA CHF Classification
NYHA CHF Classification Level: Class III - Symptoms w/ min exertion, interferes w/ nml daily activity
- ACC/AHA Stage
ACC/AHA Stage: Stage C: Symptomatic Heart Failure
== END 2025-01-20 12:32 | disposition home or self-care (01) | DRG 291 ==
LOC: 2 NORTH 00:34
PROVIDERS: Emergency Medicine; Radiology Diagnostic Radiology; ADMITTING PHYSICIAN Hospitalist; ATTENDING PHYSICIAN Internal Medicine; CONSULT PHYSICIAN Internal Medicine Cardiovascular Disease; CONSULT PHYSICIAN Internal Medicine Critical Care Medicine; EMERGENCY PHYSICIAN Emergency Medicine; FAMILY PHYSICIAN Family Medicine
PROC: 0W993ZZ Drainage of Right Pleural Cavity, Percutaneous Approach (ICD-10-PCS; 2025-01-19)
DX: I13.0 Hypertensive heart and chronic kidney disease with heart failure and stage 1 through stage 4 chronic kidney disease, or unspecified chronic kidney disease (principal); I50.23 Acute on chronic systolic (congestive) heart failure; I48.21 Permanent atrial fibrillation; J94.8 Other specified pleural conditions; J44.1 Chronic obstructive pulmonary disease with (acute) exacerbation; Z87.891 Personal history of nicotine dependence; Z79.01 Long term (current) use of anticoagulants; N18.32 Chronic kidney disease, stage 3b; Z66 Do not resuscitate; I27.20 Pulmonary hypertension, unspecified
CPT/HCPCS: 88305; 32555; 71045; 71046; 71250; 80048; 80053; 80162; 82945; 83615; 83880; 83986; 84155; 84157; 84443; 84478; 84484; 85025; 85027; 87015; 87070; 87102; 87116; 87205; 88112; 89051; 93005; 93306; 94640; 94760; 96374; 99285

== ENCOUNTER → 2025-03-12 14:29 | Outpatient (REF) | payer MEDICARE, SELFPAY | LOC: RAD 14:29 | PROVIDERS: ATTENDING PHYSICIAN Internal Medicine Critical Care Medicine; FAMILY PHYSICIAN Family Medicine | DX: J94.8 Other specified pleural conditions (principal) | CPT/HCPCS: 71046 ==

== ENCOUNTER → 2025-05-14 16:49 | Outpatient (REF) | payer MEDICARE, SELFPAY | LOC: RAD 16:49 | PROVIDERS: ATTENDING PHYSICIAN Internal Medicine Critical Care Medicine; FAMILY PHYSICIAN Family Medicine | DX: J90 Pleural effusion, not elsewhere classified (principal); R06.02 Shortness of breath | CPT/HCPCS: 71046 ==

== ENCOUNTER → 2025-05-18 09:04 | Outpatient (REF) | payer MEDICARE, SELFPAY ==
[2025-05-18 09:29] VITALS: BP 125/71; BP_SYST 62
[2025-05-18 10:21] VITALS: BP 120/71; BP_SYST 62
[2025-05-18 12:04] LABS: Body Fluid Second Tech BP
== END ==
LOC: RADI 09:04
PROVIDERS: ATTENDING PHYSICIAN Internal Medicine Critical Care Medicine; FAMILY PHYSICIAN Family Medicine
DX: J90 Pleural effusion, not elsewhere classified (principal)
CPT/HCPCS: 32555; 71045; 82945; 83615; 84157; 87015; 87070; 87102; 87116; 87205; 87206; 88112; 88305; 89051

== ENCOUNTER → 2025-05-26 12:03 | Outpatient (REF) | payer MEDICARE, SELFPAY | LOC: RAD 12:03 | PROVIDERS: ATTENDING PHYSICIAN Internal Medicine Critical Care Medicine; FAMILY PHYSICIAN Family Medicine | DX: J90 Pleural effusion, not elsewhere classified (principal) | CPT/HCPCS: 71046 ==

== ENCOUNTER 2025-06-09 11:02 | Inpatient (IN) | payer MEDICARE, SELFPAY ==
[2025-06-09] VITALS (9 sets, daily range): BP systolic 104–140; BP diastolic 47–63; BMI 21.8; BMI 20.8
[2025-06-09 08:18] LABS: Hematocrit 45.3 % (39.0-52.0); Hemoglobin 14.6 g/dL (13.0-18.0); Mean Corp Hgb Conc. 32.2 g/dL (33.0-37.0); Mean Corpuscular Volume 77.7 fL (80.0-94.0); Nucleated Red Blood Cells % 0 % (-); Platelet Count 496 10^3/uL (130-400); Red Cell Dist. Width 17.3 % (11.5-14.5)
--- NOTE | 2025-06-09 08:21 | ED.GENMED ---
History of Present Illness
General
Chief Complaint: Breathing Problem
Source: patient
Exam Limitations: none
Time Seen by Provider: 06/09/25 08:06
Nursing documentation reviewed up to this point in time: agreed with
History of Present Illness
History of Present Illness:
Patient with history of chronic atrial fibrillation on Eliquis, congestive heart failure on Lasix 80 mg daily, status post thoracentesis 2 weeks ago, presents to ED after waking up this morning with sudden onset of shortness of breath. Patient
walked downstairs and was able to fall back asleep on his recliner. When he woke up again this morning and was walking to the restroom, he experienced upper chest pain along with recurrent shortness of breath, which resolved quickly when he rested.
Upon arrival in ED, patient is found to be hypoxic requiring supplemental oxygen. Patient does not typically use oxygen at home. Denies fever or chills. Denies recent illness. Denies dizziness or palpitations. Denies nausea or vomiting.
Denies recent travel. Denies sick contact. Denies recent change in medications or diet. Patient reports having taken Eliquis this morning. Patient states that his weight has been steady recently.
Past History
Past History
ED Past Medical History: Arrthythmia (afib), CHF, GERD, HTN, Hypercholesterolemia, Renal failure and Other (PNA, C-diff)
ED Past Surgical History: Appendectomy and Other (Hernia repair)
Patient has exhibited threatening behavior?: No
PSI?: No
Social History
Tobacco: Former smoker
Alcohol: Occasional
Drug: None
Personal:
Living: with family
Employment: Retired
Family History
Family History: Other (Noncontributory)
Review of Systems
Review of Systems
Allergies reviewed?: Yes
All Other Systems: ROS reviewed and negative except as documented in HPI and ROS
Constitutional: Reports no symptoms; Denies fever
Respiratory: Reports trouble breathing; Denies cough
Cardiac: Reports chest pain; Denies diaphoresis, palpitations or syncope
ABD/GI: Reports no symptoms; Denies nausea or vomiting
Musculoskeletal: Reports no symptoms; Denies edema
Skin: Reports no symptoms
Neurological: Reports no symptoms
Phy Exam
Physical Exam
Physical Exam:
Physical Exam
General: mild respiratory distress, not acutely ill. afebrile. hypoxic
Head: nc/at. eomi
Neck: supple. normal range of motion. no jvd.
Heart: s1/s2 regular rate and rhythm
Lungs: mild respiratory distress. diminished breath sounds bilaterally
Abdomen: normal bowel sounds. not tender.
Neuro: alert and oriented x 3. no focal neurological deficits
Skin: no rash
Psychiatric: well kept. interactive and cooperative
Extremities: no edema. no calf tenderness.
Scores
Heart Failure Risk
Heart Failure Risk Score: Yes
History of Stroke or TIA: No
History of intubation for respiratory distress: No
Heart rate on ED arrival >/= 110: No
SaO2 <90% on arrival on room air: Yes
HR >/=110 during 3min walk test (or too ill to perform test): No
ECG has acute ischemic changes: No
Urea >/=12mmol/L (BUN 33.6mg/dL): No
Serum CO2>/=35mmol/L: Yes
Troponin I or T elevated to [place] Level (0.4mg/dL): No
NT-proBNP >/=5,000ng/L (5,000pg/ml): Yes
HF Risk Score: 4
Admission Status: HIGH RISK 26.1% Consider SNF treatment or admission to hospital
Course
Orders/Labs/Results
Orders:
Orders
06/09/25 08:01
Electrocardiogram (*1) Urgent
Reason for Study: Shortness of Breath
EKG- Treatment ONCE
06/09/25 08:09
CXR2 [CR Chest - 2 Views ] Urgent
Comment:
Reason For Exam: SOB
06/09/25 08:11
Complete Blood Count/With Diff Urgent
Pro-BNP [NT-proBNP] Urgent
06/09/25 08:22
Add On- LAB Urgent
Tests Added?: troponin
06/09/25 09:04
Comprehensive Metabolic Panel Urgent
Ferritin Routine
Iron Urgent
Comment: ADD ON
Total Iron Binding Urgent
Comment: ADD ON
Troponin I Urgent
06/09/25 09:50
Furosemide [Lasix] 40 mg IV NOW STA
06/09/25 10:42
Admit/Transfer Patient As Directed
Co-Sign Provider:
Level of Care: Inpatient admission
Assign to:: Telemetry
Physician / Group: Hospitalist
Transfer to: Telemetry
Diagnosis: Hypoxia
Reason for Telemetry: Medication for Arrhythmia
Date to Stop Telemetry: 06/11/25
Time to Stop Telemetry: 11:00
Reason for Hospitalization: Hypoxia
Expected length of stay greater than two midnights?: Yes
ELOS- Estimated Length of Stay in days: 3
I certify the patient meets the requirements for IP care: Yes
06/09/25 10:43
PRN Pain Medication Management As Directed
May give lesser potent ordered pain med per pt: Yes
preference::
Protocol:: Medication orders for pain may be administered in a
manner that supports deferring to patient preference
when the pt is:
- Requesting an ordered lesser potent pain medication.
Least to most potent pain medications are defined
as: acetaminophen < NSAID < tramadol < opioids
(morphine, oxycodone, hydromorphone).
- Requesting a lesser dose of the same medication IF
ORDERED.
- Requesting a less intrusive route of administration
if both routes are prescribed by the provider (PO <
IV).
06/09/25 10:46
Echo 2D MMode Color/Doppler Routine
Reason for Study: hypoxia, SOB on exertion, history of CHF, afib
06/09/25 10:51
Add On- LAB Routine
Tests Added?: iron, ferritin
06/09/25 11:45
Legionella Urinary Antigen Routine
FESTUS Source: Urine
Specimen Description:
Strep pneumoniae Antigen Routine
FESTUS Source: Urine
Specimen Description:
06/09/25 12:34
Albuterol [ProAIR HFA INHALER] 2 puff INH R Q6HPRN PRN sob
Polyethylene Glycol Powder [Miralax] 17 grams PO DAILYPRN PRN constipation
06/09/25 16:00
HydrALAZINE [Apresoline] 50 mg PO TID
06/09/25 18:00
Atorvastatin [Lipitor] 10 mg PO QPM
Doxazosin Mesylate [Cardura] 4 mg PO QPM
06/09/25 20:00
Apixaban [Eliquis] 2.5 mg PO BID
Metoprolol Xl [Toprol Xl] 100 mg PO BID
06/10/25 08:00
Dapagliflozin [Farxiga] 10 mg PO DAILY
ISOSORBIDE MONOnitrate ER [Imdur (Extended Release)] 30 mg PO DAILY
Lactobac/Bifidobac [Visbiome] 1 cap PO DAILY
Multivitamin [Theragran] 1 tablet PO DAILY
Tiotropium [place] 2.5 Mcg [Spiriva Respimat 2.5 Mcg] 2 puff INH R DAILY
coenzyme Q10 [Co Q-10] 100 mg PO DAILY
06/11/25 11:00
DC Protocol for Telemetry ONCE
Abnormal Lab Results
06/09/25 06/09/25
08:11 09:04
WBC 11.5 H 10^3/uL
(4.8-10.8)
MCV 77.7 L fL
(80.0-94.0)
MCH 25.0 L pg
(27.0-31.0)
MCHC 32.2 L g/dL
(33.0-37.0)
RDW 17.3 H %
(11.5-14.5)
Plt Count 496 H 10^3/uL
(130-400)
Abs Immat Gran (auto) 0.1 H 10^3/uL
(0-0.05)
Absolute Neuts (auto) 10.4 H 10^3/uL
(1.4-6.5)
Absolute Lymphs (auto) 0.3 L 10^3/uL
(1.2-3.4)
Absolute Monos (auto) 0.7 H 10^3/uL
(0.1-0.6)
Neutrophils % 90.3 H %
(42.2-75.2)
Lymphocytes % 2.5 L %
(20.5-51.1)
Carbon Dioxide 32 H mmol/L
(22-30)
BUN 42 H mg/dl
(9-20)
Creatinine 1.6 H mg/dL
(0.7-1.3)
Iron 34 L ug/dl
(49-181)
TIBC 246 L ug/dl
(261-462)
% Saturation 13 L %
(20-50)
Total Protein 5.8 L g/dl
(6.3-8.2)
Albumin 3.4 L g/dl
(3.5-5.0)
06/09/25 08:11
06/09/25 09:04
Vital Signs
Initial and Last Documented VS:
Initial Vital Signs
Temp Pulse Resp BP Pulse Ox
98.2 F 74 16 126/53 94
06/09/25 07:37 06/09/25 07:37 06/09/25 07:37 06/09/25 07:37 06/09/25 07:37
Last Documented Vital Signs
Temp Pulse Resp BP Pulse Ox
97.4 F 79 16 133/58 96
06/11/25 15:32 06/11/25 15:32 06/11/25 15:32 06/11/25 15:32 06/11/25 15:32
MDM/Problems Addressed
MDM/Problems Addressed:
History and exam consistent with hypoxia, likely multifactorial, including mild fluid overload along with chronic lung disease. Initial hypoxia improved with supplemental oxygen. Patient will be admitted for further evaluation and treatment,
including IV diuresis.
*Pulse Oximetry
SaO2: 90
Oxygen Mode of Delivery: Room air
Patient hypoxic: yes
*EKG
Interpreted by ED Provider?: Yes
EKG Intrepretation Date: 06/09/25
Heart Rate: 76
Rate: normal
Rhythm: sinus
[place]: normal axis
Interval: normal interval
*Critical Care Note
Total Time (30-74mins, 75-104mins- exclusive of procedures): Not Applicable
ED Attending Note
-
Portions of this chart may have been created with voice recognition software.� Occasional wrong word or��sound alike� substitutions may have occurred due to the inherent limitations of voice recognition software.
Discharge Plan
Departure
Patient Disposition: Admit
Date of Disposition: 06/09/25
Time of Disposition: 09:50
Admit to: Telemetry
Presentation/result/management discussed w/ accepting MD/DO: Hospitalist
Discharge Problem:
Hypoxia, Fluid overload
Interventions
Interventions:
*Risk Screen - Suicide Last Done: 06/09/25 07:37
*General Assessment Last Done: 06/09/25 07:58
*Neglect/Abuse Screening Last Done: 06/09/25 07:37
*ED- Fall Risk Assessment Last Done: 06/09/25 07:58
*ED COVID-19 Vaccine History Last Done: 06/09/25 07:58
*ED Influenza Vaccine History Last Done: 06/09/25 07:58
*Nursing Disposition Last Done: 06/09/25 12:24
ED- Cardiac Assessment Last Done: 06/09/25 08:00
ED- Pulmonary Assessment Last Done: 06/09/25 07:59
Discharge Date and Time
Discharge Date/Time: 06/09/25 12:25
[2025-06-09 09:30] LABS: ALT (SGPT) 15 U/L (0-50); AST (SGOT) 21 U/L (17-59); Albumin 3.4 g/dl (3.5-5.0); Alkaline Phosphatase 60 U/L (38-126); Blood Urea Nitrogen 42 mg/dl (9-20); Calcium 9.1 mg/dl (8.4-10.2); Carbon Dioxide 32 mmol/L (22-30); Chloride 102 mmol/L (98-107); Glucose 88 mg/dl (70-99); Potassium 4.5 mmol/L (3.5-5.1); Sodium 138 mmol/L (135-145); Total Protein 5.8 g/dl (6.3-8.2); eGFR 42.22
[2025-06-09 09:41] LABS: Troponin I 0.024 ng/ml
[2025-06-09] MEDS: LASIX 40 MG IV ×2 (10:09→15:25)
--- NOTE | 2025-06-09 10:49 | HPS.HSE ---
Family Physician
-
Family Physician: Maile Gutierres
Chief Complaint
-
Dyspnea on exertion and rest
History of Present Illness
85-year-old male with history of permanent A-fib, CHF, COPD, stage IIIb CKD, hypertension, right chronic hydropneumothorax(recent thoracentesis 05/18) presents today with difficulty breathing. Patient reports of waking up from sleep last night due
to shortness of breath. He notes that he went and sat on a recliner to help him breathe better and sleep. He woke up by around 5 AM wanting to go to the restroom but he noticed extreme shortness of breath on exertion which resolved when he rested.
Upon arrival to the ED patient was found to be hypoxic requiring 2 L of oxygen. He does not use oxygen at home. He denies chest pain, lower extremity edema, palpitations. He has a history of right chronic hydropneumothorax with recent
thoracentesis on 05/18 yielding 950 cc of serosanguineous fluid. He denies any recent travels, cough/fever/chills, sick contacts. He is currently on Eliquis for permanent A-fib. He notes of no recent weight changes.
Medical History
Past Medical History
Past Medical History: Reports Arrhythmia (Permanent), CHF (Chronic mrEF), COPD (Chronic emphysema, chronic right hydropneumothorax), HTN and Renal Failure (CKD stage III)
Past Surgical History: Reports Appendectomy
Additional Past Surgical History:
Hernia repair
Social History
Tobacco: Former Smoker
Alcohol: Occasional
Drug: None
Personal:
Living: With Family
Employment: Retired
Family History
Family History: Not pertinent
Allergies / Home Medications
Allergies reflects when Allergies were last updated in [employer]
Home Medications with original date entered in [employer]
Allergies
Allergy/AdvReac Type Severity Reaction Status Date / Time
No Known Allergies Allergy Verified 06/09/25 07:37
Home Medications
atorvastatin 10 mg tablet 10 mg PO QPM High cholesterol 12/26/19
apixaban 2.5 mg tablet (Eliquis) 2.5 mg PO BID Blood clot prevention/tx 10/22/22
coenzyme Q10 100 mg capsule (Co Q-10) 100 mg PO DAILY Supplement 10/22/22
doxazosin 4 mg tablet 4 mg PO QPM Urinary issue 10/22/22
isosorbide mononitrate 30 mg tablet,extended release 24 hr 30 mg PO DAILY Heart disease/condition 11/15/22
hydralazine 50 mg tablet 50 mg PO TID Blood Pressure 01/08/23
furosemide 80 mg tablet 80 mg PO DAILY Fluid Retention/Swelling 07/30/23
empagliflozin 10 mg tablet (Jardiance) 10 mg PO DAILY Heart Failure 08/28/23
therapeutic multivitamin 1 tab PO DAILY Supplement 09/17/24
Lactobac no.2-Bifidobac no.1-S. thermo 112.5 billion cell capsule (Visbiome) 1 cap PO DAILY Supplement 06/09/25
albuterol sulfate 90 mcg/actuation aerosol inhaler 2 puff inhalation R Q6HPRN PRN sob 06/09/25
metoprolol succinate 100 mg tablet,extended release 24 hr (Toprol XL) 100 mg PO BID Heart Disease/Condition 06/09/25
polyethylene glycol 3350 17 gram oral powder packet (Miralax) 17 g PO DAILYPRN PRN constipation 06/09/25
umeclidinium 62.5 mcg-vilanterol 25 mcg/actuation powdr for inhalation (Anoro Ellipta) 1 inh inhalation R DAILY Lung/Breathing Issues 06/09/25
Allergy/Medication List:
Allergies
Allergy/AdvReac Type Severity Reaction Status Date / Time
No Known Allergies Allergy Verified 06/09/25 07:37
Review of Systems
-
History Source: Patient
A 12 point ROS was completed and negative except as noted: Yes
Constitutional: Reports See HPI
Respiratory: Reports Trouble Breathing (Dyspnea on exertion, PND)
Cardiac: Denies Chest Pain or Palpitations
Physical Exam
Vital Signs
Vital Signs
Temp Pulse Resp BP Pulse Ox
98.2 F 78 19 128/62 98
06/09/25 07:37 06/09/25 10:15 06/09/25 10:15 06/09/25 10:00 06/09/25 10:00
Physical Exam
General: Conversant and Respiratory Distress (Mild on 2 L oxygen)
HEENT: NormoCephalic, Anicteric and Moist mucous membranes
Respiratory: Decreased Breath Sounds (Bilaterally); No Wheezes
Cardiac: Irregular Rhythm
GI: Soft, Non Tender and Non Distended
Musculoskeletal: No Clubbing, No Cyanosis and No Edema
Skin: Warm and Dry
Neuro: Awake, Alert and Oriented
Hematologic/Lymphatic: No Lymphadenopathy
Psych: Calm
Laboratory Results
-
06/09/25 08:11
06/09/25 09:04
Laboratory Results
Total Bilirubin 1.1 mg/dl (0.2-1.3) 06/09/25 09:04
AST 21 U/L (17-59) 06/09/25 09:04
ALT 15 U/L (0-50) 06/09/25 09:04
Alkaline Phosphatase 60 U/L (38-126) 06/09/25 09:04
Troponin I 0.024 ng/ml 06/09/25 09:04
Data Reviewed
-
Diagnostic Radiology: Image Personally Visualized and interpreted and Report Reviewed by me
Impression/Plan
-
IMPRESSION:
Acute hypoxic respiratory insufficiency in the setting of chronic lung disease
Acute on chronic heart failure with mildly reduced ejection fraction
Leukocytosis
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
Permanent A-fib
Chronic kidney disease stage III KUB
Essential hypertension
Hyperlipidemia
History of pleural effusion
History of right chronic hydropneumothorax
History of COPD
History of asbestosis
Former smoker
PLAN:
#Acute hypoxic respiratory insufficiency in setting of chronic lung disease
Currently on 2 L of oxygen saturating 98%
Mildly fluid overloaded----- check echocardiogram
Normal troponin
Elevated proBNP 46847
Previous left ventricular ejection fraction 12/2024--- LVEF 45 to 50%
Chest x-ray showing right chronic hydropneumothorax/trapped lung
Recent thoracentesis 05/18 yielding 950 cc of serosanguineous fluid
Check/strep pneumo/Legionella urinary antigen
Consult cardiology and pulmonology
Check COVID/flu
#Acute on chronic heart failure with mildly reduced ejection fraction
Check echo
Check daily weights
Continue IV Lasix 40 mg twice daily
Continue continue home medications(GDMT)
Consult cardiology
Previous left ventricular ejection fraction 12/2024--- LVEF 45 to 50%
#Leukocytosis
Currently afebrile, WBC of 11.5
Monitor white count and temperature curve
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
MCV 77, hemoglobin 14.6
Check serum iron, ferritin
No recent hematuria/hematochezia/hemoptysis
#Permanent A-fib
Continue Eliquis and rate control medications
#History of CKD 3 stage IIIb
Baseline creatinine 1.8-2.2
Current creatinine 1.6
Continue to monitor
#Essential hypertension
Continue home medications
#Hyperlipidemia
Continue atorvastatin
#History of pleural effusion
#History of right chronic hydropneumothorax
Recent thoracentesis 05/18 yielding 950 cc of serosanguineous fluid
#History of COPD (chronic emphysema)
#History of asbestosis
Continue rescue and maintenance inhalers
CXR 06/09
Chronic right hydropneumothorax with small volume of pleural fluid, similar to previous examination. Small left effusion and adjacent atelectasis, increased as compared to previous.
EKG 06/09/25
ATRIAL FIBRILLATION
LEFT AXIS DEVIATION
LEFT VENTRICULAR HYPERTROPHY WITH QRS WIDENING ( [place] product ,
Romhilt-Bolivar )
ABNORMAL ECG
WHEN COMPARED WITH ECG OF 18-Jan-2025 06:27,
NO SIGNIFICANT CHANGE WAS FOUND
CODE STATUS DNR
DVT prophylaxis Eliquis
--- NOTE | 2025-06-09 11:07 | CM ---
Chart reviewed. Spoke with patient and his NAINA Sauceda, of dtr Carmen at ED bedside
Patient had thoracentesis done 2 weeks ago as outpt. Sohail CHEW was able to provide transportation
Lives alone in [address] apartment community with elevator access
DME walker
Independent with ADLs, walking daily a mile
Drives
NAINA and dtr Carmen live about 25 min away from patient
PCP Dr. Maile Gutierres
[facility]
hx of [facility]
no hx of SNF
DCP is home with services?
Pt would rather not have [facility]N but would discuss with care team at the time of DC
NAINA can provide transportation
Cm will continue to follow up for any dcp needs
[2025-06-09 11:30] LABS: Iron 34 ug/dl (49-181)
--- NOTE | 2025-06-09 11:50 | CON.PUL ---
Consultation
Consultation Request
Date/Time Consultation Requested: 06/09/2025-11:30 AM
Date/Time Consultation Performed: 06/09/2020 5-11 40 5 AM
Requesting Provider: Hospitalist
Performing Provider: Dr. Damian
Reason for Consultation: Shortness of breath
Medical History
-
Chief Complaint: Shortness of breath
History of Present Illness:
85-year-old former smoking male with underlying COPD, chronic atrial fibrillation on Eliquis, Hypertension, stage IIIB chronic kidney disease,chronic CHF, and chronic right hydropneumothorax requiring repetitive thoracenteses who presented with
increasing shortness of breath and pulmonary consulted for shortness of breath/hypoxemia 06/09/2025. He is feeling improved since he came into the emergency room. He is on oxygen now. He denies any chest pain, chest congestion, cough, pleurisy,
abdominal pain, nausea, increased leg swelling or focal weakness.
Past Medical History
Past Medical History: None (COPD. Recurrent pleural effusion. Chronic hydropneumothorax. Chronic kidney disease. Atrial fibrillation/Eliquis. Asbestosis. Pulmonary nodule. Hypertension. Hernia repair. Vasectomy. Thoracentesis.)
Social History
Tobacco: Former Smoker ([id number] quit 1999)
Alcohol: Occasional
Drug: None
Personal:
Living: With Family
Occupational Exposures: Patient with known asbestos exposure
Environmental Exposures: No known tuberculosis exposure
Family History
Family History: Reviewed & Not Pertinent (Father-CVA. Mother of natural causes at 94)
Allergies / Home Medications
Allergies
Allergy/AdvReac Type Severity Reaction Status Date / Time
No Known Allergies Allergy Verified 06/09/25 07:37
Home Medications
�Medication �Instructions �Recorded �Confirmed �Last Taken �Type
atorvastatin 10 mg tablet 10 mg PO QPM High cholesterol 12/26/19 06/09/25 06/08/25 History
apixaban 2.5 mg tablet (Eliquis) 2.5 mg PO BID Blood clot 10/22/22 06/09/25 06/09/25 History
prevention/tx
coenzyme Q10 100 mg capsule (Co 100 mg PO DAILY Supplement 10/22/22 06/09/25 06/09/25 History
Q-10)
doxazosin 4 mg tablet 4 mg PO QPM Urinary issue 10/22/22 06/09/25 06/08/25 History
isosorbide mononitrate 30 mg 30 mg PO DAILY Heart 11/15/22 06/09/25 06/09/25 History
tablet,extended release 24 hr disease/condition
hydralazine 50 mg tablet 50 mg PO TID Blood Pressure 01/08/23 06/09/25 06/09/25 History
furosemide 80 mg tablet 80 mg PO DAILY Fluid 07/30/23 06/09/25 06/09/25 History
Retention/Swelling
empagliflozin 10 mg tablet 10 mg PO DAILY Heart Failure 08/28/23 06/09/25 06/09/25 History
(Jardiance)
therapeutic multivitamin 1 tab PO DAILY Supplement 09/17/24 06/09/25 06/09/25 History
Lactobac no.2-Bifidobac no.1-S. 1 cap PO DAILY Supplement 06/09/25 06/09/25 06/09/25 History
thermo 112.5 billion cell capsule
(Visbiome)
albuterol sulfate 90 mcg/actuation 2 puff inhalation R Q6HPRN PRN sob 06/09/25 06/09/25 Unknown History
aerosol inhaler
metoprolol succinate 100 mg 100 mg PO BID Heart 06/09/25 06/09/25 06/09/25 History
tablet,extended release 24 hr Disease/Condition
(Toprol XL)
polyethylene glycol 3350 17 gram 17 g PO DAILYPRN PRN constipation 06/09/25 06/09/25 Unknown History
oral powder packet (Miralax)
umeclidinium 62.5 mcg-vilanterol 1 inh inhalation R DAILY 06/09/25 06/09/25 Unknown History
25 mcg/actuation powdr for Lung/Breathing Issues
inhalation (Anoro Ellipta)
Review of Systems
-
Unable to Obtain full review of systems at this time due to: Other ( per HPI)
Vitals / Labs / Diagnostic Testing
Vital Signs
Temp Pulse Resp BP Pulse Ox
98.2 F 69 24 121/48 98
06/09/25 07:37 06/09/25 10:53 06/09/25 10:53 06/09/25 10:53 06/09/25 10:00
Lab Data
06/09/25 08:11
06/09/25 09:04
Diagnostic Testing:
Physical Exam
-
Exam:
well-nourished and well-developed in no apparent distress
HEENT-atraumatic, normocephalic
Neck-supple, no JVD, no bruit
Heart-regular rate and rhythm-no murmurs, rubs or gallops
Chest-clear to auscultation, no wheezes, crackles
Back-no tenderness
Abdomen-soft, nontender, nondistended, no hepatosplenomegaly
Extremities-no cyanosis, clubbing, edema and good peripheral pulses
Integument-intact, no rashes, lesions or ecchymosis
Neurology-alert and oriented, nonfocal motor and sensory exam
Assessment
-
85-year-old former smoking male with underlying COPD, chronic atrial fibrillation on Eliquis, Hypertension, stage IIIB chronic kidney disease,chronic CHF, and chronic right hydropneumothorax requiring repetitive thoracenteses who presented with
increasing shortness of breath and pulmonary consulted for shortness of breath/hypoxemia 06/09/2025.
Acute on top of chronic shortness of breath with some volume overload and significantly elevated proBNP.
Chronic right hydropneumothorax/trapped lung, status post multiple thoracenteses-last one 05/18/25--9 and 50 mL his fingers fluid.
CHF with reduced EF.
Leukocytosis..
Permanent A. fib ablation on Eliquis
Conditions present prior to admission:
COPD.
Recurrent pleural effusion-status post multiple thoracenteses
History hydropneumothorax.
Chronic kidney disease-baseline serum creatinine 1.8-2.2
Atrial fibrillation/Eliquis.
Asbestosis.
Pulmonary nodule.
Hypertension.
Hernia repair. Vasectomy. Thoracentesis.
Plan
Respiratory decompensation, likely related to fluid overload and less likely pneumonia/COPD/increased pleural effusion.
Supplemental oxygen as needed.
Assessment discharge. Supplemental oxygen needs prior to discharge, slightly nebulizers as needed-currently not bronchospastic.
Continue Striverdi and Spiriva.
Incentive spirometry.
Aspiration precautions.
No obvious infection.
Monitor Leukocytosis.
Observe off antibiotics
Diuresis as tolerated.
Monitor renal function, weight, electrolytes, creatinine and edema.
Check echocardiogram.
Cardiology consultation pending.
Atrial fibrillation. Rate control.
Chronic anticoagulation with pelvic Les
DVT prophylaxis-on Eliquis
Nutrition
Early mobilization.
Reviewed with ED physicians and family member at bedside
Saw Dr. Almanzar 03/25/2025 and Kathleen VELEZ on 05/21/2025-has appointment to see Dr. Almanzar 06/22/2025 at 11:30 AM
Diagnostic data:
Chest x-ray 06/09/25-chronic right hydropneumothorax. A small volume of pleural effusion similar to previous exam, small left effusion and atelectasis, increased compared to previous
Chest x-ray 06/16-persistent moderate right sided hydropneumothorax, element of trapped lung, suspected, unchanged small left pleural effusion
CXR 05/18/2025: Interval thoracentesis with decrease in size of right pleural effusion. Hydropneumothorax located in the inferior and lateral aspect of the right hemithorax, moderate in size and in the region of previous pleural effusion. Findings
suggesting rounded atelectasis/scarring within the right lower lung. Hyperinflated lungs compatible with COPD. Small left pleural effusion, stable.
Right thoracentesis 05/18/2025: 950 cc serosanguineous pleural fluid
CXR 03/12/25: right basilar hydropneumothorax, no change
CXR 10/20/24: moderate right basilar hydropneumothorax, stable compared to 09/21/24
CXR 09/21/2024: Stable moderate right basilar pneumothorax. Stable possible left pneumothorax versus skinfold.� This could be confirmed by CT exam.� Small loculated left pleural effusion. Stable.Right thoracentesis 09/17/2024: 900 cc serosanguineous
pleural fluidCT Chest 09/17/24: Moderate right pleural effusion, somewhat similar in volume compared to prior CT 04/18/2023 with likely accompanying chronic right lower lobe consolidation. Few scattered tiny pulmonary nodules predominantly stable
except for new tiny right upper lobe pulmonary nodule. Tiny left pleural effusion with accompanying left lower lobe subsegmental atelectasis.� Marked changes of emphysema again seen.
CXR 08/28/23: moderate right middle lobe and right lower lobe pneumonia. This has worsened compared to 08/02/23
CXR 04/18/2023: Stable small right pleural effusion. Left basilar chest tube remains in place. No pneumothorax.
CT chest 04/18/2023: Trace left pleural fluid and minuscule left pneumothorax with a left basilar chest tube in stable position. Moderate right pleural effusion with adjacent right lower lobe compressive atelectasis. Improvement/resolution of the
left lower lobe consolidation. Advanced emphysema. Scattered small pulmonary nodules in both lungs, largest measuring 5 mm in the left lower lobe.
CT chest 04/15/2023: Less than 10% left-sided pneumothorax despite the presence of left-sided chest tube with its tip at the posterior lateral left lung base. Extensive centrilobular emphysema. Moderate acute versus chronic acinar airspace disease
with associated bronchiectasis throughout the left lower lobe. Mild cardiomegaly without associated pulmonary edema.Left chest tube placed 04/14/2023.
Echo 01/19/25: EF 25%, global hypokinesis, moderate mitral regurgitation, PA pressure 67
Echo 09/19/24: Normal LV size. Mildly reduced LV systolic function. EF 40 to 45%.� Global hypokinesis. Mild concentric LVH.� Normal RV size and function. Moderate MR. Mild to moderate
PFT 09/26/23: FVC 4.64/118%, FEV1 2.82/102%, ratio 61. TLC 8.62/121%, RV 4.01/137%, RV/TLC ratio 47, DLCO 9.26/37%.
6MWT 03/25/25: Total distance 750 feet, 90% on room air, heart rate 76, dyspnea scle 09/01
04/16/2023: Left pleural fluid negative for malignant cells; WBC 1393, protein 3, LDH 304
09/17/2024: Right pleural fluid negative for malignant cells; pH 7.39, WBC 609, protein 2.4
Rt Thora 01/19/25: -1 L, mononuclear predominant, transudate, cultures negative, cytology negative, numerous inflammatory cells predominantly lymphocytes
05/18/2025: Right pleural fluid negative for malignant cells
Data Reviewed
-
Total Time Spent with Patient (in minutes): 65
[2025-06-09 12:05] LABS: Ferritin 120.0 ng/ml (17.9-464.0)
[2025-06-09 12:13] LABS: COVID-19 Antigen Negative (Negative)
--- NOTE | 2025-06-09 12:22 | W.PN.UPDATE ---
Update Note
Progress Note Update
I have personally supervised the history, physical exam, medical decision-making, and care plan for this patient in conjunction with the resident. I have reviewed and discussed the resident's documentation and findings. I confirm that this note
accurately reflects my supervision and input in the care of this patient.
History of Presenting Illness
85-year-old male with history of permanent A-fib (on Eliquis), CHF, COPD, stage IIIb CKD, hypertension, right chronic hydropneumothorax (recent thoracentesis 05/18/25), not on home oxygen, presented with shortness of breath; patient had woken up
from sleep last night due to significant shortness of breath. Patient tried to relieve his symptoms by went sitting on a recliner, he then woke up by around 5 AM wanting to go to the restroom but he noticed significant shortness of breath on
exertion which resolved when he rested. Upon arrival to the ED patient was found to be hypoxic requiring 2 L of oxygen. He denied chest pain, lower extremity edema or palpitations. He has a history of right chronic hydropneumothorax with recent
thoracentesis on 05/18 yielding 950 cc of serosanguineous fluid. He denied any recent travels, cough/fever/chills, sick contacts.
Vital Signs
Afebrile
RRR
Blood pressure normal to elevated range
RR okay
O2 saturation 90s on 2 L NC oxygen
Physical Exam
General: Not in acute distress
HEENT: Normocephalic, Moist mucous membranes, black hairy tongue present
Respiratory: Decreased Breath Sounds (Bilaterally)
Cardiac: S1 and S2. Irregular Rhythm
GI: Soft, Non Tender and Non Distended. Positive bowel sounds.
Musculoskeletal: No Cyanosis and No Edema
Skin: Warm and Dry
Neuro: Awake, Alert and Oriented
Psych: Calm
Assessment/Plan
#Acute hypoxic respiratory failure in setting of chronic lung disease
Currently on 2 L of oxygen saturating 98%
Mildly fluid overloaded----- check echocardiogram
Normal troponin
Elevated proBNP 21605
Previous left ventricular ejection fraction 12/2024--- LVEF 45 to 50%
Chest x-ray showing right chronic hydropneumothorax/trapped lung
Recent thoracentesis 05/18/25 yielding 950 cc of serosanguineous fluid
Consult cardiology and pulmonology (both were involved in patient's case last hospitalization as well)
Suspected that patient's presenting signs and symptoms are more consistent with CHF rather than pulmonary issues
#Acute on chronic heart failure with mildly reduced ejection fraction
Check echo
Check daily weights
Continue IV Lasix 40 mg twice daily
Will probably benefit from increased cumulative Lasix dose outpatient
Continue continue home medications (GDMT)
Consult cardiology
Previous left ventricular ejection fraction 12/2024--- LVEF 45 to 50%
#Leukocytosis
Currently afebrile, WBC of 11.5
No concerns for infection at this time
Monitor white count and temperature curve
#Permanent A-fib
-Continue Eliquis and beta elias
-Patient was previously on Digoxin but that was stopped due to bradycardia
#History of CKD 3 stage IIIb
Baseline creatinine 1.8-2.2
Current creatinine 1.6
Continue to monitor in the setting of acute heart failure and IV diuresis
#Essential hypertension
Continue home medications
#Hyperlipidemia
Continue atorvastatin
#History of pleural effusion
#History of right chronic hydropneumothorax
Recent thoracentesis 05/18 yielding 950 cc of serosanguineous fluid
#History of COPD (chronic emphysema)
#History of asbestosis
Continue rescue and maintenance inhalers
#�Black hairy� tongue present on patient's tongue on 06/09/25
-Likely from poor hygiene, dryness.
-Treat with hydration (but cannot give IV fluids given CHF exacerbation), tongue brushing and cover with antibiotics like Amoxicillin 875 mg BID x 7 days
DVT Prophylaxis: Eliquis
--- NOTE | 2025-06-09 13:56 | CON.CAR ---
Addendum entered and electronically signed by Jogn Victor DO 06/09/25 17:28:
I saw and examined the patient.
The [employer] Chief's note was reviewed and I agree with the note.
Comment:
Plan:
Presenting 06/09/2025 with progressive dyspnea on exertion/shortness of breath, orthopnea and PND found to be in acute heart failure with recurrent R pleural effusion.
Continue IV Lasix diuresis for heart failure with pBNP 12,900
Patient was on Lasix 80 mg prior to admission. May benefit from increased dose as an outpatient
Continue to monitor renal function and electrolytes, daily weights and I's and O's.
Creatinine appears to be at baseline 1.6
Echo repeated this admission unchanged from prior study with EF of 45% moderate MR mild to moderate AI/TR.
Chronic right-sided hydropneumothorax with pleural effusion
Patient had right thoracentesis in August 2024 and again in April 2025.
Pulmonary has been consulted.
Continue Toprol for rate control for permanent atrial fibrillation and Eliquis for stroke prophylaxis.
Discussed with nursing.
Original Note:
Consultation
Consultation Request
Date/Time Consultation Requested: 06/09/2025
Date/Time Consultation Performed: 06/09/2025
Requesting Provider: Dr. Naye Simpson, resident
Performing Provider: Medina Hernadez PA-C for Dr. Victor
Reason for Consultation: Heart failure
Medical History
-
Chief Complaint: Shortness of breath
History of Present Illness:
Patient is an 85-year-old man past medical history of heart failure with reduced ejection fraction, non-ischemic cardiomyopathy, permanent atrial fibrillation, chronic anticoagulation on Eliquis, left bundle branch block, chronic right trapped
hydropneumothorax who presents to ED 06/09/2025 with worsening SOB for several days and noted orthopnea on the night. He denies weight gain or edema. He recently underwent right thoracentesis 05/18. CXR shows Chronic right hydropneumothorax with
small volume of pleural fluid, similar to previous examination. Small left effusion [place] [address]. Troponin was unremarkable at 0.024. ECG showed rate controlled atrial fibrillation. He received IV Lasix 40 mg
in ED. patient reports good response to IV Lasix.
PMHx:
HFrEF
Right-sided pleural effusion
s/p R thoracentesis w/ 900 cc serosanguineous fluid removed 09/17/2024, s/p right thoracentesis 950 cc of serosanguineous pleural fluid
h/o spontaneous left-sided hydropneumothorax with exudative fluid on cytology managed with chest tube and antibiotics 03/2023
Cardiomyopathy, EF 40-45%
CKD 3b
Permanent Afib
Chronic Eliquis OAC
HTN
Mild AR
Mod MR
Chronic LBBB
Hyperlipidemia
Palpable abdominal aorta -normal aortic ultrasound 11/2022
h/o C.diff
Past Medical History
Past Medical History: Other (As above)
Past Surgical History: Other (As above)
Social History
Tobacco: Former Smoker
Alcohol: Occasional
Personal:
Family History
Family History: Reviewed & Not Pertinent
Allergies / Home Medications
Allergy/AdvReac Type Severity Reaction Status Date / Time
No Known Allergies Allergy Verified 06/09/25 07:37
�Medication �Instructions �Recorded �Confirmed �Type
atorvastatin 10 mg tablet 10 mg PO QPM High cholesterol 12/26/19 06/09/25 History
apixaban 2.5 mg tablet (Eliquis) 2.5 mg PO BID Blood clot 10/22/22 06/09/25 History
prevention/tx
coenzyme Q10 100 mg capsule (Co 100 mg PO DAILY Supplement 10/22/22 06/09/25 History
Q-10)
doxazosin 4 mg tablet 4 mg PO QPM Urinary issue 10/22/22 06/09/25 History
isosorbide mononitrate 30 mg 30 mg PO DAILY Heart 11/15/22 06/09/25 History
tablet,extended release 24 hr disease/condition
hydralazine 50 mg tablet 50 mg PO TID Blood Pressure 01/08/23 06/09/25 History
furosemide 80 mg tablet 80 mg PO DAILY Fluid 07/30/23 06/09/25 History
Retention/Swelling
empagliflozin 10 mg tablet 10 mg PO DAILY Heart Failure 08/28/23 06/09/25 History
(Jardiance)
therapeutic multivitamin 1 tab PO DAILY Supplement 09/17/24 06/09/25 History
Lactobac no.2-Bifidobac no.1-S. 1 cap PO DAILY Supplement 06/09/25 06/09/25 History
thermo 112.5 billion cell capsule
(Visbiome)
albuterol sulfate 90 mcg/actuation 2 puff inhalation R Q6HPRN PRN sob 06/09/25 06/09/25 History
aerosol inhaler
metoprolol succinate 100 mg 100 mg PO BID Heart 06/09/25 06/09/25 History
tablet,extended release 24 hr Disease/Condition
(Toprol XL)
polyethylene glycol 3350 17 gram 17 g PO DAILYPRN PRN constipation 06/09/25 06/09/25 History
oral powder packet (Miralax)
umeclidinium 62.5 mcg-vilanterol 1 inh inhalation R DAILY 06/09/25 06/09/25 History
25 mcg/actuation powdr for Lung/Breathing Issues
inhalation (Anoro Ellipta)
Review of Systems
-
History Source: Patient
All other systems: Negative unless noted
Physical Exam
Vital Signs
Temp Pulse Resp BP Pulse Ox
97.6 F 78 12 128/63 98
06/09/25 12:56 06/09/25 12:56 06/09/25 12:56 06/09/25 12:56 06/09/25 12:56
GEN: No distress, awake, Ox3, sitting in bed on oxygen
HEENT: supple, anicteric, mmm
LUNGS: Mildly decreased at bases CTA, no wheezes/rales
CV: Reg, S1/S2, 1/6 syst LSB, no murmur
ABD: soft, BS+, NT/ND
EXT: No edema
NEURO: Gross non-focal
SKIN: No rash
Lab Results
06/09/25 08:11
06/09/25 09:04
Troponin I 0.024 ng/ml 06/09/25 09:04
Ruo-G-Vqkrbskgptw Pept 36347 pg/ml 06/09/25 08:11
Impression / Plan
-
.
PCP: Dr. Gutierres
Cardiology: Dr. SOCORRO Benjamin
Nephrology: Dr. Lao
Impression:�
Presented 06/09/2025 with SOB/SHAH and orthopnea/PND
Acute on chronic HFrEF, proBNP 12,900
Recurrence of right-sided hydropneumothorax with pleural effusion
s/p R thoracentesis w/ 900 cc serosanguineous fluid removed 09/17/2024
s/p R thoracentesis w/ 950 cc serosanguineous fluid removed 05/18/2025
Longstanding Cardiomyopathy, EF 45%
CKD 3b
Permanent Afib
Chronic Eliquis OAC
HTN
Mild AR
Mod MR
Chronic LBBB
Hyperlipidemia
Palpable abdominal aorta -normal aortic ultrasound 11/2022
h/o C.diff
Lexiscan mibi 01/10/23: No evidence of ischemia
Echo 04/11/21: EF 45-50%, mild conc LVH, mild MR, mild aortic regurgitation
Echo 10/23/22: EF 40%, moderate MR, mild aortic regurgitation, mod TR with PASP 49 mmHg
Echo 04/16/23: Ejection fraction 25 to 30%, moderate MR, aortic sclerosis with mild AI, pleural effusions
Echo 05/18/23: EF 27% by volumetric assessment and 41% by Nunez
Echo 08/29/2023: EF 36-41%, stage I diastolic dysfunction, mild-mod MR, mild-mod AR, mild-mod TR, estimated PAP 60-70 mmHg
Echo 06/09/2025: EF 45%. Mild concentric LVH. Moderate MR. Mild to moderate AI and TR. PAP 57 mmHg
Plan:
-Presenting 06/09/2025 with progressive dyspnea on exertion/shortness of breath, orthopnea and PND found to be in acute heart failure with recurrent R pleural effusion.
-Acute heart failure, proBNP 12,900
Patient received Lasix 40 mg IV in ED. Reports good response
Continue IV diuresis with Lasix 40 mg IV twice daily
Patient was on Lasix 80 mg prior to admission. May benefit from increased dose such as 80 mg in a.m. and 40 mg in p.m. on Sunday, other days 80 mg.
Continue to monitor renal function and electrolytes
Creatinine appears to be at baseline 1.6
Wean oxygen as able, currently on 2 L
Continue Imdur/hydralazine and SGLT2. Patient not on LAURA/ARB/ARNI secondary to CKD
Echo repeated this admission unchanged from prior study with EF of 45% moderate MR mild to moderate AI/TR.
-Chronic right-sided hydropneumothorax with pleural effusion
Patient had right thoracentesis in August 2024 and again in April 2025.
Pulmonary has been consulted. Per review of outpatient records high chance of ongoing reaccumulation of fluid
-Known permanent atrial fibrillation, rates well-controlled
Continue Eliquis at 2.5mg BID
Continue Toprol for rate control. Previously digoxin was discontinued due to bradycardia
HPI 06/09/2025:
Patient is an 85-year-old man past medical history of heart failure with reduced ejection fraction, non-ischemic cardiomyopathy, permanent atrial fibrillation, chronic anticoagulation on Eliquis, left bundle branch block, chronic right trapped
hydropneumothorax who presents to ED 06/09/2025 with worsening SOB for several days and noted orthopnea on the night. He denies weight gain or edema. He recently underwent right thoracentesis 05/18. CXR shows Chronic right hydropneumothorax with
small volume of pleural fluid, similar to previous examination. Small left effusion [place] [address]. Troponin was unremarkable at 0.024. ECG showed rate controlled atrial fibrillation. He received IV Lasix 40 mg
in ED. patient reports good response to IV Lasix.
Data Reviewed
-
EKG: Report Reviewed by me, Discussed with Physician and Discussed with Patient
Radiology: Report Reviewed by me, Discussed with Physician and Discussed with Patient
Labs: Labs Reviewed by me, Discussed with Physician and Discussed with Patient
Old Records: Reviewed
[2025-06-09] MEDS: APRESOLINE 50 MG PO ×2 (15:25→21:14)
[2025-06-09] MEDS: LIPITOR 10 MG PO (17:03)
[2025-06-09] MEDS: CARDURA 4 MG PO (17:03)
[2025-06-09 19:10] LABS: Total Iron Binding Capacity 246 ug/dl (261-462)
[2025-06-09] MEDS: AUGMENTIN 875 MG/125 MG 1 TABLET PO (20:15)
[2025-06-09] MEDS: ELIQUIS 2.5 MG PO (20:15)
[2025-06-09] MEDS: TOPROL XL 100 MG PO (20:17)
[2025-06-10 02:57] VITALS: BP 124/64
--- NOTE | 2025-06-10 03:18 | DOWNTIME ---
There was a [employer] Downtime on 06/10/2025 from 0100 to 06/10/2025 at 0255. Downtime documentation of patient's care, including medication administrations, has been reconciled in the electronic record per guidelines. Refer to the
patient's paper chart under the miscellaneous tab to see printed paper medication records and downtime forms.
[2025-06-10 06:00] VITALS: BMI 20.4
[2025-06-10 07:26] VITALS: BP 112/51
[2025-06-10 07:35] LABS: Hematocrit 47.3 % (39.0-52.0); Hemoglobin 14.5 g/dL (13.0-18.0); Mean Corp Hgb Conc. 30.7 g/dL (33.0-37.0); Mean Corpuscular Volume 80.6 fL (80.0-94.0); Platelet Count 495 10^3/uL (130-400); Red Cell Dist. Width 17.3 % (11.5-14.5)
--- NOTE | 2025-06-10 07:37 | W.PN.HOSP.TC ---
Today's Communication/Plan
-
Continue IV Lasix
Monitor on telemetry given CHF
See plan
Assessment / Plan
Assessment / Plan
Physical Exam
General: Not in acute distress
HEENT: Normocephalic, Moist mucous membranes, black hairy tongue present (black hair tongue has improved)
Respiratory: Decreased Breath Sounds (Bilaterally) and some rhonchi bilaterally
Cardiac: S1 and S2. Irregular Rhythm
GI: Soft, Non Tender and Non Distended. Positive bowel sounds.
Musculoskeletal: No Cyanosis and No Edema
Skin: Warm and Dry
Neuro: Awake, Alert and Oriented
Psych: Calm
Assessment/Plan
85-year-old male with history of permanent A-fib (on Eliquis), CHF, COPD, stage IIIb CKD, hypertension, right chronic hydropneumothorax (recent thoracentesis 05/18/25), not on home oxygen, presented with shortness of breath; patient had woken up
from sleep last night due to significant shortness of breath. Patient tried to relieve his symptoms by went sitting on a recliner, he then woke up by around 5 AM wanting to go to the restroom but he noticed significant shortness of breath on
exertion which resolved when he rested. Upon arrival to the ED patient was found to be hypoxic requiring 2 L of oxygen. He denied chest pain, lower extremity edema or palpitations. He has a history of right chronic hydropneumothorax with recent
thoracentesis on 05/18 yielding 950 cc of serosanguineous fluid. He denied any recent travels, cough/fever/chills, sick contacts.
#Acute hypoxic respiratory failure in setting of chronic lung disease and acute HFrEF
Currently on 2 L of oxygen saturating 98%
Mildly fluid overloaded
Echo repeated this admission, and unchanged from prior study with EF of 45% moderate MR mild to moderate AI/TR
Elevated proBNP 69899
Previous left ventricular ejection fraction 12/2024--- LVEF 45 to 50%
Chest x-ray showing right chronic hydropneumothorax/trapped lung
Recent thoracentesis 05/18/25 yielding 950 cc of serosanguineous fluid
Consult cardiology and pulmonology (both were involved in patient's case last hospitalization as well)
Suspected that patient's presenting signs and symptoms are more consistent with CHF rather than pulmonary issues
#Acute on chronic heart failure with mildly reduced ejection fraction
Echo as above
Check daily weights
Continue IV Lasix 40 mg twice daily
Will probably benefit from increased cumulative Lasix dose outpatient
Continue continue home medications (GDMT)
Consult cardiology
Previous left ventricular ejection fraction 12/2024--- LVEF 45 to 50%
#Leukocytosis - RESOLVED
Currently afebrile, WBC of 11.5
No concerns for infection at this time
Monitor white count and temperature curve
#Permanent A-fib
-Continue Eliquis and beta elias
-Patient was previously on Digoxin but that was stopped due to bradycardia
#History of CKD 3 stage IIIb
Baseline creatinine 1.8-2.2
Current creatinine 1.6
Continue to monitor in the setting of acute heart failure and IV diuresis
#Essential hypertension
Continue home medications
#Hyperlipidemia
Continue atorvastatin
#History of pleural effusion
#History of right chronic hydropneumothorax
Recent thoracentesis 05/18 yielding 950 cc of serosanguineous fluid
#History of COPD (chronic emphysema)
#History of asbestosis
Continue rescue and maintenance inhalers
#�Black hairy� tongue present on patient's tongue on 06/09/25
-Likely from poor hygiene, dryness.
-Treat with hydration (but cannot give IV fluids given CHF exacerbation), tongue brushing and cover with antibiotics like renally dosed Augmentin x 7 days (last day is 06/16/25)
-NOW IMPROVING
DVT Prophylaxis: Eliquis
Anticipated Discharge: 24 - 48 hours
Subjective/Interval History
-
Date of Service: June 10, 2025
Patient was seen and examined. He reported that overall, he was feeling better today.
Objective Data
-
Labs:
Laboratory Results
06/10/25
07:08
WBC 8.2
Hgb 14.5
Hct 47.3
Plt Count 495 H
Sodium Pending
Potassium Pending
Chloride Pending
Carbon Dioxide Pending
BUN Pending
Creatinine Pending
Glucose Pending
Calcium Pending
Vital Signs:
Vital Signs
Temp Pulse Resp BP Pulse Ox
97.6 F 70 16 112/51 97
06/10/25 07:26 06/10/25 07:26 06/10/25 07:26 06/10/25 07:26 06/10/25 07:26
I&O
06/09/25 06/10/25 06/11/25
06:59 06:59 06:59
Intake Total 720 / 720
Output Total 2150 / 2150
Balance -1430 / -1430
[2025-06-10] MEDS: STRIVERDI RESPIMAT 2 PUFF INH (07:43)
[2025-06-10] MEDS: SPIRIVA RESPIMAT 2.5 MCG 2 PUFF INH (07:43)
[2025-06-10 08:07] LABS: Blood Urea Nitrogen 40 mg/dl (9-20); Calcium 8.8 mg/dl (8.4-10.2); Carbon Dioxide 35 mmol/L (22-30); Chloride 99 mmol/L (98-107); Estimated Creatinine Clearance 28 ml/min; Glucose 90 mg/dl (70-99); Magnesium 2.3 mg/dl (1.6-2.3); Potassium 4.0 mmol/L (3.5-5.1); Sodium 138 mmol/L (135-145); eGFR 36.66
[2025-06-10] MEDS: IMDUR (EXTENDED RELEASE) 30 MG PO (08:29)
[2025-06-10] MEDS: THERAGRAN 1 TABLET PO (08:29)
[2025-06-10] MEDS: TOPROL XL PO (08:29)
[2025-06-10] MEDS: APRESOLINE PO ×2 (08:29→08:38)
[2025-06-10] MEDS: LASIX 40 MG IV ×2 (08:29→15:39)
[2025-06-10] MEDS: FARXIGA 10 MG PO (08:30)
[2025-06-10] MEDS: AUGMENTIN 875 MG/125 MG 1 TABLET PO (08:30)
[2025-06-10] MEDS: ELIQUIS 2.5 MG PO ×2 (08:30→20:53)
[2025-06-10] MEDS: VISBIOME 1 CAP PO (08:30)
--- NOTE | 2025-06-10 09:22 | W.PN.PUL.V3 ---
Today's Communication / Plan
-
Wean oxygen
Antibiotics
Gentle diuresis
Outpatient pulmonary follow-up
Assessment
-
85-year-old former smoking male with underlying COPD, chronic atrial fibrillation on Eliquis, Hypertension, stage IIIB chronic kidney disease,chronic CHF, and chronic right hydropneumothorax requiring repetitive thoracenteses who presented with
increasing shortness of breath and pulmonary consulted for shortness of breath/hypoxemia 06/09/2025.
Acute on top of chronic shortness of breath with some volume overload and significantly elevated proBNP.
Chronic right hydropneumothorax/trapped lung, status post multiple thoracenteses-last one 05/18/25--9 and 50 mL his fingers fluid.
CHF with reduced EF.
Leukocytosis..
Permanent A. fib ablation on Eliquis
Conditions present prior to admission:
COPD.
Recurrent pleural effusion-status post multiple thoracenteses
History hydropneumothorax.
Chronic kidney disease-baseline serum creatinine 1.8-2.2
Atrial fibrillation/Eliquis.
Asbestosis.
Pulmonary nodule.
Hypertension.
Hernia repair. Vasectomy. Thoracentesis.
Plan
Respiratory decompensation, likely related to fluid overload and less likely pneumonia/COPD/increased pleural effusion.
Supplemental oxygen as needed-2 L - 97% saturation
Assessment discharge supplemental oxygen needs prior to discharge
Nebulizers as needed-currently not bronchospastic.
Continue Striverdi and Spiriva.
Incentive spirometry.
Aspiration precautions.
Chest x-ray reviewed-chronic right hydropneumothorax similar to previous x-ray-no indication for repeat thoracentesis
Sputum culture if able
Monitor Leukocytosis.
Augmentin initiated
Diuresis as tolerated.
Monitor renal function, weight, electrolytes, creatinine and edema.
Check echocardiogram.
Cardiology consultation noted-correspondence reviewed
Atrial fibrillation rate control.
Chronic anticoagulation
DVT prophylaxis-on Eliquis
Nutrition
Early mobilization.
Reviewed with ED physicians and family member at bedside
Saw Dr. Almanzar 03/25/2025 and Kathleen VELEZ on 05/21/2025-has appointment to see Dr. Almanzar 06/22/2025 at 11:30 AM
Diagnostic data:
Chest x-ray 06/09/25-chronic right hydropneumothorax. A small volume of pleural effusion similar to previous exam, small left effusion and atelectasis, increased compared to previous
Chest x-ray 06/16-persistent moderate right sided hydropneumothorax, element of trapped lung, suspected, unchanged small left pleural effusion
CXR 05/18/2025: Interval thoracentesis with decrease in size of right pleural effusion. Hydropneumothorax located in the inferior and lateral aspect of the right hemithorax, moderate in size and in the region of previous pleural effusion. Findings
suggesting rounded atelectasis/scarring within the right lower lung. Hyperinflated lungs compatible with COPD. Small left pleural effusion, stable.
Right thoracentesis 05/18/2025: 950 cc serosanguineous pleural fluid
CXR 03/12/25: right basilar hydropneumothorax, no change
CXR 10/20/24: moderate right basilar hydropneumothorax, stable compared to 09/21/24
CXR 09/21/2024: Stable moderate right basilar pneumothorax. Stable possible left pneumothorax versus skinfold.� This could be confirmed by CT exam.� Small loculated left pleural effusion. Stable.Right thoracentesis 09/17/2024: 900 cc serosanguineous
pleural fluidCT Chest 09/17/24: Moderate right pleural effusion, somewhat similar in volume compared to prior CT 04/18/2023 with likely accompanying chronic right lower lobe consolidation. Few scattered tiny pulmonary nodules predominantly stable
except for new tiny right upper lobe pulmonary nodule. Tiny left pleural effusion with accompanying left lower lobe subsegmental atelectasis.� Marked changes of emphysema again seen.
CXR 08/28/23: moderate right middle lobe and right lower lobe pneumonia. This has worsened compared to 08/02/23
CXR 04/18/2023: Stable small right pleural effusion. Left basilar chest tube remains in place. No pneumothorax.
CT chest 04/18/2023: Trace left pleural fluid and minuscule left pneumothorax with a left basilar chest tube in stable position. Moderate right pleural effusion with adjacent right lower lobe compressive atelectasis. Improvement/resolution of the
left lower lobe consolidation. Advanced emphysema. Scattered small pulmonary nodules in both lungs, largest measuring 5 mm in the left lower lobe.
CT chest 04/15/2023: Less than 10% left-sided pneumothorax despite the presence of left-sided chest tube with its tip at the posterior lateral left lung base. Extensive centrilobular emphysema. Moderate acute versus chronic acinar airspace disease
with associated bronchiectasis throughout the left lower lobe. Mild cardiomegaly without associated pulmonary edema.Left chest tube placed 04/14/2023.
Echo 01/19/25: EF 25%, global hypokinesis, moderate mitral regurgitation, PA pressure 67
Echo 09/19/24: Normal LV size. Mildly reduced LV systolic function. EF 40 to 45%.� Global hypokinesis. Mild concentric LVH.� Normal RV size and function. Moderate MR. Mild to moderate
PFT 09/26/23: FVC 4.64/118%, FEV1 2.82/102%, ratio 61. TLC 8.62/121%, RV 4.01/137%, RV/TLC ratio 47, DLCO 9.26/37%.
6MWT 03/25/25: Total distance 750 feet, 90% on room air, heart rate 76, dyspnea scle 2/10
04/16/2023: Left pleural fluid negative for malignant cells; WBC 1393, protein 3, LDH 304
09/17/2024: Right pleural fluid negative for malignant cells; pH 7.39, WBC 609, protein 2.4
Rt Thora 01/19/25: -1 L, mononuclear predominant, transudate, cultures negative, cytology negative, numerous inflammatory cells predominantly lymphocytes
05/18/2025: Right pleural fluid negative for malignant cells
Subjective Data
-
Date of Service:
Date of Service: June 10, 2025
Chief Complaint: Pulmonary Follow Up and Dyspnea Follow Up
Subjective:
Feels better, no complaints of shortness of breath at rest, no chest pain or abdominal pain
Review of Systems
General: Other (Per HPI)
Objective Data
Data Reviewed
Vital Signs / I&O:
Vital Signs
Temp Pulse Resp BP Pulse Ox
97.6 F 70 16 112/51 97
06/10/25 07:26 06/10/25 08:29 06/10/25 07:26 06/10/25 08:29 06/10/25 07:26
Intake and Output
06/09/25 06/10/25 06/11/25
06:59 06:59 06:59
Intake Total 720 / 720
Output Total 2150 / 2150
Balance -1430 / -1430
SaO2: 97
Nasal Cannula flow liters per minute: 2
Physical Exam
General: Respiratory Distress (n) and Comfortable
HEENT: Normocephalic, Anicteric and Moist Mucous Membranes
Cardiovascular: Regular Rhythm
Respiratory: Wheeze (n), Crackles, Rhonchi (n), Non-Labored Respirations, Accessory Resp Muscle Use and Stridor (n)
GI: Soft, Non Distended and Non Tender
Neurology: Awake, Alert and No Motor Deficits
Skin: Warm, Good Color, Cyanosis (n), Jaundice (n) and Rash (n)
Labs/Micro/Reports
Lab Data
06/10/25 07:08
06/10/25 07:08
Microbiology
06/09/25 11:45 Urine Legionella Urinary Antigen - Final
Negative for Legionella pneumophila Serogroup 1 antigen.
A negative result does not rule out the possiblity of
Legionella infection due to other serogroups or species of
Legionella. Clinical correlation is recommended.
06/09/25 11:45 Urine Streptococcus pneumoniae Antigen (M - Final
Negative for Streptococcus pneumoniae antigen.
A negative result does not exclude infection with
Streptococcus pneumoniae. Clinical correlation is
recommended.
06/09/25 11:45 Nasal Swab Influenza Types A & B (BRITTNEE) - Final
Negative for Influenza A & B, NAAT
Negative results must be combined with clinical observations
and patient history.
Nucleic Acid Amplification test (NAAT)performed on the
obiwon platform.
--- NOTE | 2025-06-10 10:27 | W.PN.CARDCBS ---
Today's Communication / Plan
-
Continue IV Lasix and attempt to wean off of oxygen
Consider change to oral Lasix in 24 hours
Impression / Plan
-
.
PCP: Dr. Gutierres
Cardiology: Dr. SOCORRO Benjamin
Nephrology: Dr. Lao
Impression:�
Presented 06/09/2025 with SOB/SHAH and orthopnea/PND
Acute on chronic HFrEF, proBNP 12,900
Recurrence of right-sided hydropneumothorax with pleural effusion
s/p R thoracentesis w/ 900 cc serosanguineous fluid removed 09/17/2024
s/p R thoracentesis w/ 950 cc serosanguineous fluid removed 05/18/2025
Longstanding Cardiomyopathy, EF 45%
CKD 3b
Permanent Afib
Chronic Eliquis OAC
HTN
Mild AR
Mod MR
Chronic LBBB
Hyperlipidemia
Palpable abdominal aorta -normal aortic ultrasound 11/2022
h/o C.diff
Lexiscan mibi 01/10/23: No evidence of ischemia
Echo 04/11/21: EF 45-50%, mild conc LVH, mild MR, mild aortic regurgitation
Echo 10/23/22: EF 40%, moderate MR, mild aortic regurgitation, mod TR with PASP 49 mmHg
Echo 04/16/23: Ejection fraction 25 to 30%, moderate MR, aortic sclerosis with mild AI, pleural effusions
Echo 05/18/23: EF 27% by volumetric assessment and 41% by Nunez
Echo 08/29/2023: EF 36-41%, stage I diastolic dysfunction, mild-mod MR, mild-mod AR, mild-mod TR, estimated PAP 60-70 mmHg
Echo 06/09/2025: EF 45%. Mild concentric LVH. Moderate MR. Mild to moderate AI and TR. PAP 57 mmHg
Plan:
He is diuresed but possibly up to 9 pound weight loss with IV Lasix
Consider change to oral Lasix in 24 hours
Continue Imdur/hydralazine and SGLT2. Patient not on LAURA/ARB/ARNI secondary to CKD
Echo repeated this admission unchanged from prior study with EF of 45% moderate MR mild to moderate AI/TR.
Chronic right-sided hydropneumothorax with pleural effusion
Patient had right thoracentesis in August 2024 and again in April 2025.
Pulmonary has been consulted. Per review of outpatient records high chance of ongoing reaccumulation of fluid
-Known permanent atrial fibrillation, rates well-controlled
Continue Eliquis at 2.5mg BID
Continue Toprol for rate control. Previously digoxin was discontinued due to bradycardia
HPI 06/09/2025:
Patient is an 85-year-old man past medical history of heart failure with reduced ejection fraction, non-ischemic cardiomyopathy, permanent atrial fibrillation, chronic anticoagulation on Eliquis, left bundle branch block, chronic right trapped
hydropneumothorax who presents to ED 06/09/2025 with worsening SOB for several days and noted orthopnea on the night. He denies weight gain or edema. He recently underwent right thoracentesis 05/18. CXR shows Chronic right hydropneumothorax with
small volume of pleural fluid, similar to previous examination. Small left effusion [place] [address]. Troponin was unremarkable at 0.024. ECG showed rate controlled atrial fibrillation. He received IV Lasix 40 mg
in ED. patient reports good response to IV Lasix.
Progress Note - Fiber Drier Operator
Subjective
Date of Service: June 10, 2025
No complaints
Objective
Labs:
06/10/25 07:08
06/10/25 07:08
Labs
Hgb 14.5 g/dL (13.0-18.0) 06/10/25 07:08
Hct 47.3 % (39.0-52.0) 06/10/25 07:08
Plt Count 495 10^3/uL (130-400) H 06/10/25 07:08
Sodium 138 mmol/L (135-145) 06/10/25 07:08
Potassium 4.0 mmol/L (3.5-5.1) 06/10/25 07:08
BUN 40 mg/dl (9-20) H 06/10/25 07:08
Creatinine 1.8 mg/dL (0.7-1.3) H 06/10/25 07:08
Glucose 90 mg/dl (70-99) 06/10/25 07:08
Troponins
06/09/25 06/09/25
08:21 09:04
Troponin I Cancelled 0.024
Vital Signs and I&O:
Vital Signs
Temp Pulse Resp BP Pulse Ox
97.6 F 70 16 112/51 97
06/10/25 07:26 06/10/25 08:29 06/10/25 07:26 06/10/25 08:29 06/10/25 09:22
Vital Signs
Temp Pulse Resp BP Pulse Ox
97.6 F 70 16 112/51 97
06/10/25 07:26 06/10/25 08:29 06/10/25 07:26 06/10/25 08:29 06/10/25 09:22
Intake & Output
06/08/25 06/09/25 06/10/25 06/11/25
06:59 06:59 06:59 06:59
Intake Total 720 / 720
Output Total 2150 / 2150
Balance -1430 / -1430
Physical Exam
Physical Exam
General: Well developed, well nourished in NAD.
Neck: Supple, no JVD, HJR, carotids +2 B/L, no bruits bilaterally.
Heart: Non displaced PMI, irregular, no murmurs, No S3, S4, no rubs.
Lungs: Scattered rhonchi
Extremities: No clubbing, cyanosis or edema bilaterally.
Neuro: Grossly nonfocal, awake, alert and oriented x3.
[2025-06-10 11:09] VITALS: BP 130/56
[2025-06-10] MEDS: TOPROL XL 100 MG PO ×2 (11:18→20:52)
[2025-06-10 15:23] VITALS: BP 116/56
[2025-06-10] MEDS: APRESOLINE 50 MG PO ×2 (15:39→21:58)
[2025-06-10] MEDS: CARDURA 4 MG PO (17:24)
[2025-06-10] MEDS: LIPITOR 10 MG PO (17:24)
[2025-06-10 19:43] VITALS: BP 126/67
[2025-06-10] MEDS: AUGMENTIN 500 MG/125 MG 1 TABLET PO (20:53)
[2025-06-10 23:55] VITALS: BP 126/62
[2025-06-11 03:25] VITALS: BP 120/73
[2025-06-11 06:00] VITALS: BMI 20.4
[2025-06-11 07:29] VITALS: BP 131/60
[2025-06-11] MEDS: SPIRIVA RESPIMAT 2.5 MCG 2 PUFF INH (07:37)
[2025-06-11] MEDS: STRIVERDI RESPIMAT 2 PUFF INH (07:38)
[2025-06-11 08:09] LABS: Blood Urea Nitrogen 45 mg/dl (9-20); Calcium 8.7 mg/dl (8.4-10.2); Carbon Dioxide 37 mmol/L (22-30); Chloride 98 mmol/L (98-107); Estimated Creatinine Clearance 28 ml/min; Glucose 93 mg/dl (70-99); Potassium 4.2 mmol/L (3.5-5.1); Sodium 138 mmol/L (135-145); eGFR 36.66
--- NOTE | 2025-06-11 08:21 | W.PN.HOSP.TC ---
Today's Communication/Plan
-
Discharge today
Assessment / Plan
Assessment / Plan
Physical Exam
General: Not in acute distress
HEENT: Normocephalic, Moist mucous membranes, black hairy tongue present (black hair tongue has improved)
Respiratory: Decreased Breath Sounds (Bilaterally) and some rhonchi bilaterally
Cardiac: S1 and S2. Irregular Rhythm
GI: Soft, Non Tender and Non Distended. Positive bowel sounds.
Musculoskeletal: No Cyanosis and No Edema
Skin: Warm and Dry
Neuro: Awake, Alert and Oriented
Psych: Calm
Assessment/Plan
85-year-old male with history of permanent A-fib (on Eliquis), CHF, COPD, stage IIIb CKD, hypertension, right chronic hydropneumothorax (recent thoracentesis 05/18/25), not on home oxygen, presented with shortness of breath; patient had woken up
from sleep last night due to significant shortness of breath. Patient tried to relieve his symptoms by went sitting on a recliner, he then woke up by around 5 AM wanting to go to the restroom but he noticed significant shortness of breath on
exertion which resolved when he rested. Upon arrival to the ED patient was found to be hypoxic requiring 2 L of oxygen. He denied chest pain, lower extremity edema or palpitations. He has a history of right chronic hydropneumothorax with recent
thoracentesis on 05/18 yielding 950 cc of serosanguineous fluid. He denied any recent travels, cough/fever/chills, sick contacts.
#Acute hypoxic respiratory failure in setting of chronic lung disease and acute HFrEF
Currently on ROOM AIR (previously was on 2 L of oxygen saturating 98%)
Mildly fluid overloaded
Echo repeated this admission, and unchanged from prior study with EF of 45% moderate MR mild to moderate AI/TR
Elevated proBNP 08052
Previous left ventricular ejection fraction 12/2024--- LVEF 45 to 50%
Chest x-ray showing right chronic hydropneumothorax/trapped lung
Recent thoracentesis 05/18/25 yielding 950 cc of serosanguineous fluid
Consult cardiology and pulmonology (both were involved in patient's case last hospitalization as well)
Suspected that patient's presenting signs and symptoms are more consistent with CHF rather than pulmonary issues
Home oxygen assessment: no home oxygen needed on discharge
#Acute on chronic heart failure with mildly reduced ejection fraction
Echo as above
Check daily weights
Was on IV Lasix 40 mg twice daily this hospitalization, changed to Lasix 80 mg daily on discharge
Will probably benefit from increased cumulative Lasix dose outpatient
Continue continue home medications (GDMT)
Consult cardiology
Previous left ventricular ejection fraction 12/2024--- LVEF 45 to 50%
#Leukocytosis - RESOLVED
Currently afebrile, WBC of 11.5
No concerns for infection at this time
Monitor white count and temperature curve
#Permanent A-fib
-Continue Eliquis and beta elias
-Patient was previously on Digoxin but that was stopped due to bradycardia
#History of CKD 3 stage IIIb
Baseline creatinine 1.8-2.2
Current creatinine 1.8
Continue to monitor in the setting of acute heart failure and diuresis
#Essential hypertension
Continue home medications
#Hyperlipidemia
Continue atorvastatin
#History of pleural effusion
#History of right chronic hydropneumothorax
Recent thoracentesis 05/18 yielding 950 cc of serosanguineous fluid
#History of COPD (chronic emphysema)
#History of asbestosis
Continue rescue and maintenance inhalers
#�Black hairy� tongue present on patient's tongue on 06/09/25
-Likely from poor hygiene, dryness.
-Treat with hydration (but cannot give IV fluids given CHF exacerbation), tongue brushing and cover with antibiotics like renally dosed Augmentin x 7 days (last day is 06/16/25)
-NOW IMPROVING
DVT Prophylaxis: Eliquis
More than 30 minutes spent in discharge including
Final examination of the patient
Summarizing hospital stay
Instructions for continuing care to all relevant caregivers
Preparation of discharge records, prescriptions, and referral forms
Total time spent (in minutes): 40
Anticipated Discharge: Today
Subjective/Interval History
-
Date of Service: June 11, 2025
Patient was seen and examined. He reported feeling much better today, denied any new symptoms or complaints.
Objective Data
-
Labs:
Laboratory Results
06/11/25
07:12
Sodium 138
Potassium 4.2
Chloride 98
Carbon Dioxide 37 H
BUN 45 H
Creatinine 1.8 H
Glucose 93
Calcium 8.7
Vital Signs:
Vital Signs
Temp Pulse Resp BP Pulse Ox
98.6 F 78 16 131/60 98
06/11/25 07:29 06/11/25 07:40 06/11/25 07:40 06/11/25 07:29 06/11/25 07:40
I&O
06/10/25 06/11/25 06/12/25
06:59 06:59 06:59
Intake Total 720 / 720 1440 / 1440
Output Total 2150 / 2150 2230 / 2230
Balance -1430 / -1430 -790 / -790
--- NOTE | 2025-06-11 08:56 | W.PN.PUL.V3 ---
Today's Communication / Plan
-
Wean oxygen
Increase activity
Diuresis as needed
Thoracentesis not needed at this time
Assessment
-
85-year-old former smoking male with underlying COPD, chronic atrial fibrillation on Eliquis, Hypertension, stage IIIB chronic kidney disease,chronic CHF, and chronic right hydropneumothorax requiring repetitive thoracenteses who presented with
increasing shortness of breath and pulmonary consulted for shortness of breath/hypoxemia 06/09/2025.
Acute on top of chronic shortness of breath with some volume overload and significantly elevated proBNP.
Chronic right hydropneumothorax/trapped lung, status post multiple thoracenteses-last one 05/18/25--9 and 50 mL his fingers fluid.
CHF with reduced EF.
Leukocytosis..
Permanent A. fib ablation on Eliquis
Conditions present prior to admission:
COPD.
Recurrent pleural effusion-status post multiple thoracenteses
History hydropneumothorax.
Chronic kidney disease-baseline serum creatinine 1.8-2.2
Atrial fibrillation/Eliquis.
Asbestosis.
Pulmonary nodule.
Hypertension.
Hernia repair. Vasectomy. Thoracentesis.
Plan
Respiratory decompensation, likely related to fluid overload and less likely pneumonia/COPD/increased pleural effusion.
Supplemental oxygen as needed-currently on room air-90% saturation
Assessment discharge supplemental oxygen needs prior to discharge
Nebulizers as needed-currently not bronchospastic.
Continue Striverdi and Spiriva.
Incentive spirometry.
Aspiration precautions.
Chest x-ray reviewed-chronic right hydropneumothorax similar to previous x-ray-no indication for repeat thoracentesis
Sputum culture if able
Monitor Leukocytosis.
Augmentin initiated-finite course
Diuresis as tolerated.
Monitor renal function, weight, electrolytes, creatinine and edema.
Check echocardiogram.
Cardiology consultation noted-correspondence reviewed
Atrial fibrillation rate control.
Chronic anticoagulation
DVT prophylaxis-on Eliquis
Nutrition
Early mobilization.
Saw Dr. Almanzar 03/25/2025 and Kathleen VELEZ on 05/21/2025-has appointment to see Dr. Almanzar 06/22/2025 at 11:30 AM
Diagnostic data:
Chest x-ray 06/09/25-chronic right hydropneumothorax. A small volume of pleural effusion similar to previous exam, small left effusion and atelectasis, increased compared to previous
Chest x-ray 06/16-persistent moderate right sided hydropneumothorax, element of trapped lung, suspected, unchanged small left pleural effusion
CXR 05/18/2025: Interval thoracentesis with decrease in size of right pleural effusion. Hydropneumothorax located in the inferior and lateral aspect of the right hemithorax, moderate in size and in the region of previous pleural effusion. Findings
suggesting rounded atelectasis/scarring within the right lower lung. Hyperinflated lungs compatible with COPD. Small left pleural effusion, stable.
Right thoracentesis 05/18/2025: 950 cc serosanguineous pleural fluid
CXR 03/12/25: right basilar hydropneumothorax, no change
CXR 10/20/24: moderate right basilar hydropneumothorax, stable compared to 09/21/24
CXR 09/21/2024: Stable moderate right basilar pneumothorax. Stable possible left pneumothorax versus skinfold.� This could be confirmed by CT exam.� Small loculated left pleural effusion. Stable.Right thoracentesis 09/17/2024: 900 cc serosanguineous
pleural fluidCT Chest 09/17/24: Moderate right pleural effusion, somewhat similar in volume compared to prior CT 04/18/2023 with likely accompanying chronic right lower lobe consolidation. Few scattered tiny pulmonary nodules predominantly stable
except for new tiny right upper lobe pulmonary nodule. Tiny left pleural effusion with accompanying left lower lobe subsegmental atelectasis.� Marked changes of emphysema again seen.
CXR 08/28/23: moderate right middle lobe and right lower lobe pneumonia. This has worsened compared to 08/02/23
CXR 04/18/2023: Stable small right pleural effusion. Left basilar chest tube remains in place. No pneumothorax.
CT chest 04/18/2023: Trace left pleural fluid and minuscule left pneumothorax with a left basilar chest tube in stable position. Moderate right pleural effusion with adjacent right lower lobe compressive atelectasis. Improvement/resolution of the
left lower lobe consolidation. Advanced emphysema. Scattered small pulmonary nodules in both lungs, largest measuring 5 mm in the left lower lobe.
CT chest 04/15/2023: Less than 10% left-sided pneumothorax despite the presence of left-sided chest tube with its tip at the posterior lateral left lung base. Extensive centrilobular emphysema. Moderate acute versus chronic acinar airspace disease
with associated bronchiectasis throughout the left lower lobe. Mild cardiomegaly without associated pulmonary edema.Left chest tube placed 04/14/2023.
Echo 01/19/25: EF 25%, global hypokinesis, moderate mitral regurgitation, PA pressure 67
Echo 09/19/24: Normal LV size. Mildly reduced LV systolic function. EF 40 to 45%.� Global hypokinesis. Mild concentric LVH.� Normal RV size and function. Moderate MR. Mild to moderate
PFT 09/26/23: FVC 4.64/118%, FEV1 2.82/102%, ratio 61. TLC 8.62/121%, RV 4.01/137%, RV/TLC ratio 47, DLCO 9.26/37%.
6MWT 03/25/25: Total distance 750 feet, 90% on room air, heart rate 76, dyspnea scle 2/10
04/16/2023: Left pleural fluid negative for malignant cells; WBC 1393, protein 3, LDH 304
09/17/2024: Right pleural fluid negative for malignant cells; pH 7.39, WBC 609, protein 2.4
Rt Thora 01/19/25: -1 L, mononuclear predominant, transudate, cultures negative, cytology negative, numerous inflammatory cells predominantly lymphocytes
05/18/2025: Right pleural fluid negative for malignant cells
Subjective Data
-
Date of Service:
Date of Service: June 11, 2025
Chief Complaint: Pulmonary Follow Up and Dyspnea Follow Up
Subjective:
Denies any worsening of breath, chest pain or abdominal pain
Review of Systems
General: Other (Per HPI)
Objective Data
Data Reviewed
Vital Signs / I&O:
Vital Signs
Temp Pulse Resp BP Pulse Ox
98.6 F 78 16 131/60 98
06/11/25 07:29 06/11/25 07:40 06/11/25 07:40 06/11/25 07:29 06/11/25 07:40
Intake and Output
06/10/25 06/11/25 06/12/25
06:59 06:59 06:59
Intake Total 720 / 720 1440 / 1440
Output Total 2150 / 2150 2230 / 2230
Balance -1430 / -1430 -790 / -790
SaO2: 98
Nasal Cannula flow liters per minute: 1
Physical Exam
General: Respiratory Distress (n) and Comfortable
HEENT: Normocephalic, Anicteric and Moist Mucous Membranes
Cardiovascular: Regular Rhythm
Respiratory: Wheeze (n), Crackles, Rhonchi (n), Non-Labored Respirations, Accessory Resp Muscle Use and Stridor (n)
GI: Soft, Non Distended and Non Tender
Neurology: Awake, Alert and No Motor Deficits
Skin: Warm, Good Color, Cyanosis (n), Jaundice (n) and Rash (n)
Labs/Micro/Reports
Lab Data
06/10/25 07:08
06/11/25 07:12
Microbiology
06/09/25 11:45 Urine Legionella Urinary Antigen - Final
Negative for Legionella pneumophila Serogroup 1 antigen.
A negative result does not rule out the possiblity of
Legionella infection due to other serogroups or species of
Legionella. Clinical correlation is recommended.
06/09/25 11:45 Urine Streptococcus pneumoniae Antigen (M - Final
Negative for Streptococcus pneumoniae antigen.
A negative result does not exclude infection with
Streptococcus pneumoniae. Clinical correlation is
recommended.
06/09/25 11:45 Nasal Swab Influenza Types A & B (BRITTNEE) - Final
Negative for Influenza A & B, NAAT
Negative results must be combined with clinical observations
and patient history.
Nucleic Acid Amplification test (NAAT)performed on the
[employer] platform.
[2025-06-11 09:02] VITALS: BP 125/51; PULSE 78; O2SAT 96
[2025-06-11] MEDS: FARXIGA 10 MG PO (09:06)
[2025-06-11] MEDS: VISBIOME 1 CAP PO (09:06)
[2025-06-11] MEDS: ELIQUIS 2.5 MG PO (09:06)
[2025-06-11] MEDS: AUGMENTIN 500 MG/125 MG 1 TABLET PO (09:06)
[2025-06-11] MEDS: THERAGRAN 1 TABLET PO (09:06)
[2025-06-11] MEDS: APRESOLINE 50 MG PO (09:07)
[2025-06-11] MEDS: IMDUR (EXTENDED RELEASE) 30 MG PO (09:07)
[2025-06-11 09:08] VITALS: BP 125/51; PULSE 72; O2SAT 96
[2025-06-11] MEDS: TOPROL XL 100 MG PO (09:08)
[2025-06-11] MEDS: LASIX IV ×2 (09:08→09:27)
--- NOTE | 2025-06-11 09:15 | PTOTSP ---
pt currently requires supervision to no assistance to complete simple ADLs, functional transfers, ambulation. pt reports no difficulty or shortness of breath with activity. educated pt regarding assistance with IADLs until endurance has recovered.
no further acute OT needs identified at this time, will sign off.
[2025-06-11 11:15] VITALS: BP 135/50
--- NOTE | 2025-06-11 12:41 | W.PN.CARDCBS ---
Today's Communication / Plan
-
Check CXR, order placed by me. If stable then patient can be discharged to home
Continue Lasix 80 mg PO daily, order placed by me
Outpatient HF follow-up arranged by cardiology. Discharge instructions and medication list also updated by me
Impression / Plan
-
.
PCP: Dr. Gutierres
Cardiology: Dr. SOCORRO Benjamin
Nephrology: Dr. Lao
Impression:�
Presented with SOB/SHAH and orthopnea/PND 06/09/2025
Acute on chronic HFrEF, proBNP 12,900
Recurrence of right-sided hydropneumothorax with pleural effusion
s/p R thoracentesis w/ 900 cc serosanguineous fluid removed 09/17/2024
s/p R thoracentesis w/ 950 cc serosanguineous fluid removed 05/18/2025
Longstanding Cardiomyopathy, EF 45%
CKD 3b
Permanent Afib
Chronic Eliquis OAC
HTN
Mild AR
Mod MR
Chronic LBBB
Hyperlipidemia
Palpable abdominal aorta -normal aortic ultrasound 11/2022
h/o C.diff
Lexiscan mibi 01/10/23: No evidence of ischemia
Echo 04/11/21: EF 45-50%, mild conc LVH, mild MR, mild aortic regurgitation
Echo 10/23/22: EF 40%, moderate MR, mild aortic regurgitation, mod TR with PASP 49 mmHg
Echo 04/16/23: Ejection fraction 25 to 30%, moderate MR, aortic sclerosis with mild AI, pleural effusions
Echo 05/18/23: EF 27% by volumetric assessment and 41% by Nunez
Echo 08/29/2023: EF 36-41%, stage I diastolic dysfunction, mild-mod MR, mild-mod AR, mild-mod TR, estimated PAP 60-70 mmHg
Echo 06/09/2025: EF 45%. Mild concentric LVH. Moderate MR. Mild to moderate AI and TR. PAP 57 mmHg
Plan:
-Patient was admitted with symptoms of SOB and orthopnea 06/09/2025 and admission has focused on acute HF and diuresis. Pulmonology has been following along for history of recurrent right sided hydropneumothorax.
-Pulmonology note from 06/11/2025 was reviewed by me, no specific changes to his chronic pulmonology regimen. Patient was placed on Augmentin and is set to finish this as an outpatient, but no obvious PNA.
-CXR on admission reviewed by me and showed his chronic right hydropneumothorax with a small volume of pleural fluid and a small left pleural effusion that appeared larger than last CXR 05/26/2025.
-Patient was diuresed with Lasix 40 mg IV BID and weight is down to 142 lbs on 06/11/2025. Patient reports that his previous dry weight was 143 lbs.
-Cre was 1.6 on admission and increased to 1.8 on my review of the labs from 06/11/2025, but overall this is close to his baseline Cre
-proBNP was 12,900 on admission which is a moderate elevation for him. Recheck CXR 06/11/2025 and if stable patient can be discharged to home
-Patient has a history of a left sided hydropneumothorax that was managed with chest tube and eventually antibiotics when cytology indicated an exudative process back in 2022 and more recently he has a right sided hydropneumothorax with the last
thoracentesis being 05/18/2025 for 950 mL of serosanguineous fluid.
-EF 45% by echo 06/09/2025, EF has been as low as 25 to 30% on 04/16/2023
-Outpatient dose of Toprol XL 100 mg BID has been continued
-Patient has known CKD 3b and is not on LAURA/ARB/aldosterone antagonist, but does take a regimen of nitrates and hydralazine. Outpatient doses of Imdur ER 30 mg daily and hydralazine 50 mg BID has been continued
-Outpatient dose of Jardiance 10 mg daily was changed to Farxiga 10 mg daily due to formulary reasons, but patient should resume his usual dose of Jardiance 10 mg daily upon discharge to
-Patient has known permanent A-fib. HR controlled with Toprol-XL as noted above
-Cont Eliquis 2.5 mg BID (age 85, Cre 1.8)
- Communicated with hospitalist attending 06/11/2025, if CXR stable patient can be discharged home
HPI 06/09/2025:
Patient is an 85-year-old man past medical history of heart failure with reduced ejection fraction, non-ischemic cardiomyopathy, permanent atrial fibrillation, chronic anticoagulation on Eliquis, left bundle branch block, chronic right trapped
hydropneumothorax who presents to ED 06/09/2025 with worsening SOB for several days and noted orthopnea on the night. He denies weight gain or edema. He recently underwent right thoracentesis 05/18. CXR shows Chronic right hydropneumothorax with
small volume of pleural fluid, similar to previous examination. Small left effusion [place] [address]. Troponin was unremarkable at 0.024. ECG showed rate controlled atrial fibrillation. He received IV Lasix 40 mg
in ED. patient reports good response to IV Lasix.
Progress Note - Vitreo Retinal Surgeon
Subjective
Date of Service: June 11, 2025
He feels well and wants to go home if his CXR is clear
Objective
Labs:
06/10/25 07:08
06/11/25 07:12
Labs
Hgb 14.5 g/dL (13.0-18.0) 06/10/25 07:08
Hct 47.3 % (39.0-52.0) 06/10/25 07:08
Plt Count 495 10^3/uL (130-400) H 06/10/25 07:08
Sodium 138 mmol/L (135-145) 06/11/25 07:12
Potassium 4.2 mmol/L (3.5-5.1) 06/11/25 07:12
BUN 45 mg/dl (9-20) H 06/11/25 07:12
Creatinine 1.8 mg/dL (0.7-1.3) H 06/11/25 07:12
Glucose 93 mg/dl (70-99) 06/11/25 07:12
Troponins
06/09/25 06/09/25
08:21 09:04
Troponin I Cancelled 0.024
Vital Signs and I&O:
Vital Signs
Temp Pulse Resp BP Pulse Ox
97.0 F 76 16 135/50 97
06/11/25 11:15 06/11/25 11:15 06/11/25 11:15 06/11/25 11:15 06/11/25 11:15
Vital Signs
Temp Pulse Resp BP Pulse Ox
97.0 F 76 16 135/50 97
06/11/25 11:15 06/11/25 11:15 06/11/25 11:15 06/11/25 11:15 06/11/25 11:15
Intake & Output
06/09/25 06/10/25 06/11/25 06/12/25
06:59 06:59 06:59 06:59
Intake Total 720 / 720 1440 / 1440
Output Total 2150 / 2150 2230 / 2230
Balance -1430 / -1430 -790 / -790
Physical Exam
Physical Exam
GEN: NAD, AAO x3
HEENT: EOMI, MMM
LUNGS: RA. Decreased bases B/L
CV: Afib on tele.
PV: No edema B/L LE
--- NOTE | 2025-06-11 14:34 | CM ---
Chart reviewed. Patient will d/c home today
Met w/ patient bedside, aware of d/c. CM offered VN services, patient declined
Patient confirmed his daughter will transport
IMM verbally reviewed, copy provided, copy on chart
No CM needs at this time
Plan: Home, no needs
[2025-06-11 15:32] VITALS: BP 133/58
[2025-06-11] MEDS: APRESOLINE PO (16:00)
--- NOTE | 2025-06-12 11:18 | W.HF.CON ---
Heart Failure
- LV Function
Left ventricular function study result: LV Ejection fraction 41-49%
Ejection Fraction Percentage: 45
- ARNI
Patient already on ARNI: No
Heart Failure ARNI Contraindication: Worsening Renal Function
- ACEI/ARB
Patient already on ACEI/ARB: No
Heart Failure ACEI/ARB Contraindication: Worsening Renal Function
- Beta Jes
Patient already on Evidence Based Beta Jes: Yes
- Mineralocorticord Receptor Antagonist
Patient already on MRA: No
Heart Failure MRA Contraindication: Patient Refusal (CKD)
- SGLT-2 Inhibitor
Patient already on SGLT-2 Inhibitor: Yes
- Hydralazine & Isosorbide Dinitrate
Patient already on Hydralazine & Isosorbide Dinitrate: Yes
- Afib Anticoagulation
Patient already on Anticoagulation for Afib: Yes
- NYHA CHF Classification
NYHA CHF Classification Level: Class III - Symptoms w/ min exertion, interferes w/ nml daily activity
- ACC/AHA Stage
ACC/AHA Stage: Stage C: Symptomatic Heart Failure
== END 2025-06-11 17:21 | disposition home or self-care (01) | DRG 291 ==
LOC: 4 WEST ACU 11:02
PROVIDERS: Student in an Organized Health Care Education/Training Program; ADMITTING PHYSICIAN Hospitalist; CONSULT PHYSICIAN Internal Medicine Critical Care Medicine; CONSULT PHYSICIAN Nuclear Medicine Nuclear Cardiology; EMERGENCY PHYSICIAN Emergency Medicine; FAMILY PHYSICIAN Family Medicine
DX: I13.0 Hypertensive heart and chronic kidney disease with heart failure and stage 1 through stage 4 chronic kidney disease, or unspecified chronic kidney disease (principal); I50.23 Acute on chronic systolic (congestive) heart failure; J96.01 Acute respiratory failure with hypoxia; I48.21 Permanent atrial fibrillation; J98.11 Atelectasis; J43.9 Emphysema, unspecified; J44.9 Chronic obstructive pulmonary disease, unspecified; Z87.891 Personal history of nicotine dependence; Z11.52 Encounter for screening for COVID-19; Z90.49 Acquired absence of other specified parts of digestive tract; N18.32 Chronic kidney disease, stage 3b; D50.9 Iron deficiency anemia, unspecified; E78.00 Pure hypercholesterolemia, unspecified; I44.7 Left bundle-branch block, unspecified; K21.9 Gastro-esophageal reflux disease without esophagitis; Z66 Do not resuscitate; Z77.090 Contact with and (suspected) exposure to asbestos; Z79.01 Long term (current) use of anticoagulants; Z79.84 Long term (current) use of oral hypoglycemic drugs; Z79.899 Other long term (current) drug therapy
CPT/HCPCS: 71046; 80048; 80053; 82728; 83540; 83550; 83735; 83880; 84484; 85025; 85027; 87449; 87502; 87811; 87899; 93005; 93306; 94640; 96374; 97162; 97166; 99285